=== PATIENT | female | born 1995 | race Caucasian/White ===

== ENCOUNTER 2019-03-17 13:15 | Outpatient (CLI) | payer MEDICAID, SELFPAY ==
--- NOTE | 2019-03-17 13:30 | US_ITS ---
WS: [id number] OB ultrasound, 03/17/2019 Clinical Data: GESTATIONAL DIABETES GROWTH CHECK Comparison: OB ultrasound, 02/17/2019. Findings: There is a single intrauterine in the vertex presentation. The placenta is Anterior and gra de 2. The heart rate is 141 beats per minute. Measurements of growth and development: BPD: 9.1 cm HC: 34.5 cm AC: 32.1 cm FL: 7.1 cm The estimated weight is 2994 or approximately 6 pounds 10 ounces. The estimated gestational age is 37w2d with an MANI of approximately 04/05/2019. US/ [place] [id number] Impression: 1. Single intrauterine in vertex presentation. 2. Estimated gestational age 37w2d with an MANI of 04/05/2019. 3. heart rate 141 beats per minute.
== END 2019-03-17 13:16 | disposition home or self-care (01) ==
LOC: RAD 13:17
PROVIDERS: Family Provider Family Medicine; PCP Family Medicine; Visit Provider Family Medicine
DX: O24.419 Gestational diabetes mellitus in pregnancy, unspecified control (principal); Z3A.37 37 weeks gestation of pregnancy
CPT/HCPCS: 76816

== ENCOUNTER 2019-03-28 12:05 | Outpatient (CLI) | payer MEDICAID, SELFPAY ==
[2019-03-28] VITALS (11 sets, daily range): BP systolic 108–139; BP diastolic 56–89; PULSE 94–118; RESP 18; TEMP 36.8; BMI 29.2
[2019-03-28 13:07] LABS: Add Urine Microscopic? YES; Bilirubin Urine Neg (NEGATIVE); Blood Urine 2+ (Negative); Glucose Urine UA Norm (Normal); Ketones Urine Negative (Negative); Leukocyte Esterase Urine Negative (Negative); Nitrate Urine Negative (Negative); Protein Urine Neg (Negative); Specific Gravity, Urine 1.005 (1.005-1.030); Urine Appearance Hazy (CLEAR); Urine Color Straw (Yellow); Urobilinogen Urine Norm (Negative)
[2019-03-28 13:28] LABS: Add Urine Culture? No; Bacteria Urine TRACE; RBC Urine 0-4 /hpf (0-2); Squamous Epithelial Cell Urine 40-55 (0-5)
[2019-03-28 13:41] LABS: Basophils % 0.3 %; Eosinophils % 0.4 %; Hematocrit 35.5 % (37.0-47.0); Hemoglobin 10.9 g/dL (11.5-15.3); Lymphocytes # 1.5 10^3/uL (0.8-4.8); Mean Corpuscular HGB Conc 30.7 g/dL (30.0-36.0); Mean Corpuscular Hemoglobin 28.1 pg (28.0-34.0); Mean Corpuscular Volume 91.5 fL (81-99); Mean Platelet Volume 9.8 fL (7.4-10.4); Monocytes # 0.7 10^3/uL (0.2-0.9); Monocytes % 9.4 %; Neutrophils # 4.7 10^3/uL (1.8-7.7); Neutrophils % 67.6 %; Nucleated Red Blood Cells % 0 %; Platelet Count 320 10^3/cmm (130-400); Red Blood Count 3.88 10^6/uL (4.1-5.3); Red Cell Distribution Width 15.9 % (12.1-15.1)
[2019-03-28 13:52] LABS: Alanine Aminotransferase 17 U/L (0-33); Albumin Level 3.3 g/dL (3.5-5.2); Alkaline Phosphatase 185 IU/L (35-105); Aspartate Amino Transferase 18 U/L (0-32); Blood Urea Nitrogen 5 mg/dL (6-20); Carbon Dioxide 19 mmol/L (22-29); Chloride 105 mmol/L (98-107); Globulin 3.1 g/dL (1.3-4.6); Glomerular Filtration Rate 121.8 mL/min (90-130); Glucose 102 mg/dL (74-109); Sodium 136 mmol/L (136-145); Total Bilirubin 0.2 mg/dL (0.15-1.2); Total Protein 6.4 g/dL (6.6-8.7)
--- NOTE | 2019-03-28 14:27 | PC.NURSE ---
at 1147 called to let this nurse know that is is sending this pt here with orders for an NST, Pre-eclamptic work up, urine-protein creatinine ratio and serial blood pressures every 15 min.
[2019-03-28 14:40] LABS: Urine Creatinine 34 mg/dL (28-217); Urine Protein Random 5 mg/dL
[2019-03-28 15:02] LABS: UPRO/UCREAT Ratio 0.15 mg/mg CR
== END 2019-03-28 15:17 | disposition home or self-care (01) ==
PROVIDERS: Family Provider Family Medicine; PCP Family Medicine; Visit Provider Family Medicine
DX: O13.9 Gestational [pregnancy-induced] hypertension without significant proteinuria, unspecified trimester (principal); Z3A.00 Weeks of gestation of pregnancy not specified
CPT/HCPCS: 36415; 59025; 80053; 81001; 82570; 84156; 84550; 85025; 99211

== ENCOUNTER 2019-03-31 13:24 | Outpatient (CLI) | payer MEDICAID, SELFPAY ==
[2019-03-31 13:48] VITALS: BP 134/83; PULSE 107; RESP 18
[2019-03-31 14:03] VITALS: BP 137/82; PULSE 100; RESP 18
[2019-03-31 14:18] VITALS: BP 0/0
[2019-03-31 14:20] VITALS: BP 134/91; PULSE 98
[2019-03-31 14:35] VITALS: BMI 29.3
== END 2019-03-31 14:30 | disposition home or self-care (01) ==
LOC: OPOB 14:09 → OBGYN 14:24 → OPOB 04-01 08:56
PROVIDERS: Family Provider Family Medicine; PCP Family Medicine; Visit Provider Family Medicine
DX: O16.9 Unspecified maternal hypertension, unspecified trimester (principal); Z3A.00 Weeks of gestation of pregnancy not specified
CPT/HCPCS: 59025; 99211

== ENCOUNTER 2019-04-01 23:00 | Outpatient (CLI) | payer BC, MEDICAID, SELFPAY ==
[2019-04-01 23:15] VITALS: RESP 18; TEMP 36.8
[2019-04-01 23:34] VITALS: BP 142/97; PULSE 93
[2019-04-01 23:36] VITALS: BMI 29.7
[2019-04-01 23:49] VITALS: BP 131/80; PULSE 85
[2019-04-02 00:03] VITALS: BP 0/0
[2019-04-02 00:04] VITALS: BP 139/90; PULSE 84
[2019-04-04 11:35] VITALS: BP 141/79; PULSE 133
== END 2019-04-02 00:10 | disposition home or self-care (01) ==
LOC: OPOB 23:14 → OBGYN 23:59 → OPOB 04-04 07:44
PROVIDERS: Family Provider Family Medicine; PCP Family Medicine; Visit Provider Family Medicine
DX: O26.899 Other specified pregnancy related conditions, unspecified trimester (principal); Z3A.00 Weeks of gestation of pregnancy not specified
CPT/HCPCS: 99211

== ENCOUNTER 2019-04-04 11:29 | Outpatient (CLI) | payer BC, MEDICAID, SELFPAY ==
[2019-04-04 11:34] VITALS: BP 141/79; PULSE 113
[2019-04-04 11:41] VITALS: RESP 16; TEMP 36.7
[2019-04-04 11:42] VITALS: BMI 29.5
[2019-04-04 11:43] VITALS: BMI 29.5
[2019-04-04 12:23] VITALS: BP 138/80; PULSE 118
[2019-04-04 12:38] LABS: Basophils % 0.1 %; Eosinophils % 0.5 %; Hematocrit 38.5 % (37.0-47.0); Hemoglobin 12.2 g/dL (11.5-15.3); Lymphocytes # 1.7 10^3/uL (0.8-4.8); Mean Corpuscular HGB Conc 31.7 g/dL (30.0-36.0); Mean Corpuscular Hemoglobin 27.7 pg (28.0-34.0); Mean Corpuscular Volume 87.5 fL (81-99); Mean Platelet Volume 10.8 fL (7.4-10.4); Monocytes # 0.5 10^3/uL (0.2-0.9); Monocytes % 6.3 %; Neutrophils # 6.1 10^3/uL (1.8-7.7); Neutrophils % 72.9 %; Nucleated Red Blood Cells % 0 %; Platelet Count 276 10^3/cmm (130-400); Red Cell Distribution Width 16.3 % (12.1-15.1); White Blood Count 8.3 10^3/uL (4.0-10.0)
[2019-04-04 12:44] LABS: Add Urine Microscopic? YES; Bilirubin Urine Neg (NEGATIVE); Blood Urine 2+ (Negative); Glucose Urine UA Norm (Normal); Ketones Urine Negative (Negative); Leukocyte Esterase Urine Negative (Negative); Nitrate Urine Negative (Negative); Protein Urine Neg (Negative); Urine Appearance SL Hazy (CLEAR); Urine Color Straw (Yellow); Urobilinogen Urine Norm (Negative); pH Urine 7 (5-7)
[2019-04-04 12:48] LABS: Chloride 102 mmol/L (98-107); Potassium 3.8 mmol/L (3.5-5.1); Sodium 133 mmol/L (136-145)
[2019-04-04 12:51] LABS: Urine Creatinine 43 mg/dL (28-217); Urine Protein Random 5 mg/dL
[2019-04-04 12:54] LABS: UPRO/UCREAT Ratio 0.12 mg/mg CR
[2019-04-04 12:57] LABS: Bacteria Urine 1+; RBC Urine 0-4 /hpf (0-2); Squamous Epithelial Cell Urine 15-25 (0-5); WBC Urine 0-4 /hpf (0-5)
[2019-04-04 12:58] LABS: Add Urine Culture? No
[2019-04-04 13:02] LABS: Alanine Aminotransferase 18 U/L (0-33); Albumin Level 3.6 g/dL (3.5-5.2); Alkaline Phosphatase 210 IU/L (35-105); Anion Gap 16.8 (5-19); Aspartate Amino Transferase 19 U/L (0-32); Blood Urea Nitrogen 9 mg/dL (6-20); Calcium 9.9 mg/dL (8.5-10.5); Carbon Dioxide 19 mmol/L (22-29); Globulin 3.4 g/dL (1.3-4.6); Glomerular Filtration Rate 87.4 mL/min (90-130); Glucose 131 mg/dL (74-109); Total Bilirubin 0.2 mg/dL (0.15-1.2); Uric Acid 6.7 mg/dL (2.4-5.7)
== END 2019-04-04 12:20 | disposition home or self-care (01) ==
PROVIDERS: Family Provider Family Medicine; PCP Family Medicine; Visit Provider Family Medicine
DX: O24.419 Gestational diabetes mellitus in pregnancy, unspecified control (principal); Z3A.00 Weeks of gestation of pregnancy not specified; O16.9 Unspecified maternal hypertension, unspecified trimester
CPT/HCPCS: 36415; 59025; 80053; 81001; 82570; 84156; 84550; 85025; 99211; A9270

== ENCOUNTER 2019-04-06 19:30 | Inpatient (IN) | payer BC, MEDICAID, SELFPAY ==
[2019-04-06] VITALS (8 sets, daily range): BP systolic 0–156; BP diastolic 0–93; PULSE 79–110; RESP 16–18; TEMP 36.9; BMI 29.9
[2019-04-06] MEDS: miSOPROStol 100 mcg tablet 25 MCG VAGINAL (21:27)
[2019-04-06 21:43] LABS: Basophils % 0.2 %; Eosinophils % 0.3 %; Hematocrit 35.8 % (37.0-47.0); Hemoglobin 11.3 g/dL (11.5-15.3); Lymphocytes % 22.4 %; Mean Corpuscular HGB Conc 31.6 g/dL (30.0-36.0); Mean Corpuscular Hemoglobin 27.4 pg (28.0-34.0); Mean Corpuscular Volume 86.9 fL (81-99); Mean Platelet Volume 11.1 fL (7.4-10.4); Monocytes # 0.8 10^3/uL (0.2-0.9); Monocytes % 9.2 %; Neutrophils % 67.4 %; Nucleated Red Blood Cells % 0 %; Platelet Count 295 10^3/cmm (130-400); Red Blood Count 4.12 10^6/uL (4.1-5.3); Red Cell Distribution Width 16.1 % (12.1-15.1); White Blood Count 8.9 10^3/uL (4.0-10.0)
[2019-04-06 21:44] LABS: Glucose Point of Care 103 mg/dL (70-110)
[2019-04-07] VITALS (139 sets, daily range): BP systolic 0–167; BP diastolic 0–95; PULSE 86–141; RESP 16–19; TEMP 36.6–37.8; O2SAT 72–99
[2019-04-07] MEDS: promethazine 25 mg/mL SDV 1 mL IM (02:41)
[2019-04-07] MEDS: morphine 4 mg/mL SDV 1 mL 8 MG IM (02:42)
--- NOTE | 2019-04-07 03:17 | PC.NURSE ---
Placed on left side with wedge under back. Pain medication was injected with ease into the right glut. IM
[2019-04-07] MEDS: dextrose 5%-lactated ringers 1,000 ML 125 ML IV (06:45)
--- NOTE | 2019-04-07 06:56 | PC.NURSE ---
D5LR started at 125ml
--- NOTE | 2019-04-07 07:30 | PM.OBGYHP ---
Providers/Chief Complaint Admitting Physician: Mahsa Clay MD Primary Care Provider: Mahsa Clay MD Chief Complaint: iup HPI DIRECTOR [employer] History of Present Illness Madhuri Moncada is a 24 year old female 1 para 0 with an EDC of 04/14/2019 as determined by sure last menstrual period of 07/08/2018 and confirmed by ultrasound and positive test on 08/09/2018. She presented last evening at 38-6/7 weeks gestation for cervical ripening and induction of labor secondary to gestational hypertension without evidence of preeclampsia or severe features. Her blood pressure began to rise in her 36-week of , and labs and testing have been fine and she has been asymptomatic. Patient also has gestational diabetes which has been lifestyle controlled, hypothyroidism and anemia of . She had her membranes swept in the office during her routine clinical visit earlier this week. Present Details : 1 Para: 0 Date of Last Menstrual Period: 07/02/18 Calculated Date of Delivery: 04/08/19 Gestational Age Based on Last Menstrual Period: 39 Labs Rubella: Immune RPR: Negative Review of Systems Const: Denies: fever Eyes: Denies: blurry vision or blind spots Card: Denies: chest pain or edema Resp: Denies: shortness of breath or productive cough GI: Denies: nausea or vomiting : Reports: pelvic pain (Consistent with intermittent contractions after administration of Cytotec) Skin/Breast: Denies: rash or yellow skin Neuro: Denies: headache Medications/Allergies Allergies Allergy/AdvReac Type Severity Reaction Status Date / Time amoxicillin Allergy ALGY-Rash Verified 03/22/19 09:50 REPLACED BY [facility] DIRECTOR [employer] Statuses (acute, chronic, etc) shown below reflect problem list status as previously entered and may not be historically accurate Medical History (Updated 04/07/19 @ 08:01 by Mahsa Clay MD) Anxiety and depression (Acute) Hypothyroidism (acquired) (Acute) Family History (Updated 04/07/19 @ 07:36 by Mahsa Clay MD) Father CAD (coronary artery disease) Grandmother Diabetes Social History (Updated 04/07/19 @ 07:38 by Mahsa Clay MD) Smoking and tobacco status: never smoked Second hand smoke exposure: Yes Alcohol intake: never Substance/Drug Use: never Adopted: No Caregiver/support person: Yes Lives independently: Yes Household members: spouse Marital status: Number of children: 0 Number of grandchildren: 0 History History 1 Term 0 Miscarriages/Ectopic 0 0 Living Children 0 Vitals/I&O/Wt Last Vital Signs Temp 98.6 F 04/07/19 03:40 Pulse 98 04/07/19 06:38 Resp 18 04/07/19 03:40 BP 146/69 04/07/19 06:38 04/06/19 04/07/19 04/07/19 22:59 06:59 14:59 Intake Total 660 / 660 Output Total 900 / 900 Balance -240 / -240 Weight last 48 hrs Weight 92.079 kg Physical Exam Narrative: EXAM NARRATIVE: For complete physical examination please refer to her record. heart tones are category 1 with a normal baseline and moderate variability. There are accelerations and no decelerations. Upon patient's arrival last evening she had occasional contractions. Currently she is kai every 2 minutes, and they are moderate to strong. Const: COMMON NORMALS: no apparent distress, oriented x3, healthy appearing, alert and well nourished Resp: COMMON NORMALS: normal respiratory effort Cardio: COMMON NORMALS: regular rate and regular rhythm RATE: regular rate RHYTHM: regular rhythm : MANUAL OB EXAM: dilated 2 cm (2-1/2), effaced 75%, station high (-3) and other (Vertex) AMNIOTIC FLUID: clear Extremity: COMMON NORMALS: no pedal edema Neuro: COMMON NORMALS: oriented x3 SENSORIUM/ORIENTATION: Yes alert Psych: COMMON NORMALS: mental status grossly normal, thought process normal, cooperative, affect normal, speech normal and activity/motor behavior normal SPEECH: Yes normal speech MOOD & AFFECT: Yes anxious THOUGHT PROCESS: normal thought process Skin: COMMON NORMALS: no rashes or lesions noted, skin turgor normal and no jaundice GENERAL SKIN EXAM: no rashes or lesions noted and turgor normal Data : 04/06/19 21:10 Other Labs: Blood type: O+ Antibody screen: Negative Rubella: Immune Hemoglobin: Initially 12.9, 28-week recheck 11.3 Urine culture: Negative Hepatitis B surface antigen: Negative RPR: Negative Hepatitis C antibody: Negative Rubella: Immune HIV screen: Negative Pap: Normal GC/Chlamydia: Negative/negative 1 hour GTT: 177 3-hour GTT: Fasting of 96, 1 hour 212, 2-hour 207, 3-hour 110 Group B strep screen: Negative TSH: Has been within normal range for when checked with each trimester, antibodies negative A&P Assessment and plan (1) Encounter for induction of labor: Secondary to gestational hypertension Cytotec was discussed in the office and placed last evening upon her arrival. She has been kai regularly and requires no further doses at this time. She is actually requesting an epidural and is receiving IV fluids in preparation for it at this time. Status: Acute Code(s): Z34.90 - Encounter for supervision of normal , unspecified, unspecified trimester (2) 39 weeks gestation of : Status: Acute Code(s): Z3A.39 - 39 weeks gestation of (3) Hypothyroidism affecting , antepartum: Patient will continue her levothyroxine, and we will check her TSH . Status: Acute Code(s): O99.280 - Endocrine, nutritional and metabolic diseases complicating , unspecified trimester; E03.9 - Hypothyroidism, unspecified (4) Gestational diabetes mellitus (GDM) affecting first : Patient has had good control with lifestyle alone. We will monitor blood sugars throughout labor and treat accordingly. Status: Acute Code(s): O24.419 - Gestational diabetes mellitus in , unspecified control (5) Gestational hypertension affecting first : Patient has been asymptomatic and has had normal labs with no evidence of preeclampsia. She has had no blood pressures in the severe range. We will continue to monitor throughout labor and the period. Status: Acute Code(s): O13.9 - Gestational [-induced] hypertension without significant proteinuria, unspecified trimester (6) Anemia affecting first : Patient has had a CBC upon admission and will monitor postdelivery as well. She has been taking iron regularly. Status: Acute Code(s): O99.019 - Anemia complicating , unspecified trimester (7) Spontaneous rupture of membranes: This occurred this morning and was productive of clear fluid. Status: Acute Attestations Medical Necessity Statement*: As patient has not yet delivered but did experience tenuous rupture of membranes, she will continue to require inpatient hospitalization. Coding Level of Care Code Acute Unemployment Insurance Hearing Officer for Chg Fwd Diagnoses Encounter for induction of labor Z34.90 39 weeks gestation of Z3A.39 Hypothyroidism affecting , antepartum O99.280; E03.9 Gestational diabetes mellitus (GDM) affecting first O24.419 Gestational hypertension affecting first O13.9 Anemia affecting first O99.019 Spontaneous rupture of membranes
[2019-04-07 07:45] LABS: Glucose Point of Care 149 mg/dL (70-110)
[2019-04-07] MEDS: lactated ringers 1,000 ML 999 ML IV (07:49)
[2019-04-07] MEDS: lactated ringers 1,000 ML 125 ML IV ×3 (09:49→23:56)
[2019-04-07 09:59] LABS: Glucose Point of Care 97 mg/dL (70-110)
[2019-04-07 14:05] LABS: Glucose Point of Care 78 mg/dL (70-110)
[2019-04-07 18:10] LABS: Glucose Point of Care 76 mg/dL (70-110)
--- NOTE | 2019-04-07 19:32 | ANES.PROC ---
Anesthesia Procedures Procedure/Date: 04/07/19 Procedure Narrative: called to bedside by RN to assess epidural that had been working previously but was not providing much pain relief 08/09. untaped and checked for patency, bolused with PF Lido 2% 10ml. retaped and assessed for numbness. Patient stated that her legs were getting warm and she felt better. reassessed 10 minutes later, patient laughing and visiting with family, stating she felt much better. Both legs were heavy. Epidural pump at 13ml/hr
--- NOTE | 2019-04-07 20:30 | PC.NURSE ---
Pt called RN to room to assess epidural, patient c/o pain and burning at epidural site and no relief from contraction pain. RN stopped epidural at 2015. Call to anesthesia at 2019 to Dedra Calix CRNA to update on patient complaints and that pump was stopped. ACCOUNTANT ASSISTANT orders to remove epidural and call back if patient decided to get another epidural placed as patient had previously reported that she did not want to redo the epidural.
--- NOTE | 2019-04-07 21:55 | ANES.PROC ---
Anesthesia Procedures Procedure/Date: 04/07/19 Procedure Narrative: 1st epidural placed this morning was no longer providing pain relief. It also was causing pain when PCEA bolus was given. attempts were made previously as noted in chart. at that time patient refused to have the epidural replaced. RN later notified me that patient had changed her mind. epidural placed easily without complications Epidural: Time Out Performed: Yes Consents Signed: Procedure Consent Consent: from patient, risks and benefits reviewed and patient agrees to proceed Lumbar Level: L3-L4 Epidural position: sitting Epidural procedure: sterile prep of area, 1% lidocaine to numb the area, 18 g needle, negative for paresthesia passed, neg for paresthesia, test dose given, 1.5% xylocaine 1:200k epi (5ml), placed PCEA, no systemic response, sterile dressing applied, L.U.D. no apparent complications and 0.2% Ropiavacaine @ mls/hr (13)
[2019-04-07 22:21] LABS: Glucose Point of Care 100 mg/dL (70-110)
[2019-04-08] VITALS (76 sets, daily range): BP systolic 0–168; BP diastolic 0–95; PULSE 76–150; RESP 16–18; TEMP 36.7–37.3; O2SAT 94–98
--- NOTE | 2019-04-08 00:37 | PM.OBGYPN ---
APPARATUS ENGINEERING TECHNOLOGIST Subjective Subjective: Interval history: Patient experienced spontaneous rupture of membranes 04/07/2019 at approximately 6:32 AM and continued to contract regularly with increasing frequency and intensity off of the only dose of Cytotec that she had the night prior. She received an epidural and was initially comfortable for quite some time. She has had continued leakage of clear fluid. Her epidural began not be as effective, and she received a dose of lidocaine per anesthesia which provided relief for a few hours. Throughout this time she continued to gradually dilate and was 8 cm dilated and 0 station at 9 PM. She then opted to have her epidural replaced and was soon comfortable again. She then rested and informed us that she was having pressure most of the time with an increase in pressure during her contractions. Upon recheck at midnight she was 8 cm dilated and 0 to +1 station. Labor: Station: 0 Amniotic Membrane Status: Leaking Monitor Mode: External Contraction Pattern: Regular Status: Category l Vitals/I&O/Wt Last Vital Signs Temp 99.9 F H 04/07/19 21:00 Pulse 133 H 04/08/19 00:28 Resp 19 H 04/07/19 21:00 BP 143/91 04/08/19 00:28 Pulse Ox 97 04/07/19 21:44 04/07/19 04/07/19 04/08/19 14:59 22:59 06:59 Intake Total 770.833 / 770.833 500.50 / 1271.333 Output Total 1300 / 1300 Balance 770.833 / 770.833 -799.50 / -28.667 Weight last 48 hrs Weight 92.079 kg Physical Exam Narrative: EXAM NARRATIVE: heart tones have a baseline in the 150s with moderate variability, accelerations and an occasional shallow variable deceleration. Contractions are every 2 to 5 minutes and moderate to strong. : MANUAL OB EXAM: dilated 8 cm, effaced (85 to 90%), station (0 to +1) and other (caput noted) Psych: COMMON NORMALS: cooperative MOOD & AFFECT: Yes anxious (At times which is chronic for her.) Urinary Catheter Management^: Lopez: Cath Placed During This Visit: yes Urethral Indwelling: Yes Reason for Continuing Indwelling Catheter: Required Immobilization for Trauma or Surgery or Anesthesia Urinary Catheter Date of Insertion: 04/07/19 Urinary Catheter Time of Insertion: 09:21 Data : 04/06/19 21:10 A&P Assessment and plan (1) 39 weeks gestation of : Status: Acute Code(s): Z3A.39 - 39 weeks gestation of (2) Encounter for induction of labor: At this time we will augment her labor with Pitocin in order to achieve more frequent and stronger contractions. Status: Acute Code(s): Z34.90 - Encounter for supervision of normal , unspecified, unspecified trimester (3) Hypothyroidism affecting , antepartum: Status: Acute Code(s): O99.280 - Endocrine, nutritional and metabolic diseases complicating , unspecified trimester; E03.9 - Hypothyroidism, unspecified (4) Gestational diabetes mellitus (GDM) affecting first : Patient's blood glucose has remained below 120 throughout her labor with the exception of 1 checked early this morning just after she had a liquid snack. Status: Acute Code(s): O24.419 - Gestational diabetes mellitus in , unspecified control (5) Gestational hypertension affecting first : She remains without severe features and has had no evidence of preeclampsia. Status: Acute Code(s): O13.9 - Gestational [-induced] hypertension without significant proteinuria, unspecified trimester (6) Anemia affecting first : Status: Acute Code(s): O99.019 - Anemia complicating , unspecified trimester (7) Spontaneous rupture of membranes: We will continue to monitor for signs of infection given her length of time with ruptured membranes. Status: Acute Attestations Medical Necessity Statement*: As patient has not yet delivered she will require continued inpatient hospitalization. Coding Level of Care Code Acute Viscosity Tester for Chg Fwd Diagnoses 39 weeks gestation of Z3A.39 Encounter for induction of labor Z34.90 Hypothyroidism affecting , antepartum O99.280; E03.9 Gestational diabetes mellitus (GDM) affecting first O24.419 Gestational hypertension affecting first O13.9 Anemia affecting first O99.019 Spontaneous rupture of membranes
[2019-04-08] MEDS: oxytocin 30 UNIT/500 ML BAG IV (00:39)
--- NOTE | 2019-04-08 02:28 | PC.NURSE ---
MD at bedside discussing POC with patient
[2019-04-08 02:40] LABS: Glucose Point of Care 102 mg/dL (70-110)
--- NOTE | 2019-04-08 03:51 | P.PN_ITS ---
ASSISTANT CLINICAL NURSE MANAGER Subjective Subjective: Interval history: We began Pitocin augmentation shortly after midnight, and patient has been experiencing more intense and more frequent contractions and pressure in her perineum. She is even had increased bloody show. Labor: Station: +1 Amniotic Membrane Status: Leaking Monitor Mode: External Contraction Pattern: Regular Status: Category l Vitals/I&O/Wt Last Vital Signs Temp 98.9 F 04/08/19 03:45 Pulse 120 H 04/08/19 03:42 Resp 18 04/08/19 03:45 BP 150/84 04/08/19 03:42 Pulse Ox 97 04/07/19 21:44 04/07/19 04/07/19 04/08/19 14:59 22:59 06:59 Intake Total 770.833 / 770.833 500.50 / 1271.333 25.467 / 1296.800 Output Total 1300 / 1300 Balance 770.833 / 770.833 -799.50 / -28.667 25.467 / -3.200 Weight last 48 hrs Weight 92.079 kg Physical Exam Narrative: EXAM NARRATIVE: heart tones have a baseline in the 150s with moderate variability, accelerations and an occasional variable deceleration. Contractions are every 2 to 2-1/2 minutes and strong. : MANUAL OB EXAM: dilated 9 cm, effaced (90%) and station +1 Urinary Catheter Management^: Lopez: Cath Placed During This Visit: yes Urethral Indwelling: Yes Reason for Continuing Indwelling Catheter: Required Immobilization for Trauma or Surgery or Anesthesia Urinary Catheter Date of Insertion: 04/07/19 Urinary Catheter Time of Insertion: 09:21 Data : 04/06/19 21:10 A&P Assessment and plan (1) Encounter for induction of labor: Now that patient has developed a more adequate contraction pattern with increased intensity and frequency of her contractions on the Pitocin, she is experiencing cervical change once again. Her pain is well controlled with the exception of the pressure which she is handling quite well. She and her are encouraged by the cervical change. She has remained afebrile. We will continue to follow her progress closely and expect continued progress given rupture of membrane status. Status: Acute Code(s): Z34.90 - Encounter for supervision of normal , unspecified, unspecified trimester (2) 39 weeks gestation of : Status: Acute Code(s): Z3A.39 - 39 weeks gestation of (3) Hypothyroidism affecting , antepartum: Status: Acute Code(s): O99.280 - Endocrine, nutritional and metabolic diseases complicating , unspecified trimester; E03.9 - Hypothyroidism, unspecified (4) Gestational diabetes mellitus (GDM) affecting first : Accu-Cheks remain less than 120 Status: Acute Code(s): O24.419 - Gestational diabetes mellitus in , unspecified control (5) Gestational hypertension affecting first : Blood pressures have been stable with no pressures being in the severe range. Patient remains asymptomatic. Status: Acute Code(s): O13.9 - Gestational [-induced] hypertension without significant protei oleg, unspecified trimester (6) Anemia affecting first : Status: Acute Code(s): O99.019 - Anemia complicating , unspecified trimester (7) Spontaneous rupture of membranes: Status: Acute Attestations Medical Necessity Statement*: As patient has not yet delivered she will co ntinue to need inpatient hospitalization. Coding Level of Care Code Acute Regional Sales Leader for Chg Fwd Diagnoses Encounter for induction of labor Z34.90 39 weeks gestation of Z3A.39 Hypothyroidism affecting , antepartum O99.280; E03.9 Gestational diabetes mellitus (GDM) affecting first O24.419 Gestational hypertension affecting first O13.9 Anemia affecting first O99.019 Spontaneous rupture of membranes
[2019-04-08] MEDS: diphenhydrAMINE 50 mg/mL SDV 1mL 25 MG IVP (04:44)
[2019-04-08 06:30] LABS: Glucose Point of Care 114 mg/dL (70-110)
--- NOTE | 2019-04-08 06:31 | PC.NURSE ---
Dr. Clay at nurses station, updated on SVE, vitals and strip reviewed. MD orders to call when complete dilation.
[2019-04-08] MEDS: lactated ringers 1,000 ML 125 ML IV ×2 (07:57→12:46)
--- NOTE | 2019-04-08 08:12 | P.PN_ITS ---
OVERAGE SHORTAGE AND DAMAGE CLERK Subjective Subjective: Interval history: Patient continued on Pitocin until she was on 20 milliunits/min and was kai every 2 to 2-1/2 minutes. She had been dilated from 9 cm to just a rim of cervix remaining from 7-11 o'clock on clock face. We tried several different position changes, and the rim remained and then began to swell. Labor: Station: +1 Amniotic Membrane Status: Leaking Monitor Mode: External Contraction Pattern: Regular Status: Category l Vitals/I&O/Wt Last Vital Signs Temp 98.4 F 04/08/19 06:29 Pulse 118 H 04/08/19 07:25 Resp 16 04/08/19 06:29 BP 0/0 04/08/19 08:10 Pulse Ox 97 04/07/19 21:44 04/07/19 04/08/19 04/08/19 22:59 06:59 14:59 Intake Total 500.50 / 1271.333 142.884 / 4852.219 7013 / 1000 Output Total 1300 / 1300 800 / 2100 Balance -799.50 / -28.667 -657.116 / -356.743 0965 / 1000 Weight last 48 hrs Weight 92.079 kg Physical Exam Narrative: EXAM NARRATIVE: heart tones have a baseline in the 150s with moderate variability, accelerations and occasional variable decelerations. She is kai every 2 to 2-1/2 minutes strong intensity. : MANUAL OB EXAM: dilated (Maternal right rim with swelling and firmness) and station +1 Urinary Catheter Management^: Lopez: Cath Placed During This Visit: yes Urethral Indwelling: Yes Reason for Continuing Indwelling Catheter: Required Immobilization for Trauma or Surgery or Anesthesia Urinary Catheter Date of Insertion: 04/07/19 Urinary Catheter Time of Insertion: 09:21 Data : 04/06/19 21:10 A&P Assessment and plan (1) Encounter for induction of labor: At this point with all position changes having been tried with no progress with recent cervical exam and cervical swelling and firmness, I have called a section. Dr. Holloway and anesthesiology were informed. Patient and family are in agreement. Patient remains afebrile and heart tones remained stable. Blood glucose has been no higher than 114. Status: Acute Code(s): Z34.90 - Encounter for supervision of normal , unspecified, unspecified trimester (2) 39 weeks gestation of : Status: Acute Code(s): Z3A.39 - 39 weeks gestation of (3) Hypothyroidism affecting , antepartum: Status: Acute Code(s): O99.280 - Endocrine, nutritional and metabolic diseases complicating , unspecified trimester; E03.9 - Hypothyroidism, unspecified (4) Gestational diabetes mellitus (GDM) affecting first : Status: Acute Code(s): O24.419 - Gestational diabetes mellitus in , unspecified control (5) Gestational hypertension affecting first : Status: Acute Code(s): O13.9 - Gestational [-induced] hypertension without significant proteinuria, unspecified trimester (6) Spontaneous rupture of membranes: Status: Acute (7) Anemia affecting first : Status: Acute Code(s): O99.019 - Anemia complicating , unspecified trimester Attestations Medical Necessity Statement*: As patient has not yet delivered she will continue to need inpatient hospitalization. Coding Level of Care Code Acute Air Cargo Ground Crew Supervisor for Chg Fwd Diagnoses Encounter for induction of labor Z34.90 39 weeks gestation of Z3A.39 Hypothyroidism affecting , antepartum O99.280; E03.9 Gestational diabetes mellitus (GDM) affecting first O24.419 Gestational hypertension affecting first O13.9 Spontaneous rupture of membranes Anemia affecting first O99.019
[2019-04-08] MEDS: citric acid-sodium citrate 30 mL UDC PO (08:22)
[2019-04-08] MEDS: famotidine 20 mg/2 mL INJ IVP (08:23)
[2019-04-08] MEDS: metoclopramide 5 mg/mL SDV 2 mL 10 MG IVP (08:23)
--- NOTE | 2019-04-08 08:36 | P.CONIM_ITS ---
Providers/Reason For Consult Consulting Physican/Specialty*: Toñito Holloway MD consultation for section Reason for Consult*: Need for section Attending Physician: Mahsa Clay MD Primary Care Provider: Mahsa Clay MD History of Present Illness History of Present Illness Madhuri Moncada is a 24 year old at 39.2 weeks gestation by LMP consistent with early ultrasound. Her is complicated by gestational diabetes that is lifestyle controlled, gestational hypertension, hypothyroidism, anemia, anxiety. The patient was brought in for induction of labor secondary to gestational diabetes and gestational hypertension. The patient was started on Cytotec on the evening of 04/06/2019. The patient may change and ruptured at approximately 6:32 AM on 04/07/2019. The patient was 9 cm around midnight and changed to an anterior rim around 3:00 in the morning on the morning of 04/08/2019. Despite multiple position changes, she has not progressed and has not gotten to the complete stage. For this reason I was consulted for section. Review of Systems Narrative: The patient denies any chest pains, shortness of breath, nausea, vomiting, diarrhea, constipation. The patient had 1 temperature of 100 overnight. Meds/Allergies Home Medications and Allergies Home Medications Medication Instructions Recorded Confirmed Type 1 tab PO DAILY 03/22/19 04/01/19 History ferrous sulfate 325 mg PO DAILY 03/22/19 04/01/19 History levothyroxine 25 mcg PO DAILY 03/22/19 04/01/19 History Allergies Allergy/AdvReac Type Severity Reaction Status Date / Time amoxicillin Allergy ALGY-Rash Verified 03/22/19 09:50 Current Medications Current Medications Generic Name Dose Route Start Last Admin Trade Name Freq PRN Reason Stop Dose Admin Ropivacaine 200 mg in 100 mls @ 6 mls/hr 04/07/19 07:45 04/08/19 04:55 Naropin Premix EPIDURAL 13 mls/hr .[id number] MAX Administration Lactated Ringer's 1,000 mls @ 125 mls/hr 04/07/19 23:45 04/08/19 07:57 Lactated Ringers IV 125 mls/hr .Q8H MAX Administration Oxytocin 30 unit in 500 mls @ 1 mls/hr 04/08/19 00:30 04/08/19 04:34 Pitocin IV 20 milliunit/min .Q24H AMX 20 mls/hr Titration Protocol 1 MILLIUNIT/MIN PFSH Acute PFSH: Statuses (acute, chronic, etc) shown below reflect problem list status as previously entered and may not be historically accurate Medical History Anxiety and depression (Acute) Hypothyroidism (acquired) (Acute) Surgical History No pertinent past surgical history (Acute) Family History Father CAD (coronary artery disease) Grandmother Diabetes Social History Smoking and tobacco status: never smoked Second hand smoke exposure: Yes Alcohol intake: never Substance/Drug Use: never Adopted: No Caregiver/support person: Yes Lives independently: Yes Household members: spouse Marital status: Number of children: 0 Number of grandchildren: 0 Female Reproductive History: Date of last menstrual period: 07/02/18 : 1 Vitals/I&O/Wt Last Vital Signs Temp 98.4 F 04/08/19 06:29 Pulse 118 H 04/08/19 07:25 Resp 16 04/08/19 06:29 BP 0/0 04/08/19 08:25 Pulse Ox 97 04/07/19 21:44 04/07/19 04/08/19 04/08/19 22:59 06:59 14:59 Intake Total 500.50 / 1271.333 142.884 / 5797.014 3479 / 1000 Output Total 1300 / 1300 800 / 2100 Balance -799.50 / -28.667 -657.116 / -795.562 4655 / 1000 Weight last 48 hrs Weight 203 lb Physical Exam Narrative: EXAM NARRATIVE: General: Alert and oriented x3 Eyes: Pupils equal round and reactive to light and accommodation Mouth: Mucous membranes moist, pharynx non-erythematous Cardiac: Regular rate and rhythm without murmurs Lungs: Clear to auscultation bilaterally without wheezes, crackles or rhonchi Abdomen: Soft, non-tender, fundus consistent with gestational age Extremities: Trace edema in the bilateral lower extremities Urinary Catheter Management^: Lopez: Cath Placed During This Visit: yes Urethral Indwelling: Yes Reason for Continuing Indwelling Catheter: Required Immobilization for Trauma or Surgery or Anesthesia Urinary Catheter Date of Insertion: 04/07/19 Urinary Catheter Time of Insertion: 09:21 A&P Assessment and plan (1) Spontaneous rupture of membranes: Status: Acute (2) Anemia affecting first : Status: Acute Code(s): O99.019 - Anemia complicating , unspecified trimester (3) Gestational hypertension affecting first : Status: Acute Code(s): O13.9 - Gestational [-induced] hypertension without significant proteinuria, unspecified trimester (4) Gestational diabetes mellitus (GDM) affecting first : Status: Acute Code(s): O24.419 - Gestational diabetes mellitus in , unspecified control (5) Hypothyroidism affecting , antepartum: Status: Acute Code(s): O99.280 - Endocrine, nutritional and metabolic diseases complicating , unspecified trimester; E03.9 - Hypothyroidism, unspecified (6) 39 weeks gestation of : Status: Acute Code(s): Z3A.39 - 39 weeks gestation of Additional A&P Information The patient is currently breathing through contractions, however otherwise comfortable. She is having contractions every 4 to 5 minutes. heart tones are in the mid 140s with moderate variability and good accelerations. She has a category 1 tracing. The patient has arrest of dilation as she did not reach the complete state and this is likely secondary to cephalopelvic disproportion. We will plan to proceed with a primary low transverse section secondary to this. I discussed the need for this with the patient and her and they are in agreement with the current plan of care. Due to the prolonged rupture of membranes, we will go ahead and give her an extra dose of clindamycin to decrease risk for infection. We will plan to continue this after delivery for 24 hours to decrease risk for infection as well. All questions were answered. Coding Level of Care Code Acute [facility] Disp[facility] for [facility] Diagnoses Spontaneous rupture of membranes Anemia affecting first O99.019 Gestational hypertension affecting first O13.9 Gestational diabetes mellitus (GDM) affecting first O24.419 Hypothyroidism affecting , antepartum O99.280; E03.9 39 weeks gestation of Z3A.39
--- NOTE | 2019-04-08 10:37 | P.OP_ITS ---
Operative Report Date of procedure: April 08, 2019 Pre-op Diagnosis: Term Pre-op Diagnosis: 1. Intrauterine at 39.2 weeks gestation 2. Gestational diabetes that is diet-controlled 3. Gestational hypertension 4. Hypothyroidism 5. Arrest of dilation Post-op Diagnosis: 1. Intrauterine status post primary low transverse section at 39.2 weeks gestation 2. Gestational diabetes that is diet-controlled 3. Gestational hypertension 4. Hypothyroidism 5. Arrest of dilation 6. Delivery of healthy infant male weighing 8 pounds 2 ounces with Apgars of 7 and 9 Procedure Done: Primary low transverse section Specimens removed/disposition: Placenta was discarded Surgeon: Toñito Holloway MD Anesthesia: Epidural (Spinal) Estimated blood loss (mL): 650 IV fluids (mL): 1,500 Complications: None Condition: stable Disposition: floor Brief History: Madhuri Moncada is a 24 year old at 39.2 weeks gestation by LMP consistent with early ultrasound. Her is complicated by gestational diabetes that is lifestyle controlled, gestational hypertension, hypothyroidism, anemia, anxiety. The patient was brought in for induction of labor secondary to gestational diabetes and gestational hypertension. The patient was started on Cytotec on the evening of 04/06/2019. The patient may change and ruptured at approximately 6:32 AM on 04/07/2019. The patient was 9 cm around midnight and changed to an anterior rim around 3:00 in the morning on the morning of 04/08/2019. Despite multiple position changes, she has not progressed and has not gotten to the complete stage. For this reason I was consulted for section. Procedure: After informed consent was obtained, the patient was taken to the operating room and the patient was prepped and draped in normal sterile fashion in a dorsal supine position. A spinal epidural was placed and adequate anesthesia was confirmed. At 9:21 AM on 04/08/2019, a Pfannenstiel skin incision was made and carried through to the underlying layer of fascia using a scalpel. The fascial incision was then extended laterally using curved Mayos. The fascia was then grasped with Demario clamps and the underlying rectus muscles were dissected off taking care to avoid injury to the underlying tissues. The peritoneum was entered bluntly with one digit. It was then bluntly. The bladder blade was placed and the vesicouterine peritoneum was well below the lower uterine segment of the uterus. The uterine incision was made in the lower uterine segment in a transverse fashion with the scalpel at 9:25 AM. The amniotic membrane was entered bluntly and a small amount of cloudy fluid was noted. The infant's head delivered atraumatically without difficulty at 9:25 AM on 04/08/2019. There was no nuchal cord. The mouth and nose were suctioned. The rest of the infant delivered without difficulty. The infant was crying immediately upon delivery. The cord was clamped and cut and the was handed to the awaiting pediatric nurses and Dr. Clay. The placenta was then manually expressed. The uterus was then exteriorized from the abdomen and a wet lap was used to clear the uterus of clots and debris. The bladder blade was reinserted and the uterine incision was closed using 0 chromic in a running locking fashion. A second layer of the same suture was used in the same manner. Excellent hemostasis was obtained. Next the posterior cul-de-sac was inspected and was cleared of any blood. The uterus was then placed back into the abdomen. The gutters were cleared of any further clots and debris and the uterine incision was again inspected and hemostasis was noted. The subfascial tissue was inspected for hemostasis. The peritoneum was re-approximated using 3-0 plain in a running fashion. The fascia was then re-approximated using 0 Vicryl in a running fashion. The subcutaneous tissue was inspected for hemostasis. Jovanni's fascia was then re-approximated using 2-0 plain in a running fashion. Good hemostasis was noted. The subcutaneous tissue was then re-approximated using a subcuticular stitch with 4- 0 Vicryl. Steri-Strips were then placed to re-approximate the skin layer. The patient tolerated the procedure well and was recovered in stable condition. Estimated blood loss was 650 mL. Urine in the Lopez catheter was [].
[2019-04-08] MEDS: ketorolac 30 mg/mL INJ IVP (14:30)
[2019-04-08] MEDS: docusate sodium 100 mg Capsule PO (17:09)
[2019-04-08] MEDS: clindamycin 900 MG/50 ML PREMIX 100 MG IV (17:09)
[2019-04-08] MEDS: acetaminophen 325 mg Tablet 650 MG PO (22:43)
[2019-04-08 22:46] LABS: Hematocrit 31.5 % (37.0-47.0); Mean Corpuscular HGB Conc 31.7 g/dL (30.0-36.0); Mean Corpuscular Hemoglobin 27.7 pg (28.0-34.0); Mean Corpuscular Volume 87.3 fL (81-99); Mean Platelet Volume 9.9 fL (7.4-10.4); Platelet Count 249 10^3/cmm (130-400); Red Blood Count 3.61 10^6/uL (4.1-5.3); Red Cell Distribution Width 16.7 % (12.1-15.1); White Blood Count 15.4 10^3/uL (4.0-10.0)
[2019-04-09] VITALS (9 sets, daily range): BP systolic 114–144; BP diastolic 70–92; PULSE 98–132; RESP 16–20; TEMP 36.8–37.2; O2SAT 97
[2019-04-09] MEDS: clindamycin 900 MG/50 ML PREMIX 100 MG IV ×2 (01:38→09:58)
[2019-04-09] MEDS: ketorolac 30 mg/mL INJ IVP (01:44)
[2019-04-09] MEDS: lactated ringers 1,000 ML 125 ML IV (04:30)
[2019-04-09] MEDS: prenatal vitamin Capsule 1 CAP PO (09:57)
[2019-04-09] MEDS: acetaminophen 325 mg Tablet 650 MG PO (09:57)
[2019-04-09] MEDS: docusate sodium 100 mg Capsule PO ×2 (09:58→17:29)
[2019-04-09] MEDS: ferrous sulfate EC 325 mg Tablet PO ×2 (09:58→17:29)
[2019-04-09] MEDS: lanolin oint 7 gm 1 APPLIC TOPICAL (10:01)
--- NOTE | 2019-04-09 10:51 | P.PN_ITS ---
Subjective Subjective: Interval history: Patient is doing well at this time. She is ambulating, voiding, passing gas and tolerating food by mouth. Her pain is starting to increase some. It is currently tolerable with medications. Vitals/I&O/Wt Last Vital Signs Temp 98.2 F 04/09/19 05:15 Pulse 102 H 04/09/19 05:15 Resp 16 04/09/19 05:15 BP 114/71 04/09/19 05:15 Pulse Ox 97 04/08/19 19:15 04/08/19 04/09/19 04/09/19 22:59 06:59 14:59 Intake Total 1050 / 4730.267 1050 / 1050 Output Total 600 / 2000 600 / 2600 1000 / 1000 Balance 450 / 2730.267 -600 / 2130.267 50 / 50 Physical Exam Narrative: EXAM NARRATIVE: General: Alert and oriented x3 Cardiac: Regular rate and rhythm without murmurs Lungs: Clear to auscultation bilaterally without wheezes, crackles or rhonchi Abdomen: Soft, mild to moderate tenderness diffusely. Tenderness over the uterus. Fundus is 2 cm below the umbilicus. Extremities: +1 edema in the bilateral lower extremities Urinary Catheter Management^: Lopez: Cath Placed During This Visit: yes, but has since been removed by the nurse Urethral Indwelling: Yes Reason for Continuing Indwelling Catheter: Required Immobilization for Trauma or Surgery or Anesthesia Urinary Catheter Date of Insertion: 04/07/19 Urinary Catheter Time of Insertion: 09:21 Date Urinary Catheter Removed: 04/09/19 Time Urinary Catheter Discontinued: 01:30 Data : 04/08/19 22:41 A&P Additional A&P Information Patient is doing well at this time. Her bleeding is decreasing well. She is having some pain, however it is controlled with current medications. She was encouraged to ambulate. The patient was given instructions regarding routine post care. All questions were answered. We will see how she is doing tomorrow and decide on discharge at that time. Attestations Medical Necessity Statement*: The patient continues need inpatient care as she recovers after section. Her stay will cross 2 midnights. Coding Level of Care Code Acute District Claims Manager for [facility]
[2019-04-09] MEDS: oxyCODONE-APAP 5-325 mg Tablet PO ×2 (11:27→17:28)
[2019-04-09] MEDS: alum-mag-hydroxide-sime 30 mL UDC PO (16:13)
[2019-04-10 01:00] VITALS: BP 147/94; PULSE 94; RESP 18; TEMP 36.9
[2019-04-10 01:51] VITALS: RESP 16
[2019-04-10] MEDS: oxyCODONE-APAP 5-325 mg Tablet PO ×3 (01:51→14:14)
[2019-04-10 04:00] VITALS: BP 146/90; PULSE 98; RESP 18; TEMP 37.1
[2019-04-10 08:06] LABS: Basophils % 0.2 %; Eosinophils # 0.1 10^3/uL (0.0-0.8); Eosinophils % 1.1 %; Hematocrit 29.2 % (37.0-47.0); Hemoglobin 9.3 g/dL (11.5-15.3); Lymphocytes # 2.2 10^3/uL (0.8-4.8); Lymphocytes % 19.9 %; Mean Corpuscular HGB Conc 31.8 g/dL (30.0-36.0); Mean Corpuscular Hemoglobin 27.9 pg (28.0-34.0); Mean Corpuscular Volume 87.7 fL (81-99); Mean Platelet Volume 10.4 fL (7.4-10.4); Monocytes # 0.9 10^3/uL (0.2-0.9); Monocytes % 7.9 %; Neutrophils # 7.9 10^3/uL (1.8-7.7); Neutrophils % 70.5 %; Nucleated Red Blood Cells % 0 %; Platelet Count 286 10^3/cmm (130-400); Red Blood Count 3.33 10^6/uL (4.1-5.3); Red Cell Distribution Width 16.7 % (12.1-15.1); White Blood Count 11.1 10^3/uL (4.0-10.0)
[2019-04-10 08:52] VITALS: RESP 18
[2019-04-10] MEDS: docusate sodium 100 mg Capsule PO (08:54)
[2019-04-10] MEDS: prenatal vitamin Capsule 1 CAP PO (08:54)
--- NOTE | 2019-04-10 09:44 | P.DS_ITS ---
Discharge Providers Date of Admission: 04/06/19 19:30 Date of Discharge: Date of Discharge: April 10, 2019 Attending Provider at Admission: Mahsa Clay MD Attending Provider at Discharge: Mahsa Clay MD Primary Care Provider: Mahsa Clay MD Diagnoses at Discharge Discharge Diagnosis (1) Spontaneous rupture of membranes: Status: Acute (2) Anemia affecting first : Status: Acute (3) Gestational hypertension affecting first : Status: Acute (4) Gestational diabetes mellitus (GDM) affecting first : Status: Acute (5) Hypothyroidism affecting , antepartum: Status: Acute (6) 39 weeks gestation of : Status: Acute Other Information Additional DC diagnoses/information: 1. Intrauterine status post primary low transverse section at 39.2 weeks gestation 2. Gestational diabetes that is diet-controlled 3. Gestational hypertension 4. Hypothyroidism 5. Arrest of dilation 6. Delivery of healthy male weighing 8 pounds 2 ounces with Apgars of 7 and 9 Reason for Visit Reason for Visit: Reason For Visit: iup Hospital Course Hospital Course: Madhuri Moncada is a 24 year old G1 now P1 status post primary low transverse section at 39.2 weeks gestation by LMP consistent with early ultrasound. Her was complicated by gestational diabetes that is lifestyle controlled, gestational hypertension, hypothyroidism, anemia, anxiety. The patient was brought in for induction of labor secondary to gestational diabetes and gestational hypertension. The patient was started on Cytotec on the evening of 04/06/2019. The patient may change and ruptured at approximately 6:32 AM on 04/07/2019. The patient was 9 cm around midnight and changed to an anterior rim around 3:00 in the morning on the morning of 04/08/2019. Despite multiple position changes, she has not progressed and has not gotten to the complete stage. For this reason I was consulted for section. The patient had a primary low transverse section without complication. The patient was started on routine medications afterwards as well as clindamycin for increased risk for infection secondary to prolonged rupture of membranes. The patient is done very well and is afebrile. She has some mild elevated blood pressure in the 140s today, however has not having any symptoms of preeclampsia. The patient is ambulating, voiding, passing gas and tolerating food by mouth. Her bleeding is decreasing well. Her pain is well controlled with current medications. The patient is in agreement with discharge home at this time. We will have her follow-up with me at 2 weeks or sooner if there is any concern for infection. The patient will follow-up with Dr. Clay 6 weeks as scheduled. Physical Exam Narrative: EXAM NARRATIVE: General: Alert and oriented x3 Cardiac: Regular rate and rhythm without murmurs Lungs: Clear to auscultation bilaterally without wheezes, crackles or rhonchi Abdomen: Soft, tenderness over the fundus. The fundus is firm and 3 cm below the umbilicus. Mild diffuse tenderness otherwise. Extremities: No edema Urinary Catheter Management^: Lopez: Cath Placed During This Visit: yes, but has since been removed by the nurse Urethral Indwelling: Yes Reason for Continuing Indwelling Catheter: Required Immobilization for Trauma or Surgery or Anesthesia Urinary Catheter Date of Insertion: 04/07/19 Urinary Catheter Time of Insertion: 09:21 Date Urinary Catheter Removed: 04/09/19 Time Urinary Catheter Discontinued: 01:30 Discharge Data Data Completed and Pending: Labs from last 24 hours 04/10/19 07:17 WBC 11.1 H RBC 3.33 L Hgb 9.3 L Hct 29.2 L MCV 87.7 MCH 27.9 L MCHC 31.8 RDW 16.7 H Plt Count 286 MPV 10.4 Neut % (Auto) 70.5 Lymph % (Auto) 19.9 Haskell % (Auto) 7.9 Eos % (Auto) 1.1 Baso % (Auto) 0.2 Neut # (Auto) 7.9 H Lymph # (Auto) 2.2 Haskell # (Auto) 0.9 Eos # (Auto) 0.1 Baso # (Auto) 0.0 Nucleated RBC % (a uto) 0 Nucleated RBCs # 0.0 Vitals: Last Vital Signs Temp 98.7 F 04/10/19 04:00 Pulse 98 04/10/19 04:00 Resp 18 04/10/19 08:52 BP 146/90 04/10/19 04:00 Pulse Ox 97 04/09/19 13:54 Discharge Plan Discharge Patient Disposition: Home, Self-Care Condition: Good Prescriptions: New oxycodone-acetaminophen 5-325 mg Tablet 1 tab PO Q6H PRN (Reason: Moderate To Severe Pain) Qty: 20 RF: 0 ibuprofen 800 mg Tablet 800 mg PO TID Qty: 60 RF: 0 Continued 1 tab 1 tab PO DAILY RF: 0 levothyroxine 25 mcg Tablet 25 mcg PO DAILY RF: 0 Changed ferrous sulfate 325 mg (65 mg iron) Tablet 325 mg PO BIDWM Qty: 30 RF: 0 Discharge Orders: Discharge Order (Routine); Ordered 04/10/19 Ordered By: Toñito Holloway Referrals: Mahsa Clay MD [Primary Care Provider] - 6 Weeks (at that visit we will do her post 2 hr glucose tolerance test) Toñito Holloway MD [Physician] - 2 weeks Discharge Diet: Regular Discharge Activity: Limit activity as instructed Activity Restrictions/Additional Instructions: No driving for 2 weeks. If you have any concern for infection your incision s ite, please call [facility] right away for further instruction. Nothing per vagina for 6 weeks. No bathing for 6 weeks. Okay to shower. Discharge Attestations Time Spent in Discharge Care*: greater than 30 min Specific Discharge Activities: Specific discharge activities: educating patient, educating and/or supporting family/caregiver and documenting/other paperwork Quality Metrics Clinical Quality Measures During this hospital stay, did patient experience: None Coding Level of Care Code Acute Multi Slide Machine Tender for [facility] Diagnoses Spontaneous rupture of membranes Anemia affecting first O99.019 Gestational hypertension affecting first O13.9 Gestational diabetes mellitus (GDM) affecting first O24.419 Hypothyroidism affecting , antepartum O99.280; E03.9 39 weeks gestation of Z3A.39
[2019-04-10 10:00] VITALS: BP 146/91; PULSE 98; RESP 16; TEMP 36.8
[2019-04-10 14:14] VITALS: RESP 16
== END 2019-04-10 16:30 | disposition home or self-care (01) | DRG 788 ==
PROVIDERS: Family Medicine; Admitting Provider Family Medicine; Family Provider Family Medicine; PCP Family Medicine; Visit Provider Family Medicine
PROC: 10D00Z1 Extraction of Products of Conception, Low, Open Approach (ICD-10-PCS; CPT 59514; principal; 2019-04-08 09:00)
DX: O24.420 Gestational diabetes mellitus in childbirth, diet controlled (principal); Z3A.39 39 weeks gestation of pregnancy; Z37.0 Single live birth; O13.4 Gestational [pregnancy-induced] hypertension without significant proteinuria, complicating childbirth; O99.284 Endocrine, nutritional and metabolic diseases complicating childbirth; E03.9 Hypothyroidism, unspecified; O62.1 Secondary uterine inertia; Z88.0 Allergy status to penicillin; O99.02 Anemia complicating childbirth; D64.9 Anemia, unspecified
CPT/HCPCS: 12345; 36415; 36416; 51702; 59409; 82962; 83986; 85025; 85027; 96372; 96375; J0690; J1200; J1885; J2001; J2270; J2274; J2550; J2590; J2765; J2795; J3490; J7030

== ENCOUNTER 2019-04-16 07:30 | Emergency (ER) | payer BC, MEDICAID, SELFPAY ==
[2019-04-16 07:32] VITALS: BMI 26.6
--- NOTE | 2019-04-16 07:32 | ED_ITS ---
Entered by Socorro Pedersen, acting as scribe for Layton Clark DO HPI - Female Genitourinary General: Chief complaint: Vaginal Bleeding Stated complaint: VAG BLEED Time Seen by Provider: 04/16/19 07:33 Source: patient and family Mode of arrival: ambulatory Limitations: no limitations History of Present Illness: HPI Narrative: 24 yo female presents with vaginal bleeding today. pt states she had a on Thursday last week. pt had a follow up yesterday with Dr. Holloway and everything was normal. pt states she is passing big clots and having vaginal bleeding. pt denies any other symptoms at this time. surgical site looks good, healing and no drainage. MD elicited complaint: vaginal bleeding Onset (ago): hour(s) (today) Location of symptoms: vaginal Severity: moderate Consistency: constant Vaginal bleeding: heavy, clots and # pads per day (1 today ) Exacerbating factors: none Relieving factors: none Associated symptoms: Reports no associated symptoms; Deny abdominal pain, headache(s), nausea, syncope or vaginal discharge Treatment prior to arrival: none Date of Last Menstrual Period: 07/02/18 Review of Systems Const: Denies: fever, chills, body aches, fatigue, malaise or night sweats Eyes: Denies: change in vision or blurry vision ENMT: Denies: throat pain, oral sores/lesions, dental pain, nasal discharge or nasal congestion Card: Denies: chest pain, palpitations, irregular heart rhythm, edema, syncope, shortness of breath on exertion, shortness of breath when lying down or leg pain with exertion Resp: Denies: shortness of breath, productive cough, non-productive cough or wheezing GI: Denies: abdominal pain, nausea, vomiting, vomiting blood, coffee grounds in vomit, difficulty swallowing, heartburn/indigestion, diarrhea, constipation, cramping, blood in stool or black tarry stool : Reports: vaginal bleeding; Denies: vaginal odor or vaginal discharge Musc: Denies: neck pain, back pain, extremity pain, extremity swelling, joint pain or joint swelling Skin/Breast: Denies: rash, itching or redness Neuro: Denies: headache, numbness in extremities, weakness in extremities, changes in sensation, lack of coordination, difficulty walking, frequent falls, dizziness, vertigo or confusion Psych: Denies: anxiety, depression, loss of interest, visual hallucinations, auditory hallucinations, suicidal ideation or homicidal ideation Endo: Denies: excessive urination, excessive thirst, tired all the time or cold intolerance Alex/Lymph: Denies: easy bruising, easy bleeding, petechiae, enlarged lymph nodes or tender lymph nodes [facility] ED PFSH: Medical History (Updated 04/16/19 @ 10:28 by Layton Clark DO) Anxiety and depression Hypothyroidism (acquired) Surgical History (Updated 04/16/19 @ 07:49 by Socorro Pedersen) History of delivery No pertinent past surgical history Social History Smoking and tobacco status: never smoked Second hand smoke exposure: Yes Alcohol intake: never Adopted: No Caregiver/support person: Yes Lives independently: Yes Household members: spouse Marital status: Number of children: 0 Number of grandchildren: 0 Female Reproductive History: Date of last menstrual period: 07/02/18 Physical Exam Narrative: EXAM NARRATIVE: incision healing, no drainage or redness Const: COMMON NORMALS: average body habitus, oriented x3 and alert GENERAL APPEARANCE: cooperative, comfortable, well kempt and well developed NUTRITIONAL APPEARANCE: obese ORIENTATION/CONSCIOUSNESS: Yes awake, Yes oriented to person and Yes oriented to place HENMT: COMMON NORMALS: normocephalic, head/scalp atraumatic, EAC's normal, TM's normal bilaterally, external nose normal, moist oral mucous membranes and oropharynx normal HEAD & SCALP: normocephalic and atraumatic NOSE: external nose normal EXTERNAL AUDITORY CANAL: EAC's normal TYMPANIC MEMBRANE: TM's normal bilaterally MOUTH: oral and palatal mucosa normal, lip normal and tongue normal THROAT: posterior oropharynx normal and tonsils normal Eye: COMMON NORMALS: PERRL, EOMs intact bilaterally, conjunctivae normal and no scleral icterus CONJUNCTIVA: Yes conjunctivae normal PUPIL: Yes PERRL Neck/C-Spine: COMMON NORMALS: full ROM, no lymphadenopathy, supple, no meningeal signs and thyroid normal THYROID: thyroid normal and asymmetrical Lymph: LYMPHATIC: no lymphadenopathy noted Resp: COMMON NORMALS: normal respiratory effort, no retractions, no use of accessory muscles and clear to auscultation bilaterally AUSCULTATION: clear to auscultation bilaterally Cardio: COMMON NORMALS: regular rate and regular rhythm RATE: regular rate RHYTHM: regular rhythm HEART SOUNDS: no murmurs GI: COMMON NORMALS: normal to inspection, nondistended, normoactive bowel sounds, soft to palpation and no hepatosplenomegaly PALPATION: Yes soft and Yes no hepatosplenomegaly : COMMON NORMALS: Yes no CVA tenderness BLADDER/KIDNEY EXAM: Yes no CVA tenderness OTHER: Bladder palpable to the level of the umbilicus uterus enlarged as well patient placed in dorsolithotomy position speculum introduced large amount of blood in the vaginal vault is removed with ring forceps there is scant bleeding from the cervical loss. No purulent drainage. After initial exam Pap exam was repeated there was still no significant bleeding but there had reaccumulated some blood in the vault. Cultures were done and ultrasound done and showed large amount of blood in the uterus approximately 800 mL initial ultrasound showed markedly enlarged bladder patient was able to self void and they collected approximately 7 5800 mL of urine which was estimate based on the ultrasound. Back/Pelvis: COMMON NORMALS: no CVA tenderness LUMBAR SPINE/LOWER BACK: Yes normal to inspection Extremity: COMMON NORMALS: no clubbing, cyanosis or edema, no calf tenderness and no pedal edema Neuro: COMMON NORMALS: oriented x3 SENSORIUM/ORIENTATION: Yes alert, Yes oriented to person and Yes oriented to place MENINGEAL SIGNS: Yes no meningeal signs Psych: APPEARANCE: Yes well kempt Skin: COMMON NORMALS: no rashes or lesions noted and skin turgor normal GENERAL SKIN EXAM: no rashes or lesions noted and turgor normal Course ED course: Discussed with Dr. Holloway. Will discharge patient home on doxycycline she should avoid breast-feeding for now can continue to use her Percocet she was previously prescribed. Patient was advised she probably will pass significant amount more blood before she is completed she is to return if he gets worse and she is lightheaded or dizzy otherwise follow-up Dr. Holloway in the next 2 to 3 days. Vital Signs: Vital signs: Vital Signs Temperature 99.1 F 04/16/19 07:36 Pulse Rate 120 H 04/16/19 10:43 Respiratory Rate 20 H 04/16/19 10:43 Blood Pressure 141/91 04/16/19 10:43 Pulse Oximetry 98 04/16/19 10:43 MDM - Female Lab Data: Labs: Lab Results 04/16/19 04/16/19 04/16/19 Range/Units 08:04 08:04 08:04 WBC 8.2 (4.0-10.0) 10^3/ uL RBC 3.20 L (4.1-5.3) 10^6/u L Hgb 9.1 L (11.5-15.3) g/dL Hct 28.8 L (37.0-47.0) % MCV 90.0 (81-99) fL MCH 28.4 (28.0-34.0) pg MCHC 31.6 (30.0-36.0) g/dL RDW 16.5 H (12.1-15.1) % Plt Count 459 H (130-400) 10^3/c mm MPV 9.4 (7.4-10.4) fL Neut % (Auto) 65.1 % Lymph % (Auto) 24.0 % [place] % (Auto) 8.5 % Eos % (Auto) 1.5 % Baso % (Auto) 0.4 % Neut # (Auto) 5.3 (1.8-7.7) 10^3/u L Lymph # (Auto) 2.0 (0.8-4.8) 10^3/u L [place] # (Auto) 0.7 (0.2-0.9) 10^3/u L Eos # (Auto) 0.1 (0.0-0.8) 10^3/u L Baso # (Auto) 0.0 (0.0-0.1) 10^3/u L Nucleated RBC % (a uto) 0 % Nucleated RBCs # 0.0 /100WBC PT 14.40 H (10.5-13.3) SECO NDS INR 1.08 (0.8-1.2) APTT 32.9 (23.9-36.7) SECO NDS Sodium 141 (136-145) mmol/L Potassium 3.8 (3.5-5.1) mmol/L Chloride 107 (98-107) mmol/L Carbon Dioxide 22 (22-29) mmol/L Anion Gap 15.8 (5-19) BUN 10 (6-20) mg/dL Creatinine 0.7 (0.5-0.9) mg/dL GFR Calculation 102.0 (90-130) mL/min Glucose 80 (65-115) mg/dL Calcium 9.1 (8.5-10.5) mg/dL Total Bilirubin 0.2 (0.15-1.2) mg/dL AST 12 (0-32) U/L ALT 18 (0-33) U/L Alkaline Phosphata se 163 H (35-105) IU/L Total Protein 6.1 L (6.6-8.7) g/dL Albumin 2.8 L (3.5-5.2) g/dL Globulin 3.3 (1.3-4.6) g/dL Discharge Plan Discharge Patient Disposition: Home, Self-Care Clinical Impression: Dysfunctional uterine bleeding Condition: Stable Prescriptions: New doxycycline hyclate 100 mg capsule 100 mg PO BID 10 Days Qty: 20 RF: 0 No Action 1 tab 1 tab PO DAILY RF: 0 levothyroxine 25 mcg Tablet 25 mcg PO DAILY RF: 0 ibuprofen 800 mg Tablet 800 mg PO TID Qty: 60 RF: 0 oxycodone-acetaminophen 5-325 mg Tablet 1 tab PO Q6H PRN (Reason: Moderate To Severe Pain) Qty: 20 RF: 0 ferrous sulfate 325 mg (65 mg iron) Tablet 325 mg PO BIDWM Qty: 30 RF: 0 Discharge Orders: Discharge Order (Routine); Ordered 04/16/19 Ordered By: Layton Clark Referrals: Toñito Holloway MD [Physician] - (Follow-up on heavy vaginal bleeding) Discharge Diet: Usual diet Discharge Activity: Limit activity as instructed Activity Restrictions/Additional Instructions: Do not breast-feed while on the doxycycline. Discard any breast milk expressed. Follow-up with Dr. Holloway in 2 to 3 days. If bleeding worsens significantly or you have any other new symptoms return to the emergency room Discharge Date/Time: 04/16/19 10:45 Coding Level of Care Code ED Balance Assembler for Chg Fwd Exam Comprehensive The documentation recorded by the Slava ivey Bridget Annette, accurately reflects the service I personally performed and the decisions made by Amber britton Curtis L, DO Apr 16, 2019 07:30
[2019-04-16 07:36] VITALS: BP 158/100; PULSE 103; RESP 16; TEMP 37.3; O2SAT 98
--- NOTE | 2019-04-16 08:15 | PC.NURSE ---
patient had a 1 week ago
[2019-04-16 08:27] LABS: Basophils % 0.4 %; Eosinophils # 0.1 10^3/uL (0.0-0.8); Eosinophils % 1.5 %; Hematocrit 28.8 % (37.0-47.0); Hemoglobin 9.1 g/dL (11.5-15.3); Mean Corpuscular HGB Conc 31.6 g/dL (30.0-36.0); Mean Corpuscular Hemoglobin 28.4 pg (28.0-34.0); Mean Platelet Volume 9.4 fL (7.4-10.4); Monocytes # 0.7 10^3/uL (0.2-0.9); Monocytes % 8.5 %; Neutrophils # 5.3 10^3/uL (1.8-7.7); Neutrophils % 65.1 %; Nucleated Red Blood Cells % 0 %; Platelet Count 459 10^3/cmm (130-400); Red Cell Distribution Width 16.5 % (12.1-15.1); White Blood Count 8.2 10^3/uL (4.0-10.0)
--- NOTE | 2019-04-16 08:34 | PC.NURSE ---
pelvic exam completed by doctor, large amount of blood clots removed, patient tolerated well
[2019-04-16 08:40] LABS: Alanine Aminotransferase 18 U/L (0-33); Albumin Level 2.8 g/dL (3.5-5.2); Alkaline Phosphatase 163 IU/L (35-105); Anion Gap 15.8 (5-19); Aspartate Amino Transferase 12 U/L (0-32); Blood Urea Nitrogen 10 mg/dL (6-20); Calcium 9.1 mg/dL (8.5-10.5); Carbon Dioxide 22 mmol/L (22-29); Chloride 107 mmol/L (98-107); Globulin 3.3 g/dL (1.3-4.6); Glucose 80 mg/dL (65-115); Potassium 3.8 mmol/L (3.5-5.1); Sodium 141 mmol/L (136-145); Total Bilirubin 0.2 mg/dL (0.15-1.2); Total Protein 6.1 g/dL (6.6-8.7)
[2019-04-16 08:41] LABS: INR 1.08 (0.8-1.2)
[2019-04-16 08:42] LABS: Partial Thromboplastin Time 32.9 SECONDS (23.9-36.7)
[2019-04-16] MEDS: miSOPROStol 200 mcg Tablet 800 MCG PR (09:15)
--- NOTE | 2019-04-16 09:39 | US_ITS ---
WS: [id number] PELVIC ULTRASOUND REASON FOR VISIT: pelic pain, vaginal bleeding TECHNIQUE: Grayscale and Doppler transabdominal ultrasound of the pelvis. FINDINGS: Uterus measures 15.3 cm x 10.9 cm x 10.4 cm, Sob involutional uterus is seen. There is a large clot appears to be evident in the uterus. There is no evidence of abnormalities of the cervix, right or left adnexa. US/US pelvic complete* [id number] IMPRESSION: Sub involutional changes of the uterus with a large clot . The uterus is markedly enlarged.
--- NOTE | 2019-04-16 10:30 | PC.NURSE ---
patient completed usmand the second pelvic exam comoleted with cultures, patient tolerated well
[2019-04-16 10:33] VITALS: RESP 20
[2019-04-16] MEDS: oxyCODONE-APAP 5-325 mg Tablet 2 TAB PO (10:33)
[2019-04-16 10:43] VITALS: BP 141/91; PULSE 120; RESP 20; O2SAT 98
== END 2019-04-16 10:45 | disposition home or self-care (01) ==
PROVIDERS: Emergency Provider Family Medicine; Family Provider Family Medicine; PCP Family Medicine
DX: N93.8 Other specified abnormal uterine and vaginal bleeding (principal); E03.9 Hypothyroidism, unspecified; E66.9 Obesity, unspecified; Z77.22 Contact with and (suspected) exposure to environmental tobacco smoke (acute) (chronic); Z68.26 Body mass index [BMI] 26.0-26.9, adult
CPT/HCPCS: 76856; 80053; 85025; 85610; 85730; 87070; 99281; 99283; E0352

== ENCOUNTER 2019-04-22 09:27 | Outpatient (CLI) | payer BC, MEDICAID, SELFPAY ==
--- NOTE | 2019-04-22 09:39 | US_ITS ---
WS: [id number] PELVIC ULTRASOUND REASON FOR VISIT: EVALUATE FOR RETAINED CLOT IN UTERUS TECHNIQUE: Grayscale and Doppler transabdominal ultrasound of the pelvis. FINDINGS: The uterus is found to be prominent normal for . Uterus measures 13.14 cm x 8.8 cm x 5.0 cm, right ovary measures 3.5 cm x 2.7 cm x 1.6 cm, and left o vary measures 3.6 cm x 2.5 cm x 1.5 cm. Within the uterus there is fluid density suggesting small amount of blood present but no major clots are seen and no retained secundum. US/US pelvic complete* [id number] IMPRESSION: Sub involuted uterus. There is some hemorrhage changes in the endometrial cavity but no major clots a re seen and no retained membranes seen.
== END 2019-04-22 09:28 | disposition home or self-care (01) ==
PROVIDERS: Family Provider Family Medicine; PCP Family Medicine; Visit Provider Family Medicine
DX: O72.1 Other immediate postpartum hemorrhage (principal); Z98.891 History of uterine scar from previous surgery
CPT/HCPCS: 76856

== ENCOUNTER → 2019-06-09 09:36 | Outpatient (BNVA) | payer MEDICAID, SELFPAY | PROVIDERS: Family Provider Family Medicine; PCP Family Medicine; Visit Provider Nurse Practitioner Family | DX: N32.9 Bladder disorder, unspecified (principal); N39.9 Disorder of urinary system, unspecified | CPT/HCPCS: 81001 ==

== ENCOUNTER → 2019-11-09 14:08 | Outpatient (BNVA) | payer BC, MEDICAID, SELFPAY | PROVIDERS: Family Provider Family Medicine; PCP Family Medicine; Visit Provider Urology | DX: N32.9 Bladder disorder, unspecified (principal) | CPT/HCPCS: 81001 ==

== ENCOUNTER → 2020-05-09 10:03 | Outpatient (BNVA) | payer MEDICAID, SELFPAY | PROVIDERS: Family Provider Family Medicine; PCP Family Medicine; Visit Provider Internal Medicine | DX: E03.9 Hypothyroidism, unspecified (principal); R00.2 Palpitations; R19.7 Diarrhea, unspecified; R23.2 Flushing; R63.5 Abnormal weight gain | CPT/HCPCS: 99204 ==

== ENCOUNTER 2020-05-19 18:20 | Emergency (ER) | payer MEDICAID, SELFPAY ==
[2020-05-19 18:27] VITALS: BP 148/94; PULSE 95; RESP 14; TEMP 37.2; O2SAT 99; BMI 29.5
--- NOTE | 2020-05-19 18:48 | XRR_ITS ---
PROCEDURE INFORMATION: Exam: XR Chest Exam date and time: 05/19/2020 6:50 PM Age: 25 years old Clinical indication: Dyspnea; Additional info: david SALINAS TECHNIQUE: Imaging protocol: XR of the chest Views: 1 view. COMPARISON: No relevant prior studies available. FINDINGS: Lungs: Unremarkable. No consolidation. Pleural spaces: Unremarkable. No pleural effusion. No pneumothorax. Heart/Mediastinum: Unremarkable. No cardiomegaly. Bones/joints: Unremarkable. XR/XR chest 1V portable [id number] IMPRESSION: No acute findings.
--- NOTE | 2020-05-19 18:49 | ECG_ITS ---
[facility] Test Date: 2020-05-19 Pat Name: Madhuri Moncada Department: Room: Gender: Female Guidance Secretary: : 1995 Requested By: Bryan Bae I Order Number: [id number] Michael MD: Sarah Melgoza M.D. Measurements Intervals [place] Rate: 84 P: 66 [place]: 157 QRS: 65 QRSD: 101 T: 57 QT: 356 QTc: 423 Interpretive Statements SINUS RHYTHM No previous ECG available for comparison Electronically Signed On 05-20-2020 20:21:16 CDT by Sarah Melgoza M.D. [id number]
[2020-05-19 19:27] VITALS: BP 140/89; PULSE 87; RESP 22; O2SAT 99
[2020-05-19 19:40] LABS: Basophils # 0.1 10^3/uL (0.0-0.1); Basophils % 0.5 %; Eosinophils # 0.2 10^3/uL (0.0-0.8); Eosinophils % 1.4 %; Hematocrit 43.9 % (37.0-47.0); Hemoglobin 12.9 g/dL (11.5-15.3); Lymphocytes # 3.2 10^3/uL (0.8-4.8); Lymphocytes % 31.1 %; Mean Corpuscular HGB Conc 29.4 g/dL (30.0-36.0); Mean Corpuscular Hemoglobin 27.6 pg (28.0-34.0); Mean Corpuscular Volume 93.8 fL (81-99); Mean Platelet Volume 9.2 fL (7.4-10.4); Monocytes # 0.6 10^3/uL (0.2-0.9); Monocytes % 5.8 %; Neutrophils # 6.31 10^3/uL (1.8-7.7); Nucleated Red Blood Cells % 0 %; Platelet Count 444 10^3/cmm (130-400); Red Blood Count 4.68 10^6/uL (4.1-5.3); Red Cell Distribution Width 14.3 % (12.1-15.1); White Blood Count 10.4 10^3/uL (4.0-10.0)
[2020-05-19 19:49] LABS: D Dimer 0.31 ug/mIFEU (0-0.59)
[2020-05-19 19:56] LABS: Troponin(5th) Baseline 7 ng/L (0-10)
[2020-05-19 20:00] VITALS: BP 137/90; PULSE 103; RESP 21; O2SAT 97
[2020-05-19 20:03] LABS: Alanine Aminotransferase 14 U/L (0-33); Albumin Level 4.1 g/dL (3.5-5.2); Alkaline Phosphatase 139 IU/L (35-105); Anion Gap 16.8 (5-19); Aspartate Amino Transferase 12 U/L (0-32); Blood Urea Nitrogen 11 mg/dL (6-20); Carbon Dioxide 22 mmol/L (22-29); Chloride 101 mmol/L (98-107); Glomerular Filtration Rate 101.1 mL/min (90-130); Glucose 115 mg/dL (65-115); Lipase 28 U/L (13-60); NT Pro B Type Natriuretic Pept 13 pg/mL (0-125); Osmolality Calculated 282 mOsm/kg (285-295); Potassium 3.8 mmol/L (3.5-5.1); Sodium 136 mmol/L (136-145); Total Bilirubin 0.2 mg/dL (0.15-1.2); Total Protein 7.1 g/dL (6.6-8.7)
--- NOTE | 2020-05-19 20:21 | ED_ITS ---
HPI - SOB/Dyspnea General: Chief Complaint: Shortness of Breath/Dyspnea Stated Complaint: SOB X A YEAR Time Seen by Provider: 05/19/20 18:43 Source: patient Mode of arrival: ambulatory Limitations: no limitations History of Present Illness: HPI Narrative: Patient is a 25-year-old female patient with a history of hypothyroidism who presents to the emergency department with complaints of palpitations and shortness of breath every time she bends over. Her symptoms have been ongoing for about 1 year and it happens almost every time she bends over. She is being seen by an white sugar boiler and has ordered some test but the patient states that she is yet to do the tests. She was playing with her son today and when she bent over to pick him up her symptoms returned and so she came into the emergency department for evaluation she denies any chest pain during the episodes. She says she just wants to check to make sure she is not having any cardiac issues. MD elicited complaint: shortness of breath Associated symptoms: Reports palpitations; Deny abdominal pain, chest congestion, chest pain, cough, diaphoresis, dizziness, extremity pain, fever(s), hemoptysis, lightheadedness, myalgias, nausea, orthopnea, paresthesias, polydipsia, polyuria, rash, sense of impending doom, syncope or vomiting Treatment prior to arrival: none Review of Systems General: Reports: 10 or more systems reviewed and unremarkable except in HPI and below Const: Denies: fever(s) or diaphoresis Eyes: Denies: change in vision or blurry vision ENMT: Denies: throat pain, enlarged tonsils, odynophagia, hoarseness, mouth pain or swelling of lips/tongue Card: Reports: palpitations; Denies: chest pain, lightheadedness, syncope or orthopnea Resp: Denies: hemoptysis or chest congestion GI: Denies: abdominal pain, nausea or vomiting : Denies: flank pain, difficulty voiding, dysuria, urinary frequency, urinary urgency or urinary hesitancy Musc: Denies: extremity pain Skin/Breast: Denies: rash, pruritus or erythema Neuro: Denies: dizziness Endo: Denies: polyuria or polydipsia PFSH ED PFSH: Medical History Anxiety and depression Bladder disorder, unspecified Hypothyroidism (acquired) Surgical History History of delivery No pertinent past surgical history Family History Father CAD (coronary artery disease) Grandmother Diabetes Social History Smoking and tobacco status: never smoked Second hand smoke exposure: Yes Alcohol intake: never Adopted: No Caregiver/support person: Yes Lives independently: No Household members: spouse Marital status: Number of children: 0 Number of grandchildren: 0 Current occupational status: unemployed History of recent travel: No Current gender identity: Female Female Reproductive History: Date of last menstrual period: 04/16/19 Physical Exam Const: COMMON NORMALS: no acute distress, average body habitus, patient oriented x3, no limitations, healthy appearing, alert and well nourished HENMT: COMMON NORMALS: normocephalic, atraumatic and moist oral mucous membranes HEAD & SCALP: normocephalic and atraumatic Eye: COMMON NORMALS: Equal, round and reactive pupils present, EOMs intact bilaterally, conjunctivae normal and no scleral icterus CONJUNCTIVA: Yes conjunctivae normal PUPIL: Yes Equal, round and reactive pupils present Neck/C-Spine: COMMON NORMALS: no meningeal signs and no JVD Resp: COMMON NORMALS: normal respiratory effort, No retractions, No use of accessory muscles, clear to auscultation bilaterally and percussion normal AUSCULTATION: clear to auscultation bilaterally PERCUSSION: percussion normal Cardio: COMMON NORMALS: no JVD, regular rate, regular rhythm, S1 normal heart sound present, S2 normal heart sound present, No gallops present (Cardio), No clicks present (Cardio), No murmurs present (Cardio), No rub (Cardio) and Peripheral pulses 2+ throughout RATE: regular rate RHYTHM: regular rhythm HEART SOUNDS: S1 normal heart sound present and S2 normal heart sound present PERIPHERAL PULSES: Peripheral pulses 2+ throughout GI: COMMON NORMALS: Normal to inspection, nondistended, normoactive bowel sounds present, Soft to palpation, non-tender, No hepatosplenomegaly present, no masses and no bruits PALPATION: Yes Soft to palpation and Yes No hepatosplenomegaly present Extremity: COMMON NORMALS: normal to inspection, full ROM, capillary refill normal, no calf tenderness and no pedal edema Neuro: COMMON NORMALS: patient oriented x3 SENSORIUM/ORIENTATION: Yes alert MENINGEAL SIGNS: Yes no meningeal signs Skin: COMMON NORMALS: no rashes or lesions noted, no wounds, turgor normal, no jaundice, no petechiae and no mottling GENERAL SKIN EXAM: no rashes or lesions noted and turgor normal Course Reevaluation(s): Reevaluation #1: Discussed her lab and imaging findings with her. Unremarkable. We will discharge her home with no new orders. She voiced understanding and is in agreement with the plan. She will follow up with a primary care provider and her white sugar boiler. Time: 20:21 Vital Signs: Vital signs: Vital Signs Temperature 98.5 F 05/19/20 21:37 Pulse Rate 103 H 05/19/20 21:37 Respiratory Rate 17 05/19/20 21:37 Blood Pressure 126/85 05/19/20 21:37 Pulse Oximetry 98 05/19/20 21:37 MDM - SOB/Dyspnea MDM Narrative: Medical decision making narrative: 25-year-old female patient who presents to the emergency department palpitations and shortness of breath when she bends over. Symptoms have been ongoing for a year. Initial work-up in the emergency department is unremarkable and she is discharged home with no new orders. Lab Data: Labs: Lab Results 05/19/20 05/19/20 05/19/20 Range/Units 19:15 19:15 19:15 WBC 10.4 H (4.0-10.0) 10^3/ uL RBC 4.68 (4.1-5.3) 10^6/u L Hgb 12.9 (11.5-15.3) g/dL Hct 43.9 (37.0-47.0) % MCV 93.8 (81-99) fL MCH 27.6 L (28.0-34.0) pg MCHC 29.4 L (30.0-36.0) g/dL RDW 14.3 (12.1-15.1) % Plt Count 444 H (130-400) 10^3/c mm MPV 9.2 (7.4-10.4) fL Neut % (Auto) 61.0 % Lymph % (Auto) 31.1 % [place] % (Auto) 5.8 % Eos % (Auto) 1.4 % Baso % (Auto) 0.5 % Neut # (Auto) 6.31 (1.8-7.7) 10^3/u L Lymph # (Auto) 3.2 (0.8-4.8) 10^3/u L [place] # (Auto) 0.6 (0.2-0.9) 10^3/u L Eos # (Auto) 0.2 (0.0-0.8) 10^3/u L Baso # (Auto) 0.1 (0.0-0.1) 10^3/u L Nucleated RBC % (a uto) 0 % Nucleated RBCs # 0.0 /100WBC D-Dimer 0.31 (0-0.59) ug/mIFE U Sodium 136 (136-145) mmol/L Potassium 3.8 (3.5-5.1) mmol/L Chloride 101 (98-107) mmol/L Carbon Dioxide 22 (22-29) mmol/L Anion Gap 16.8 (5-19) BUN 11 (6-20) mg/dL Creatinine 0.7 (0.5-0.9) mg/dL GFR Calculation 101.1 (90-130) mL/min Glucose 115 (65-115) mg/dL Calculated Osmolal ity 282 L (285-295) mOsm/k g Calcium 9.0 (8.5-10.5) mg/dL Total Bilirubin 0.2 (0.15-1.2) mg/dL AST 12 (0-32) U/L ALT 14 (0-33) U/L Alkaline Phosphata se 139 H (35-105) IU/L Troponin T Baselin e (0-10) ng/L NT-Pro-B Natriuret Pep 13 (0-125) pg/mL Total Protein 7.1 (6.6-8.7) g/dL Albumin 4.1 (3.5-5.2) g/dL Globulin 3.0 (1.3-4.6) g/dL Lipase 28 (13-60) U/L // Range/Units 19:15 WBC (4.0-10.0) 10^3/ uL RBC (4.1-5.3) 10^6/u L Hgb (11.5-15.3) g/dL Hct (37.0-47.0) % MCV (81-99) fL MCH (28.0-34.0) pg MCHC (30.0-36.0) g/dL RDW (12.1-15.1) % Plt Count (130-400) 10^3/c mm MPV (7.4-10.4) fL Neut % (Auto) % Lymph % (Auto) % [place] % (Auto) % Eos % (Auto) % Baso % (Auto) % Neut # (Auto) (1.8-7.7) 10^3/u L Lymph # (Auto) (0.8-4.8) 10^3/u L [place] # (Auto) (0.2-0.9) 10^3/u L Eos # (Auto) (0.0-0.8) 10^3/u L Baso # (Auto) (0.0-0.1) 10^3/u L Nucleated RBC % (a uto) % Nucleated RBCs # /100WBC D-Dimer (0-0.59) ug/mIFE U Sodium (136-145) mmol/L Potassium (3.5-5.1) mmol/L Chloride (98-107) mmol/L Carbon Dioxide (22-29) mmol/L Anion Gap (5-19) BUN (6-20) mg/dL Creatinine (0.5-0.9) mg/dL GFR Calculation (90-130) mL/min Glucose (65-115) mg/dL Calculated Osmolal ity (285-295) mOsm/k g Calcium (8.5-10.5) mg/dL Total Bilirubin (0.15-1.2) mg/dL AST (0-32) U/L ALT (0-33) U/L Alkaline Phosphata se (35-105) IU/L Troponin T Baselin e 7 (0-10) ng/L NT-Pro-B Natriuret Pep (0-125) pg/mL Total Protein (6.6-8.7) g/dL Albumin (3.5-5.2) g/dL Globulin (1.3-4.6) g/dL Lipase (13-60) U/L Imaging Data^: CXR: Attestation: I personally reviewed and interpreted this imaging study as f delma: Radiologist's impression: [address] [address] XRay Report Signed Patient: Madhuri Moncadait #: [id number] : 1995Acct#:[id number] Age/Sex: 25 / FADM Date: 05/19/20 Loc: ERRoom/Bed: Attending Dr: Ordering Provider/Ordering MD: Bryan Bae MD, [facility] [place] Date of Service: 05/19/20 Procedure(s): XR chest 1V portable [id number] Accession Number(s): [id number] Report Number: [id number] PROCEDURE INFORMATION: Exam: XR Chest Exam date and time: 05/19/2020 6:50 PM Age: 25 years old Clinical indication: Dyspnea; Additional info: RITA, david TECHNIQUE: Imaging protocol: XR of the chest Views: 1 view. COMPARISON: No relevant prior studies available. FINDINGS: Lungs: Unremarkable. No consolidation. Pleural spaces: Unremarkable. No pleural effusion. No pneumothorax. Heart/Mediastinum: Unremarkable. No cardiomegaly. Bones/joints: Unremarkable. XR/XR chest 1V portable [id number] IMPRESSION: No acute findings. Dictated By:Michel Sykes Signed By:Jose Sykes Date/Time:05/19/201956 DD/ 54 EKG Data^: EKG 1: Attestation: I personally reviewed and interpreted this EKG as follows: EKG Interpretation Date: 05/19/20 EKG interpretation time: 19:15 Prior EKG tracings: not available for review Interpretation: Normal sinus rhythm. Heart rate 84 bpm. Normal axis. No ST changes. Normal EKG. Discharge Plan Discharge Patient Disposition: Home Clinical Impression: Palpitations Condition: Stable Prescriptions: Continued fluoxetine 10 mg capsule 40 mg PO DAILY RF: 0 levothyroxine 25 mcg Tablet 25 mcg PO DAILY RF: 0 Discharge Orders: Discharge ED (Routine); Ordered 05/19/20 Ordered By: Bryan Bae Discharge Diet: Usual diet Discharge Activity: Increase activity as tolerated Patient Instructions: Palpitations (ED) Activity Restrictions/Additional Instructions: Return for any new or worsening symptoms. Follow-up with your primary care provider and white sugar boiler as scheduled. Continue your home medications and complete your tests as ordered by the white sugar boiler. Coding Level of Care Code ED Data Processing Equipment Repairer for Noris Archer
[2020-05-19 21:37] VITALS: BP 126/85; PULSE 103; RESP 17; TEMP 36.9; O2SAT 98
== END 2020-05-19 21:38 | disposition home or self-care (01) ==
PROVIDERS: Emergency Provider Family Medicine
DX: R00.2 Palpitations (principal); Z77.22 Contact with and (suspected) exposure to environmental tobacco smoke (acute) (chronic)
CPT/HCPCS: 36415; 71045; 80053; 83690; 83880; 84484; 85025; 85378; 93005; 99283

== ENCOUNTER 2020-05-28 11:06 | Outpatient (CLI) | payer MEDICAID, SELFPAY ==
[2020-05-28 12:13] LABS: Total Volume Urine 2150 ml
[2020-05-28 12:54] LABS: Creatinine 24 Hour Urine 1225.5 mg/dL (601-1689); Urine Creatinine 57 mg/dL (28-217)
[2020-05-31 18:57] LABS: Free Cortisol Urine 20.1 mcg/24 h (4.0-50.0); Total Urine 2150 mL; Urine Creatinine 1.27 g/24 h (0.50-2.15)
[2020-06-01 12:48] LABS: IGF1 LC/MS 80 ng/mL (63-373); Z Score (Male) -1.6 SD (-2.0 - +2.0)
== END 2020-05-28 11:07 | disposition home or self-care (01) ==
PROVIDERS: Visit Provider Internal Medicine
DX: R00.2 Palpitations (principal); R19.7 Diarrhea, unspecified; R23.2 Flushing; R63.5 Abnormal weight gain
CPT/HCPCS: 36415; 82384; 82530; 82570; 83497; 84305

== ENCOUNTER → 2020-09-30 17:18 | Outpatient (BNVA) | payer MEDICAID, SELFPAY | PROVIDERS: Visit Provider Nurse Practitioner | DX: N39.0 Urinary tract infection, site not specified (principal); R30.0 Dysuria | CPT/HCPCS: 81000 ==

== ENCOUNTER 2021-01-09 10:33 | Emergency (ER) | payer MEDICAID, SELFPAY ==
[2021-01-09 10:40] VITALS: BP 122/76; PULSE 108; RESP 16; TEMP 36.1; O2SAT 97; BMI 29.5
--- NOTE | 2021-01-09 10:47 | US_ITS ---
WS: [id number] EARLY OBSTETRICAL ULTRASOUND (<14 WEEKS). HISTORY: vaginal bleeding COMPARISON: None available. Transvaginal imaging demonstrates a mildly thickened endometrium. There is a tiny cystic collection t owards the fundus of the endometrium. This could very well represent early intrauterine gestational s ac. At this time there is no cardiac activity or yolk sac or crown-rump length identified. No free fluid. LEFT ovary measures 2.4 x 1.3 x 2.3 cm. RIGHT ovary measures 3.3 x 2.2 x 3.4 cm. Hemor rhagic corpus luteal cyst associated with the RIGHT ovary measures 1.4 x 1.9 x 1.8 cm. No additional adnexal mass. US/US OB transvaginal [id number] IMPRESSION: 1. Thickened endometrium with a tiny cystic collection towards the fundus of t he endometrium which may represent a very early intrauterine gestation. No tejon n-rump length or pole is identified at this time. Recommend serial beta h CG evaluations. Without identifying an intrauterine gestation ectopic is not ex cluded if there is a positive beta hCG. 2. Hemorrhagic corpus luteal cyst associated with the RIGHT ovary.
--- NOTE | 2021-01-09 11:34 | W.ED.PREGNAN ---
HPI - General: Chief complaint: Vaginal Bleeding Stated complaint: THINKS 7 WKS /BLEEDING Time Seen by Provider: 01/09/21 10:35 History of Present Illness: HPI Narrative: 25-year-old female who presents to the emergency room with complaint of vaginal bleeding. She believes she is approximately 7 weeks . She had vaginal bleeding with cramping that began yesterday and became progressively worse. She denies any dysuria urgency or frequency. Patient is G2, P1 including this current reported MD Complaint: vaginal bleeding Onset (ago): day(s) Pain Consistency: intermittent Location: pelvis Severity: mild Quality: Cramping Relieving factors: none Exacerbating factors: none Vaginal bleeding: light Date of Last Menstrual Period: 04/16/19 Patient : Yes OB History - Current : no complications OB History - Previous Pregnancies: hypertension and gestational diabetes care: followed by OB Associated symptoms: Reports abdominal pain, dysuria and vaginal bleeding; Deny malaise Review of Systems Const: Denies: fever(s), chills, body aches, change in appetite, fatigue or malaise ENMT: Denies: throat pain, ear or mastoid pain, nasal discharge or nasal congestion Card: Denies: chest pain, edema, dyspnea on exertion or orthopnea Resp: Denies: dyspnea, productive cough or non-productive cough GI: Reports: abdominal pain : Reports: dysuria Skin/Breast: Denies: rash or pruritus PFSH ED PFSH: Medical History Anxiety and depression Bladder disorder, unspecified Hypothyroidism (acquired) Surgical History History of delivery No pertinent past surgical history Family History Father CAD (coronary artery disease) Grandmother Diabetes Social History Smoking and tobacco status: never smoked Second hand smoke exposure: Yes Alcohol intake: never Adopted: No Caregiver/support person: Yes Lives independently: No Household members: spouse Marital status: Number of children: 0 Number of grandchildren: 0 Current occupational status: unemployed History of recent travel: No Current gender identity: Female Female Reproductive History: Date of last menstrual period: 04/16/19 Physical Exam Const: COMMON NORMALS: no acute distress GENERAL APPEARANCE: cooperative and comfortable ORIENTATION/CONSCIOUSNESS: Yes awake, Yes oriented to person, Yes oriented to place and Yes oriented to time HENMT: COMMON NORMALS: normocephalic, atraumatic and hearing grossly normal bilaterally HEAD & SCALP: normocephalic and atraumatic Neck/C-Spine: COMMON NORMALS: no JVD Resp: COMMON NORMALS: normal respiratory effort, No retractions, No use of accessory muscles and clear to auscultation bilaterally AUSCULTATION: clear to auscultation bilaterally Cardio: COMMON NORMALS: no JVD, regular rate, regular rhythm and No murmurs present (Cardio) RATE: regular rate RHYTHM: regular rhythm GI: COMMON NORMALS: Soft to palpation and No hepatosplenomegaly present AUSCULTATION: Yes normoactive bowel sounds PALPATION: Yes Soft to palpation, No Tenderness to palpation present (GI), No Guarding due to palpation present (GI) and Yes No hepatosplenomegaly present : SPECULUM EXAM - VAGINA: Yes vaginal bleeding OB/EXTERNAL & SPECULUM: vaginal bleeding Extremity: COMMON NORMALS: normal to inspection, capillary refill normal, no clubbing, cyanosis or edema, no calf tenderness and no pedal edema Neuro: SENSORIUM/ORIENTATION: Yes oriented to person, Yes oriented to place and Yes oriented to time Skin: COMMON NORMALS: no rashes or lesions noted GENERAL SKIN EXAM: no rashes or lesions noted Course Vital Signs: Vital signs: Vital Signs Temperature 98.0 F 01/09/21 13:55 Pulse Rate 72 01/09/21 13:55 Respiratory Rate 16 01/09/21 13:55 Blood Pressure 140/91 01/09/21 13:55 Pulse Oximetry 96 01/09/21 13:55 MDM - OB/Uterine Contractions MDM Narrative: Medical decision making narrative: Long discussion with patient suspect she has miscarried. The other possibility is that her dates are significantly off. Will go ahead and discharge her home for now the remainder of her labs are normal.In 2 to 3 days. She will need a repeat beta-hCG Lab Data: Labs: Lab Results 01/09/21 01/09/21 01/09/21 11:43 11:43 12:37 WBC 8.9 10^3/uL 10^3/ uL (4.0-10.0) RBC 4.74 10^6/uL 10^6 /uL (4.1-5.3) Hgb 13.0 g/dL g/dL (11.5-15.3) Hct 41.0 % % (37.0-47.0) MCV 86.5 fl fl (81-99) MCH 27.4 pg L pg (28.0-34.0) MCHC 31.7 g/dL g/dL (30.0-36.0) RDW 15.2 % H % (12.1-15.1) Plt Count 370 10^3/cmm 10^3 /cmm (130-400) MPV 9.6 fL fL (7.4-10.4) Neut % (Auto) 70.1 % % Lymph % (Auto) 23.0 % % [place] % (Auto) 5.3 % % Eos % (Auto) 1.0 % % Baso % (Auto) 0.3 % % Neut # (Auto) 6.26 10^3/uL 10^3 /uL (1.8-7.7) Lymph # (Auto) 2.1 10^3/uL 10^3/ uL (0.8-4.8) [place] # (Auto) 0.5 10^3/uL 10^3/ uL (0.2-0.9) Eos # (Auto) 0.1 10^3/uL 10^3/ uL (0.0-0.8) Baso # (Auto) 0.0 10^3/uL 10^3/ uL (0.0-0.1) Nucleated RBC % (a uto) 0 % % Nucleated RBCs # 0.0 /100WBC /100W BC Sodium 137 mmol/L mmol/L (136-145) Potassium 3.7 mmol/L mmol/L (3.5-5.1) Chloride 103 mmol/L mmol/L (98-107) Carbon Dioxide 22 mmol/L mmol/L (22-29) Anion Gap 15.7 (5-19) BUN 10 mg/dL mg/dL (6-20) Creatinine 0.7 mg/dL mg/dL (0.5-0.9) GFR Calculation 101.1 mL/min mL/m in (90-130) Glucose 120 mg/dL H mg/dL (65-115) Calculated Osmolal ity 284 mOsm/kg L mOs m/kg (285-295) Calcium 8.6 mg/dL mg/dL (8.5-10.5) Total Bilirubin 0.2 mg/dL mg/dL (0.15-1.2) AST 12 U/L U/L (0-32) ALT 12 U/L U/L (0-33) Alkaline Phosphata se 111 IU/L H IU/L (35-105) Total Protein 6.7 g/dL g/dL (6.6-8.7) Albumin 3.9 g/dL g/dL (3.5-5.2) Globulin 2.8 g/dL g/dL (1.3-4.6) Ser , Altagracia i-Qnt 451.80 mIU/mL mIU /mL Blood Type O Positive Rho(D) Type Positive Discharge Plan Discharge Patient Disposition: Home Clinical Impression: Threatened Condition: Stable Prescriptions: No Action fluoxetine 10 mg capsule 40 mg PO DAILY RF: 0 sulfamethoxazole-trimethoprim [Bactrim DS] 800-160 mg tablet 1 tab PO Q12H Qty: 14 RF: 0 phenazopyridine [Pyridium] 200 mg tablet 200 mg PO TID Qty: 6 RF: 0 levothyroxine 25 mcg Tablet 25 mcg PO DAILY RF: 0 Discharge Orders: Discharge ED (Routine); Ordered 01/09/21 Ordered By: Layton Clark Discharge Diet: Usual diet Discharge Activity: Resume usual activity Patient Instructions: Opioid Safety Activity Restrictions/Additional Instructions: Follow-up beta-hCG in 2 days Case management will make arrangements for you to have this testing done. Coding Level of Care Code ED Manufacturers Service Representative for Joseg Fwd Exam Comprehensive
[2021-01-09 12:00] LABS: Basophils % 0.3 %; Eosinophils # 0.1 10^3/uL (0.0-0.8); Lymphocytes # 2.1 10^3/uL (0.8-4.8); Mean Corpuscular HGB Conc 31.7 g/dL (30.0-36.0); Mean Corpuscular Hemoglobin 27.4 pg (28.0-34.0); Mean Corpuscular Volume 86.5 fl (81-99); Mean Platelet Volume 9.6 fL (7.4-10.4); Monocytes # 0.5 10^3/uL (0.2-0.9); Monocytes % 5.3 %; Neutrophils # 6.26 10^3/uL (1.8-7.7); Neutrophils % 70.1 %; Nucleated Red Blood Cells % 0 %; Platelet Count 370 10^3/cmm (130-400); Red Blood Count 4.74 10^6/uL (4.1-5.3); Red Cell Distribution Width 15.2 % (12.1-15.1); White Blood Count 8.9 10^3/uL (4.0-10.0)
[2021-01-09 12:11] VITALS: BP 140/91; PULSE 72; RESP 16; TEMP 36.7; O2SAT 99
--- NOTE | 2021-01-09 12:22 | PC.NURSE ---
Pt arrived via POV from home, pt reports she is confirmed 7 weeks , yesterday she began having mild cramping and vaginal bleeding. Pt reports she woke this morning and the bleeding andcramping has increased. Pt states this is her second , pt deneis any issues with her first in the first trimester. Pt A/O x4, vs taken, pt placed on monitor.
[2021-01-09 12:47] LABS: Alanine Aminotransferase 12 U/L (0-33); Albumin Level 3.9 g/dL (3.5-5.2); Alkaline Phosphatase 111 IU/L (35-105); Anion Gap 15.7 (5-19); Aspartate Amino Transferase 12 U/L (0-32); Blood Urea Nitrogen 10 mg/dL (6-20); Calcium 8.6 mg/dL (8.5-10.5); Carbon Dioxide 22 mmol/L (22-29); Chloride 103 mmol/L (98-107); Globulin 2.8 g/dL (1.3-4.6); Glomerular Filtration Rate 101.1 mL/min (90-130); Glucose 120 mg/dL (65-115); Osmolality Calculated 284 mOsm/kg (285-295); Potassium 3.7 mmol/L (3.5-5.1); Sodium 137 mmol/L (136-145); Total Bilirubin 0.2 mg/dL (0.15-1.2); Total Protein 6.7 g/dL (6.6-8.7)
[2021-01-09 13:55] VITALS: BP 140/91; PULSE 72; RESP 16; TEMP 36.7; O2SAT 96
--- NOTE | 2021-01-14 12:06 | DCPLANNER ---
Addendum entered by Fatuma Carlson 03/23/21 11:50: Patient had a follow up appointment scheduled with [facility] - patient did not attend appointment. Original Note: financial services manager had message to schedule a follow up appointment for patient with [facility]. financial services manager called [facility], spoke with Libby, gave clinic patients information. A follow up appointment was scheduled for Friday, January 15, 2021 at 3:[address] Echeverria. Clinic will call patient with appointment information.
== END 2021-01-09 13:58 | disposition home or self-care (01) ==
PROVIDERS: Emergency Provider Family Medicine
DX: O20.0 Threatened abortion (principal); Z3A.01 Less than 8 weeks gestation of pregnancy
CPT/HCPCS: 76817; 80053; 84702; 85025; 86900; 93976; 99283

== ENCOUNTER 2021-01-11 15:18 | Outpatient (CLI) | payer MEDICAID, SELFPAY ==
[2021-01-11 16:27] LABS: HCG Quantitative 54.02 mIU/mL
--- NOTE | 2021-01-11 18:01 | ED_ITS ---
HPI - General Adult History of Present Illness: HPI narrative: Patient was seen yesterday needed a follow-up beta-hCG she called here given it was a Thursday late afternoon. we went ahead and ordered an outpatient serum quantitative beta-hCG. I followed up on the test because I had ordered it. PFS ED PFSH: Medical History Anxiety and depression Bladder disorder, unspecified Hypothyroidism (acquired) Surgical History History of delivery No pertinent past surgical history Family History Father CAD (coronary artery disease) Grandmother Diabetes Social History Smoking and tobacco status: never smoked Second hand smoke exposure: Yes Alcohol intake: never Adopted: No Caregiver/support person: Yes Lives independently: No Household members: spouse Marital status: Number of children: 0 Number of grandchildren: 0 Current occupational status: unemployed History of recent travel: No Current gender identity: Female Female Reproductive History: Date of last menstrual period: 04/16/19 MDM - General Adult MDM Narrative: Medical decision making narrative: Beta-hCG has decreased precipitously patient is obviously miscarrying. On 01/09/2021 it was 451.8. Today it is 54 a little over 48 hours later. Nursing staff talk to the patient informed of the result. I had seen her previously we had advised her she most likely was miscarrying this beta-hCG confirms that. She is advised if she had any increased bleeding or worsening she should return to the emergency room. Due to the short timeframe from the initial ER visit we're not able to get the patient set up with a PCP for a follow-up so we took care of that today as an outpatient order. I have placed an order for case management to get her into a primary care provider. Diagnosis threatened AB. Lab Data: Labs: Lab Results 01/11/21 15:38 Ser , Altagracia i-Qnt 54.02 mIU/mL mIU/ mL Discharge Plan Discharge Patient Disposition: Home Prescriptions: No Action fluoxetine 10 mg capsule 40 mg PO DAILY RF: 0 sulfamethoxazole-trimethoprim [Bactrim DS] 800-160 mg tablet 1 tab PO Q12H Qty: 14 RF: 0 phenazopyridine [Pyridium] 200 mg tablet 200 mg PO TID Qty: 6 RF: 0 levothyroxine 25 mcg Tablet 25 mcg PO DAILY RF: 0 Discharge Date/Time: 01/11/21 15:19 Coding Level of Care Code ED Sales And Service Specialist for Noris Archer
== END 2021-01-11 15:19 | disposition home or self-care (01) ==
PROVIDERS: Visit Provider Family Medicine
DX: O20.0 Threatened abortion (principal)
CPT/HCPCS: 36415; 84702

== ENCOUNTER 2021-12-11 05:43 | Inpatient (IN) | payer OTHER, SELFPAY ==
[2021-12-11 05:46] VITALS: BP 154/99; PULSE 106; RESP 18; TEMP 37.4; O2SAT 98; BMI 29.5
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
[2021-12-11 06:13] LABS: Basophils # 0.1 10^3/uL (0.0-0.1); Basophils % 0.4 %; Eosinophils % 0.3 %; Hematocrit 42.6 % (37.0-47.0); Hemoglobin 13.9 g/dL (11.5-15.3); Lymphocytes # 2.8 10^3/uL (0.8-4.8); Lymphocytes % 19.6 %; Mean Corpuscular HGB Conc 32.6 g/dL (30.0-36.0); Mean Corpuscular Hemoglobin 27.7 pg (28.0-34.0); Monocytes # 0.9 10^3/uL (0.2-0.9); Monocytes % 6.6 %; Neutrophils # 10.26 10^3/uL (1.8-7.7); Neutrophils % 72.5 %; Nucleated Red Blood Cells % 0 %; Platelet Count 440 10^3/cmm (130-400); Red Blood Count 5.01 10^6/uL (4.1-5.3); Red Cell Distribution Width 15.6 % (12.1-15.1); White Blood Count 14.2 10^3/uL (4.0-10.0)
[2021-12-11 06:32] LABS: Alanine Aminotransferase 20 U/L (0-33); Albumin Level 4.5 g/dL (3.5-5.2); Alkaline Phosphatase 78 U/L (35-105); Anion Gap 23.3 (5-19); Aspartate Amino Transferase 21 U/L (0-32); Blood Urea Nitrogen 9 mg/dL (6-20); Calcium 9.5 mg/dL (8.5-10.5); Carbon Dioxide 17 mmol/L (22-29); Chloride 102 mmol/L (98-107); Globulin 3.2 g/dL (1.3-4.6); Glomerular Filtration Rate 66.5 mL/min (90-130); Glucose 136 mg/dL (65-115); Osmolality Calculated 289 mOsm/kg (285-295); Potassium 3.3 mmol/L (3.5-5.1); Sodium 139 mmol/L (136-145); Total Bilirubin 0.3 mg/dL (0.15-1.2); Total Protein 7.7 g/dL (6.6-8.7)
[2021-12-11 06:36] LABS: HCG, Serum Qual Negative (Negative)
[2021-12-11 06:56] LABS: Add Urine Microscopic? YES; Bilirubin Urine Neg (Negative); Blood Urine 3+ (Negative); Glucose Urine UA Norm (Normal); Ketones Urine 2+ (Negative); Leukocyte Esterase Urine 1+ (Negative); Nitrate Urine Negative (Negative); Protein Urine Neg (Negative); Specific Gravity, Urine 1.015 (1.005-1.030); Urine Appearance SL Hazy (CLEAR); Urine Color Yellow (Yellow); Urobilinogen Urine Norm (Negative); pH Urine 6 (5-7)
[2021-12-11 07:06] LABS: Add Urine Culture? No; Bacteria Urine 2+ /hpf; RBC Urine 0-4 /hpf (0-2); Squamous Epithelial Cell Urine 25-40 /hpf (0-5)
[2021-12-11] MEDS: LORazepam 2 mg Tablet PO (09:22)
[2021-12-11 15:42] VITALS: BP 149/90; PULSE 126; RESP 17; TEMP 36.8; O2SAT 100
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
[2021-12-11 19:39] VITALS: BP 161/103; PULSE 115; RESP 18; TEMP 37.4; O2SAT 96
[2021-12-11] MEDS: trazodone 50 mg Tablet PO ×2 (20:20→23:50)
[2021-12-11] MEDS: hyDROXYzine 25 mg Capsule 50 MG PO (23:50)
--- NOTE | 2021-12-12 00:32 | PC.NURSE ---
Patient was standing in corner of dayroom, would not respond to staff verbal questions.
--- NOTE | 2021-12-12 00:35 | PC.NURSE ---
[place] yelling staff responded to dayroom where Madhuri was mumbling to herself when I asked her what was wrong patient did not respond. I asked patient if she was standing there because it made her feel safe pt stated yes that it was the only place she felt safe. I asked patient why she felt unsafe she said that she did not want the devil to get her and take her to hel. I explained to the patient we did not allow the devil here and that she was safe we were here for her. Dylan Quinn also told patient the devil was not allowed here and she was safe. pt turned around appeared to be relieved asked if it was true Dylan Quinn and I both said yes. patient asked if she could hug me I told her yes. she gave me a hug then walked out of dayroom to her room now laying down.
[2021-12-12 06:00] VITALS: BP 123/86; PULSE 96; RESP 16; TEMP 36.9; O2SAT 97
--- NOTE | 2021-12-12 08:17 | PC.OT ---
OT EVALUATION ATTEMPTED. PATIENT IS SLEEPING SOUNDLY AND DOES NOT AWAKEN TO VOICE (MULTIPLE). WILL ATTEMPT AGAIN AT A LATER TIME.
[2021-12-12] MEDS: sertraline 50 mg Tablet 25 MG PO (08:34)
[2021-12-12] MEDS: divalproex ER 500 mg Tablet (24H) 1000 MG PO (08:34)
[2021-12-12] MEDS: levothyroxine 25 mcg Tablet PO (08:34)
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
[2021-12-12 14:00] VITALS: BP 124/90; PULSE 117; RESP 18; O2SAT 97
[2021-12-12] MEDS: OLANZapine 5 mg ODT PO (20:20)
[2021-12-12 21:22] VITALS: BP 128/85; PULSE 92; RESP 17; TEMP 36.8; O2SAT 100
[2021-12-12] MEDS: hyDROXYzine 25 mg Capsule 50 MG PO (22:20)
[2021-12-12] MEDS: trazodone 50 mg Tablet PO (22:37)
[2021-12-13] MEDS: levothyroxine 25 mcg Tablet PO (09:21)
[2021-12-13] MEDS: sertraline 50 mg Tablet 25 MG PO (09:21)
[2021-12-13] MEDS: divalproex ER 500 mg Tablet (24H) 1000 MG PO (11:03)
[2021-12-13 14:00] VITALS: BP 147/95; PULSE 108; RESP 18; TEMP 36.9; O2SAT 98
[2021-12-13 16:42] LABS: Amphetamines Screen Urine Negative (Negative); Barbiturates Screen Urine Negative (Negative); Benzodiazepines Screen Urine Negative (Negative); Cocaine Screen Urine Negative (Negative); Opiate Screen Urine Negative (Negative); PCP Screen Urine Negative (Negative); THC Screen Urine Positive (Negative)
--- NOTE | 2021-12-13 19:12 | W.PM.NPUPNS ---
Subjective NPU Subjective: Patient presents today reporting that she is feeling better with continued to have overt signs of magui. We discussed testing her Depakote level which returned 52. We discussed the risk benefits and alternatives of increasing the her Depakote ER to 1500 mg p.o. daily and she understood and agreed to proceed as is documented in this note. Had significant discussion with family about how disjointed her behavior is now. Mental Status Exam MSE Comments: This is an overweight, white woman with green hair and adequate grooming, and significant eye contact. No abnormal movements. Cooperative with exam in no acute distress. Speech was increased rate and normal volume. Mood described as very calm, affect is less euphoric. Thought process, organized. Thought content: patient denies suicidal or homicidal ideation, no delusions reported but erotomania noted, and denies auditory or visual hallucinations. Attention and concentration are intact and memory appeared reliable but none were formally tested. She is alert and oriented three times. Insight and judgment are impaired. Impulse control is impaired. Vitals/I&O/Wt Last Vital Signs Temp 98.4 F 12/13/21 14:00 Pulse 111 H 12/13/21 21:57 Resp 18 12/13/21 21:57 BP 141/89 12/13/21 21:57 Pulse Ox 98 12/13/21 21:57 O2 Del Method 12/13/21 14:00 Data NPU : 12/11/21 06:00 12/11/21 06:00 A&P Assessment and plan (1) Acute psychosis: (2) Anxiety and depression: (3) Hypothyroidism (acquired): (4) Palpitations: Plan This is a 26 year old white woman with a history of trauma and genetic loading for mental health, addiction and lethality issues who presents with erotomania reporting she is open to medication changes at this time. 1. Continue current medications except increase Depakote ER from 1000 to 1500 mg daily. 2. Encourage individual, group and milieu therapy 3. Continue q-15 minute check for safety 4. Recommend sober living treatment at the highest level of care to which the patient is willing to commit. Involuntary Hold Information 96 Hour Hold: 96 Hour Involuntary Admission: Yes 96 Hour Hold Ending Date: 12/17/21 96 Hour Hold Ending Time: 15:30 Attestations NPU Medical Necessity Statement*: Inpatient hospitalization is medically necessary and the clinically appropriate intervention at this time. We will monitor medications and make changes as indicated. Likely length of stay is 3-5 days. Coding Level of Care Code Acute Chemical Dependency Nurse for Chg Fwd Diagnoses Acute psychosis F23 Anxiety and depression F41.9; F32.9 Hypothyroidism (acquired) E03.9 Palpitations R00.2
[2021-12-13] MEDS: trazodone 50 mg Tablet PO ×2 (20:39→22:45)
[2021-12-13] MEDS: hyDROXYzine 25 mg Capsule 50 MG PO (20:39)
[2021-12-13 21:57] VITALS: BP 141/89; PULSE 111; RESP 18; O2SAT 98
[2021-12-13] MEDS: OLANZapine 5 mg ODT PO (22:45)
[2021-12-14 06:00] VITALS: BP 123/85; PULSE 106; RESP 16; O2SAT 97
[2021-12-14] MEDS: levothyroxine 25 mcg Tablet PO (08:37)
[2021-12-14] MEDS: sertraline 50 mg Tablet 25 MG PO (08:37)
[2021-12-14] MEDS: divalproex ER 500 mg Tablet (24H) 1500 MG PO (08:37)
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
[2021-12-14 14:00] VITALS: BP 135/80; PULSE 109; RESP 12; TEMP 37.1; O2SAT 98
[2021-12-14] MEDS: OLANZapine 5 mg ODT PO (15:32)
[2021-12-14 19:08] VITALS: BP 113/75; PULSE 81; RESP 16; TEMP 36.6; O2SAT 99
[2021-12-14] MEDS: trazodone 50 mg Tablet PO (20:09)
[2021-12-14] MEDS: hyDROXYzine 25 mg Capsule 50 MG PO (20:09)
[2021-12-15] MEDS: acetaminophen 325 mg Tablet 650 MG PO ×2 (04:51→12:03)
[2021-12-15 06:00] VITALS: BP 113/75; PULSE 81; RESP 16; TEMP 36.6; O2SAT 99; BMI 25.9
[2021-12-15 06:21] VITALS: BP 136/98; PULSE 112; RESP 18; TEMP 37.1; O2SAT 96
[2021-12-15] MEDS: levothyroxine 25 mcg Tablet PO (09:27)
[2021-12-15] MEDS: sertraline 50 mg Tablet 25 MG PO (09:27)
[2021-12-15] MEDS: divalproex ER 500 mg Tablet (24H) 1500 MG PO (09:27)
--- NOTE | 2021-12-15 09:56 | PC.NURSE ---
Pt is pacing in the hallways, ranting about the Hippocratic Oath, tearful at times and states that she is just bored. Whispering to other pt's on the unit.
[2021-12-15 11:16] LABS: Glucose Point of Care 94 mg/dL (70-110)
[2021-12-15 11:34] VITALS: BP 138/94; PULSE 110; RESP 17; TEMP 36.7; O2SAT 98
[2021-12-15 11:35] VITALS: BMI 30.1
--- NOTE | 2021-12-15 11:43 | PC.NURSE ---
Pt was encouraged to lay down and take a nap to calm down, slightly elevated BP after being on the phone with her . Nurse contacted Dr. Mera about elevated BP.
[2021-12-15] MEDS: propranolol 20 mg Tablet 10 MG PO (12:02)
[2021-12-15 14:00] VITALS: BP 144/88; PULSE 67; RESP 16; TEMP 36.7; O2SAT 97
--- NOTE | 2021-12-15 17:30 | P.NPUPN_ITS ---
Subjective NPU Subjective: Patient presents today reporting that she is starting to feel better. She continues to deny the thought patterns that lead to her being put on a 96-hour hold. Namely no erotomania; no thoughts about her doing inappropriate sexual behaviors, no thoughts about being intimately connected with anyone outside of her , or any other sexualized behaviors. We discussed having her family visit and identifying if they feel like she is getting closer to baseline. Mental Status Exam MSE Comments: This is an overweight, white woman in hospital scrubs with green hair and adequate grooming, and eye contact. No abnormal movements. Cooperative with exam in no acute distress. Speech was more normal rate and volume. Mood described as better, affect is congruent. Thought process, organized. Thought content: patient denies suicidal or homicidal ideation, no delusions reported or noted, and denies auditory or visual hallucinations. Attention and concentration are intact and memory appeared more reliable but none were formally tested. She is alert and oriented x3. Insight and judgment are improving. Impulse control is improving. Vitals/I&O/Wt Last Vital Signs Temp 98.2 F 12/15/21 21:08 Pulse 66 12/15/21 21:08 Resp 17 12/15/21 21:08 BP 117/73 12/15/21 21:08 Pulse Ox 95 12/15/21 21:08 O2 Del Method 12/15/21 21:08 Weight last 48 hrs Weight 82.1 kg Weight 79.832 kg Data NPU : 12/11/21 06:00 12/11/21 06:00 A&P Assessment and plan (1) Acute psychosis: (2) Anxiety and depression: (3) Hypothyroidism (acquired): (4) Palpitations: Plan This is a 26 year old white woman with a history of trauma and genetic loading for mental health, addiction and lethality issues who presents with erotomania reporting she is open to medication changes at this time. 1. Continue current medications except increased Depakote ER from 1000 to 1500 mg daily. 2. Encourage individual, group and milieu therapy 3. Continue q-15 minute check for safety 4. Recommend sober living treatment at the highest level of care to which the patient is willing to commit. Involuntary Hold Information 96 Hour Hold: 96 Hour Involuntary Admission: Yes 96 Hour Hold Ending Date: 12/17/21 96 Hour Hold Ending Time: 15:30 Attestations NPU Medical Necessity Statement*: Inpatient hospitalization is medically necessary and the clinically appropriate intervention at this time. We will monitor medications and make changes as indicated. Likely length of stay is 1-3 days. Coding Level of Care Code Acute Circulation Clerk for Chg Fwd Diagnoses Acute psychosis F23 Anxiety and depression F41.9; F32.9 Hypothyroidism (acquired) E03.9 Palpitations R00.2
--- NOTE | 2021-12-15 19:35 | PC.NURSE ---
Patient in hallway pacing and talking loudly to peers and staff. This publicity writer approached patient to do assessment. When asking patient how her day went patient became tearful and stated It was terrible. I'm still here and I miss my son. Patient then became anxious and started to cry and raise her voice. Attempted to redirect but patient continued to cry loudly. Offered several interventions but patient refused. This publicity writer suggested PRN for anxiety. Patient agreed to take vistaril 50mg po as ordered. Walked patient back to room and spent several minutes discussing positive coping skills and encouraged patient to speak with staff when feeling anxious or upset. Voiced understanding.
[2021-12-15] MEDS: hyDROXYzine 25 mg Capsule 50 MG PO (19:48)
--- NOTE | 2021-12-15 20:35 | PC.NURSE ---
Patient continues to be anxious and agitated. Vistaril given earlier was not effective. Redirected patient several times with no success. Patient repeatedly stating I need to get out of here. I'm not crazy and all of you are acting like I am. Everybody hates me, what's wrong with me? Patient pacing halls crying and becoming loud. PRN zyprexa po offered to patient and patient agreed to take. Given as ordered. This senior writer went to quiet area to speak with patient for several minutes til patient was able to calm down.
[2021-12-15] MEDS: OLANZapine 5 mg ODT PO (20:38)
[2021-12-15 21:08] VITALS: BP 117/73; PULSE 66; RESP 17; TEMP 36.8; O2SAT 95
[2021-12-15] MEDS: trazodone 50 mg Tablet PO (21:13)
--- NOTE | 2021-12-15 21:15 | PC.NURSE ---
Patient continues to be labile. Appears tearful one moment and then agitated shortly thereafter. This magnetic tape typewriter operator spoke with patient in her room for approximately 15 minutes til patient became calm. Patient requested medication for sleep. Trazodone given as ordered.
--- NOTE | 2021-12-15 22:00 | PC.NURSE ---
Patient resting quietly in bed with eyes closed. No signs of distress. No further behaviors this evening.
[2021-12-16] MEDS: acetaminophen 325 mg Tablet 650 MG PO ×2 (05:39→09:38)
[2021-12-16 06:00] VITALS: BP 144/93; PULSE 108; RESP 17; TEMP 36.9; O2SAT 95
[2021-12-16] MEDS: divalproex ER 500 mg Tablet (24H) 1500 MG PO (08:19)
[2021-12-16] MEDS: levothyroxine 25 mcg Tablet PO (08:20)
[2021-12-16] MEDS: sertraline 50 mg Tablet 25 MG PO (08:20)
--- NOTE | 2021-12-16 12:11 | PC.NURSE ---
WHILE HELPING ANOTHER PT IN THE WORKMAN THIS PT YELLS AT THIS NURSE STATING HER BLOOD SUGAR IS CRASHING AND SHE IS GOING TO PASS OUT. PT WAS UP PACING IN FRONT OF THE NURSES STATION. THIS NURSE DIRECTS PT TO SIT DOWN ON THE BENCH BY NURSES STATION. PT CONTINUES TO YELL AT STAFF REPEATEDLY. THIS NURSE HAS AID OBTAIN BLOOD GLUCOSE LEVEL AND VITALS. WHEN THE AID ATTEMPTS TO HELP THE PT, PT STATES NO ONE IS TAKING ANY BLOOD UNLESS IT IS THE LAB TAKING A VIAL OF BLOOD. THIS NURSE GAVE PT CONTAINER OF APPLE JUICE. PT DRANK THE JUICE. THIS NURSE AGAIN ASK PT IS STAFF COULD OBTAIN GLUCOSE LEVEL AND PT BEGAN YELLING AT STAFF AGAIN STATING NO NOT UNLESS LAB IS DOING IT. PT IS NOW PACING UP AND DOWN THE WORKMAN AND THEN WILL STAND AT THE NURSES STATION BUT DENIES NEEDING ANYTHING. ONCE THE PROVIDER IS OUT OF THE TEAM MEETING THIS NURSE WILL UPDATE DOCTOR AND ASK ABOUT LAB ORDERS.
[2021-12-16] MEDS: diphenhydrAMINE 50 mg/mL SDV 1mL IM (12:41)
[2021-12-16] MEDS: haloperidol inj 5 mg/mL INJ 1 mL IM (12:42)
[2021-12-16] MEDS: LORazepam 2 mg/mL INJ 1 mL IM (12:42)
--- NOTE | 2021-12-16 12:43 | PC.NURSE ---
PT CONTINUED PACING IN THE WORKMAN YELLING AT MULTIPLE STAFF. DR. ZHU WAS AT NURSES STATION AND WITNESSED EVENT. HALDOL, BENADRYL, AND ATIVAN WERE GIVEN.
--- NOTE | 2021-12-16 13:37 | P.NPUPN_ITS ---
Subjective NPU Subjective: Patient presents today in a significant decompensation in comparison to the past couple of days. We discussed the fact that we had considered discharging the possibility but now will need to initiate a 21-day hold tomorrow. She was aggressive, yelling at staff and other patients with random statements that made no sense talking about experiments and double-blind studies with no context. Quite energetic and hyperkinetic and requiring as needed medications. Mental Status Exam MSE Comments: This is an overweight, white woman in hospital scrubs with green hair and adequate grooming, and eye contact. No abnormal movements. Cooperative with exam in moderate to extreme distress. Speech was pressured and increased rate and volume. Mood not described, affect is manic, irritable and hyperkinetic . Thought process, disorganized. Thought content: patient did not respond to questions of lethality but was displaying verbal and posturing on physical aggression, no delusions reported or with clear grandiose and bizarre delusions noted, but she did not appear to be attending to internal stimuli. Attention and concentration are impaired and memory appeared unreliable but none were formally tested. She is alert and oriented x3. Insight and judgment are impaired. Impulse control is impaired. Vitals/I&O/Wt Last Vital Signs Temp 98.5 F 12/16/21 06:00 Pulse 108 H 12/16/21 06:00 Resp 17 12/16/21 06:00 BP 144/93 12/16/21 06:00 Pulse Ox 95 12/16/21 06:00 O2 Del Method 12/16/21 06:00 Weight last 48 hrs Weight 82.1 kg Weight 79.832 kg Data NPU : 12/11/21 06:00 12/11/21 06:00 A&P Assessment and plan (1) Acute psychosis: (2) Anxiety and depression: (3) Hypothyroidism (acquired): (4) Palpitations: Plan This is a 26 year old white woman with a history of trauma and genetic loading for mental health, addiction and lethality issues who presents with erotomania reporting she is open to medication changes at this time. 1. Continue current medications except increased Depakote ER from 1000 to 1500 mg daily. We will consider an antipsychotic in the morning 2. Encourage individual, group and milieu therapy 3. Continue q-15 minute check for safety 4. Recommend sober living treatment at the highest level of care to which the patient is willing to commit. 5. We will file for 21-day hold tomorrow. Involuntary Hold Information 96 Hour Hold: 96 Hour Involuntary Admission: Yes 96 Hour Hold Ending Date: 12/17/21 96 Hour Hold Ending Time: 15:30 Attestations NPU Medical Necessity Statement*: Inpatient hospitalization is medically necessary and the clinically appropriate intervention at this time. We will monitor med ications and make changes as indicated. Likely length of stay is 6-10 days. Coding Level of Care Code Acute Hearing Care Professional for g Fwd Diagnoses Acute psychosis F23 Anxiety and depression F41.9; F32.9 Hypothyroidism (acquired) E03.9 Palpitations R00.2
[2021-12-16 14:00] VITALS: RESP 18
[2021-12-17 06:00] VITALS: BP 148/77; PULSE 117; RESP 17; TEMP 36.4; O2SAT 98
[2021-12-17] MEDS: divalproex ER 500 mg Tablet (24H) 1500 MG PO (08:59)
[2021-12-17] MEDS: haloperidol 5 mg Tablet PO (08:59)
[2021-12-17] MEDS: diphenhydrAMINE 50 mg Capsule PO (08:59)
[2021-12-17] MEDS: sertraline 50 mg Tablet 25 MG PO (09:00)
[2021-12-17] MEDS: LORazepam 2 mg Tablet PO (09:01)
[2021-12-17] MEDS: levothyroxine 25 mcg Tablet PO (09:02)
[2021-12-17 14:00] VITALS: BP 121/81; PULSE 118; RESP 18; TEMP 36.8; O2SAT 99
[2021-12-17] MEDS: ARIPiprazole 10 mg Tablet 5 MG PO (15:32)
--- NOTE | 2021-12-17 17:45 | W.PM.NPUPNS ---
Subjective NPU Subjective: Patient presented today reporting that she is doing much better than yesterday. She explained her behavior yesterday was related to not feeling heard but she could not explain why she said the strange things she did. We discussed feeling that there was no reasoning to her statements and I reflected her magui still being unmanaged. We discussed the fact that we are filing the 21-day hold. We discussed the risks, benefits and alternatives of initiating Abilify and she understood agreed to proceed as documented in this note. Mental Status Exam MSE Comments: This is an overweight, white woman in hospital scrubs with green hair and adequate grooming, and eye contact. No abnormal movements. Cooperative with exam in no acute distress. Speech was more normal rate and volume. Mood described as better than yesterday, affect is less manic, irritable and hyperkinetic. Thought process, more organized. Thought content: patient denies suicidal or homicidal ideation, no delusions reported but with clear grandiose and bizarre delusions noted, but she did not appear to be attending to internal stimuli. Attention and concentration are improving and memory appeared unreliable but none were formally tested. She is alert and oriented x3. Insight and judgment are impaired. Impulse control is impaired. 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 1. Continue current medications except increased Depakote ER from 1000 to 1500 mg daily. Start Abilify 10 mg p.o. daily 2. Encourage individual, group and milieu therapy 3. Continue q-15 minute check for safety 4. Recommend sober living treatment at the highest level of care to which the patient is willing to commit. 5. 21-day hold paperwork filed.. Involuntary Hold Information 96 Hour Hold: 96 Hour Involuntary Admission: Yes 96 Hour Hold Ending Date: 12/17/21 96 Hour Hold Ending Time: 15:30 Attestations NPU Medical Necessity Statement*: Inpatient hospitalization is medically necessary and the clinically appropriate intervention at this time. We will monitor medications and make changes as indicated. Likely length of stay is 6-10 days. Coding Level of Care Code Acute Component Technician for [facility] Fwd Diagnoses Acute psychosis F23 Anxiety and depression F41.9; F32.9 Hypothyroidism (acquired) E03.9 Palpitations R00.2
[2021-12-17] MEDS: trazodone 50 mg Tablet PO (20:05)
[2021-12-17 21:56] VITALS: BP 138/87; PULSE 106; RESP 17; TEMP 37.1; O2SAT 97
[2021-12-18 06:00] VITALS: BP 120/69; PULSE 106; RESP 16; TEMP 36.4; O2SAT 98
[2021-12-18 08:32] VITALS: BP 148/94; PULSE 112; RESP 18; TEMP 36.4; O2SAT 100
--- NOTE | 2021-12-18 08:54 | PC.NURSE ---
PT CAME TO NURSES STATION WITH COMPLAINTS OF DIARRHEA, PT WAS ANXIOUS. A DOSE OF PRN IMODIUM HAD ALREADY BEEN GIVEN THIS AM. THIS NURSE TOOK PT TO ROOM AND OBTAINED VITAL SIGNS. AT THAT TIME PT TOLD THIS NURSE THAT BEFORE ADMISSION SHE HAD BEEN PREVIOUSLY DIAGNOSED WITH IBS. THIS NURSE LET PT KNOW THE PROVIDER WILL BE NOTIFIED.
[2021-12-18] MEDS: sertraline 50 mg Tablet 25 MG PO (09:14)
[2021-12-18] MEDS: levothyroxine 25 mcg Tablet PO (09:14)
[2021-12-18] MEDS: divalproex ER 500 mg Tablet (24H) 1500 MG PO (09:14)
[2021-12-18] MEDS: ARIPiprazole 10 mg Tablet PO (09:16)
[2021-12-18] MEDS: loperamide 2 mg Capsule PO (12:20)
--- NOTE | 2021-12-18 13:44 | P.NPUPN_ITS ---
Subjective NPU Subjective: Patient presents today reporting that she is observing things going on on the unit and identifying behaviors she sees reflect some of the behaviors she was having. We had a lengthy discussion about bipolar disorder and how it affects different people. She reports that she is doing well with the medications. She denies any problems with the increase in Depakote ER or initiation of Abilify. We discussed her 21-day hold hearing tomorrow. Mental Status Exam MSE Comments: This is an overweight, white woman in hospital scrubs with green hair and adequate grooming, and eye contact. No abnormal movements. Cooperative with exam in no acute distress. Speech was more normal rate and volume. Mood d escribed as better than yesterday, affect is less manic, irritable and hyperkinetic. Thought process, more organized. Thought content: patient denies suicidal or homicidal ideation, no delusions reported but with no obvious grandiose or bizarre delusions noted, but she did not appear to be attending to internal stimuli. Attention and concentration are improving and memory appeared unreliable but none were formally tested. She is alert and oriented x3. Insight and judgment are improving. Impulse control is improving. 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 1. Continue current medications except increased Depakote ER from 1000 to 1500 mg daily. Started Abilify 10 mg p.o. daily. 2. Encourage individual, group and milieu therapy 3. Continue q-15 minute check for safety 4. Recommend sober living treatment at the highest level of care to which the patient is willing to commit. 5. 21-day hold hearing tomorrow at 3:15 PM. Involuntary Hold Information 96 Hour Hold: 96 Hour Involuntary Admission: Yes 96 Hour Hold Ending Date: 12/17/21 96 Hour Hold Ending Time: 15:30 Attestations NPU Medical Necessity Statement*: Inpatient hospitalization is medically necessary and the clinically appropriate intervention at this time. We will monitor medications and make changes as indicated. Likely length of stay is 4-6 days. Coding Level of Care Code Acute Director Energy for [facility] Fwd Diagnoses Acute psychosis F23 Anxiety and depression F41.9; F32.9 Hypothyroidism (acquired) E03.9 Palpitations R00.2
[2021-12-18 14:00] VITALS: BP 123/83; PULSE 115; RESP 16; TEMP 536.6; TEMP 998; O2SAT 97
[2021-12-18] MEDS: trazodone 50 mg Tablet PO (20:33)
[2021-12-18 20:39] VITALS: BP 125/81; PULSE 110; RESP 16; TEMP 36.7; O2SAT 99
[2021-12-19 06:00] VITALS: BP 131/82; PULSE 116; RESP 17; TEMP 36.6; O2SAT 97
[2021-12-19] MEDS: loperamide 2 mg Capsule PO (06:50)
[2021-12-19] MEDS: acetaminophen 325 mg Tablet 650 MG PO (08:27)
[2021-12-19] MEDS: divalproex ER 500 mg Tablet (24H) 1500 MG PO (11:14)
[2021-12-19] MEDS: levothyroxine 25 mcg Tablet PO (11:15)
[2021-12-19] MEDS: ARIPiprazole 10 mg Tablet PO (11:15)
[2021-12-19] MEDS: sertraline 50 mg Tablet 25 MG PO (11:15)
--- NOTE | 2021-12-19 11:50 | P.NPUPN_ITS ---
Subjective NPU Subjective: Patient presents today reporting that she is doing fine and looking forward to the hearing. We discussed what will be said during the hearing and the process overall. She denied any significant difficulties with the change in the medications. She denies any side effects and reports that she is eating better. Mental Status Exam MSE Comments: This is an overweight, white woman in hospital scrubs with green hair and adequate grooming, and eye contact. No abnormal movements. Cooperative with exam in no acute distress. Speech was more normal rate and volume. Mood described as better, affect is less manic, irritable and hyperkinetic. Thought process, more organized. Thought content: patient denies suicidal or homicidal ideation, no delusions reported but with no obvious grandiose or bizarre delusions noted, but she did not appear to be attending to internal stimuli. Attention and concentration are improving and memory appeared unreliable but none were formally tested. She is alert and oriented x3. Insight and judgment are improving. Impulse control is improving. 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 1. Continue current medications except increased Depakote ER from 1000 to 1500 mg daily. Started Abilify 10 mg p.o. daily. 2. Encourage individual, group and milieu therapy 3. Continue q-15 minute check for safety 4. Recommend sober living treatment at the highest level of care to which the patient is willing to commit. 5. 21-day hold hearing at 3:15 PM. Involuntary Hold Information 96 Hour Hold: 96 Hour Involuntary Admission: Yes 96 Hour Hold Ending Date: 12/17/21 96 Hour Hold Ending Time: 15:30 Attestations NPU 2 Medical Necessity Statement*: Inpatient hospitalization is medically necessary and the clinically appropriate intervention at this time. We will monitor medica tions and make changes as indicated. Likely length of stay is 3-5 days. Coding Level of Care Code Acute Saw Repairer for [facility] Fwd Diagnoses Acute psychosis F23 Anxiety and depression F41.9; F32.9 Hypothyroidism (acquired) E03.9 Palpitations R00.2
[2021-12-19 14:00] VITALS: BP 134/89; PULSE 109; RESP 20; TEMP 37.1; O2SAT 96
[2021-12-19 20:07] VITALS: BP 147/93; PULSE 105; RESP 16; TEMP 36.7; O2SAT 96
[2021-12-19] MEDS: trazodone 50 mg Tablet PO (20:40)
[2021-12-20 06:00] VITALS: BP 123/74; PULSE 110; RESP 16; TEMP 36.9; O2SAT 98
[2021-12-20] MEDS: ondansetron 4 MG Tablet PO (06:29)
[2021-12-20] MEDS: hyDROXYzine 25 mg Capsule 50 MG PO ×2 (06:29→16:49)
[2021-12-20] MEDS: paliperidone ER 6 mg Tablet PO (08:19)
[2021-12-20] MEDS: levothyroxine 25 mcg Tablet PO (08:19)
[2021-12-20] MEDS: sertraline 50 mg Tablet 25 MG PO (08:20)
[2021-12-20] MEDS: divalproex ER 500 mg Tablet (24H) 1500 MG PO (08:20)
[2021-12-20] MEDS: acetaminophen 325 mg Tablet 650 MG PO (09:04)
[2021-12-20 14:00] VITALS: BP 136/89; PULSE 120; RESP 18; TEMP 37.3; O2SAT 98
--- NOTE | 2021-12-20 14:38 | P.NPUPN_ITS ---
Subjective NPU Subjective: Patient presents today reporting that she is feeling emotional and somewhat hyper advent. She reports that the switch to Invega feels better and she does not feel brain foggy. She was upset thinking about the fact that her behaviors scared her son. She is hopeful that she can get out soon and reiterated what she said in court with is that she is a very good outpatient. We agreed we would recheck her Depakote level in the morning as a trough level and start thinking about discharge soon. Mental Status Exam MSE Comments: This is an overweight, white woman in hospital scrubs with green hair and adequate grooming, and eye contact. No abnormal movements. Cooperative with exam in no acute distress. Speech was more normal rate and volume. Mood described as better, affect is less manic, irritable and hyperkinetic. Thought process, more organized. Thought content: patient denies suicidal or homicidal ideation, no delusions reported but with no obvious grandiose or bizarre delusions noted but the hyperreligious and this and feeling that she is being attacked by Satan was present, but she did not appear to be attending to internal stimuli. Attention and concentration are improving and memory appeared unreliable but none were formally tested. She is alert and oriented x3. Insight and judgment are improving. Impulse control is improving. Vitals/I&O/Wt Last Vital Signs Temp 99.2 F 12/20/21 14:00 Pulse 120 H 12/20/21 14:00 Resp 18 12/20/21 14:00 BP 136/89 12/20/21 14:00 Pulse Ox 98 12/20/21 14:00 O2 Del Method 12/20/21 14:00 Data NPU : 12/11/21 06:00 12/11/21 06:00 A&P Assessment and plan (1) Acute psychosis: (2) Anxiety and depression: (3) Hypothyroidism (acquired): (4) Palpitations: Plan This is a 26 year old white woman with a history of trauma and genetic loading f or mental health, addiction and lethality issues who presents with erotomania reporting she is open to medication changes at this time. 1. Continue current medications except increased Depakote ER from 1000 to 1500 mg daily. Discontinued Abilify and started Invega 6 mg p.o. every morning today 2. Encourage individual, group and milieu therapy 3. Continue q-15 minute check for safety 4. Recommend sober living treatment at the highest level of care to which the patient is willing to commit. 5. Based on a 21-day hold yesterday. Involuntary Hold Information 96 Hour Hold: 96 Hour Involuntary Admission: Yes 96 Hour Hold Ending Date: 12/17/21 96 Hour Hold Ending Time: 15:30 Attestations NPU Medical Necessity Statement*: Inpatient hospitalization is medically necessary and the clinically appropriate intervention at this time. We will monitor medications and make changes as indicated. Likely length of stay is 3-5 days. Coding Level of Care Code Acute Cartoonist Special Effects for [facility] Fwd Diagnoses Acute psychosis F23 Anxiety and depression F41.9; F32.9 Hypothyroidism (acquired) E03.9 Palpitations R00.2
--- NOTE | 2021-12-20 16:49 | PC.NURSE ---
Addendum entered by Karen Yun LPN 12/20/21 18:02: PRN MED EFFECTIVE NO FURTHER C/O ANXIETY Original Note: PRN VISTARIL 50 MG GIVEN PO PER PT C/O STATED ANXIETY
[2021-12-20 19:46] VITALS: BP 135/86; PULSE 101; RESP 18; O2SAT 99
[2021-12-20] MEDS: trazodone 50 mg Tablet PO (20:35)
[2021-12-21 06:00] VITALS: BP 129/91; PULSE 98; RESP 16; O2SAT 98
[2021-12-21] MEDS: levothyroxine 25 mcg Tablet PO (08:05)
[2021-12-21] MEDS: sertraline 50 mg Tablet 25 MG PO (08:05)
[2021-12-21] MEDS: paliperidone ER 6 mg Tablet PO (08:05)
[2021-12-21] MEDS: acetaminophen 325 mg Tablet 650 MG PO ×2 (09:11→14:35)
[2021-12-21 09:13] LABS: Valproic Acid Level 55.9 ug/mL (50-100)
[2021-12-21] MEDS: divalproex ER 500 mg Tablet (24H) 1500 MG PO (09:29)
[2021-12-21] MEDS: hyDROXYzine 25 mg Capsule 50 MG PO (10:38)
--- NOTE | 2021-12-21 10:38 | PC.NURSE ---
PRN VISTARIL 50 MG GIVEN PO PER PT C/O STATED ANXIETY, PLEASANT AND SMILING WITH STAFF INTERACTION
[2021-12-21 13:24] VITALS: BP 123/79; PULSE 107; RESP 21; TEMP 36.9; O2SAT 97
--- NOTE | 2021-12-21 17:07 | P.NPUPN_ITS ---
Subjective NPU Subjective: Patient presented today reporting that she is feeling very tearful and hyperreligious. She tried discussing the pain she felt as she was empathetic about the struggles of other patients. We discussed her trough Depakote level this morning which was 55.9. We agreed to continue Depakote at current dose. She denies any side effects to the Invega and we talked about the possibility of the long-acting injectable moving forward. She endorses very sad as she dealt with her feelings and continued to have oriental orthodox lives still feeling the presence of Satan trying to get to her soul. Mental Status Exam MSE Comments: This is an overweight, white woman in hospital scrubs with green hair and adequate grooming, and eye contact. No abnormal movements. Cooperative with exam in no acute distress. Speech was more normal rate and volume. Mood described as sad, affect is congruent and less manic, irritable and hyperkinetic. Thought process, more organized. Thought content: patient denies suicidal or homicidal ideation, no delusions reported but with no obvious grandiose or bizarre delusions noted but the hyperreligious delusions and a feeling that she is being attacked by Satan was present, but she did not appear to be attending to internal stimuli. Attention and concentration are improving and memory appeared unreliable but none were formally tested. She is alert and oriented x3. Insight and judgment are improving. Impulse control is improving. 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 1. Continue current medications except increased Depakote ER from 1000 to 1500 mg daily. Discontinued Abilify and started Invega 6 mg p.o. every morning today 2. Encourage individual, group and milieu therapy 3. Continue q-15 minute check for safety 4. Recommend sober living treatment at the highest level of care to which the patient is willing to commit. 5. Placed on a 21-day hold 12/19/2021. Involuntary Hold Information 96 Hour Hold: 96 Hour Involuntary Admission: Yes 96 Hour Hold Ending Date: 12/17/21 96 Hour Hold Ending Time: 15:30 Attestations NPU Medical Necessity Statement*: Inpatient hospitalization is medically necessary and the clinically appropriate intervention at this time. We will monitor medications and make changes as indicated. Likely length of stay is 3-5 days. Coding Level of Care Code Acute Photographic Lithographer for [facility] Diagnoses Acute psychosis F23 Anxiety and depression F41.9; F32.9 Hypothyroidism (acquired) E03.9 Palpitations R00.2
[2021-12-21 19:51] VITALS: BP 136/88; PULSE 83; RESP 16; TEMP 36.6; O2SAT 97
[2021-12-21] MEDS: trazodone 50 mg Tablet PO (20:48)
[2021-12-22 06:00] VITALS: BP 101/60; PULSE 95; RESP 16; TEMP 36.8; O2SAT 98
[2021-12-22] MEDS: acetaminophen 325 mg Tablet 650 MG PO ×2 (06:52→16:41)
[2021-12-22] MEDS: sertraline 50 mg Tablet 25 MG PO (08:10)
[2021-12-22] MEDS: divalproex ER 500 mg Tablet (24H) 1500 MG PO (08:10)
[2021-12-22] MEDS: paliperidone ER 6 mg Tablet PO (08:10)
[2021-12-22] MEDS: levothyroxine 25 mcg Tablet PO (08:11)
--- NOTE | 2021-12-22 09:14 | P.NPUPN_ITS ---
Subjective NPU Subjective: Patient presents today reporting that she is feeling better. However she continued to be hyperreligious but denies that feeling that Oleg is in the floors or in the building trying to get her or influence her. She endorsed feeling less pull in his direction but also noted that it was Thursday with my explaining the change, but also acknowledged that it could have been the Invega. We discussed the possibility of considering injection and she report that she was eating sleeping better. She reports that she misses her son and continues to feel very empathic about the pains of other patients. We discussed that Vijay would be here tomorrow and evaluate these possible changes. Mental Status Exam MSE Comments: This is an overweight, white woman in hospital scrubs with green hair and adequate grooming, and eye contact. No abnormal movements. Cooperative with exam in no acute distress. Speech was more normal rate and volume. Mood described as better/not as bad as yesterday, affect is congruent and less manic, irritable and hyperkinetic. Thought process, more organized. Thought content: patient denies suicidal or homicidal ideation, no delusions reported but with no obvious grandiose or bizarre delusions noted but the hyperreligious delusions and a feeling that she is being attacked by Oleg was present but diminishing, but she did not appear to be attending to internal stimuli. Attention and concentration are improving and memory appeared unreliable but none were formally tested. She is alert and oriented x3. Insight and judgment are improving. Impulse control is improving. 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 1. Continue current medications except increased Depakote ER from 1000 to 1500 mg daily. Discontinued Abilify and started Invega 6 mg p.o. every morning today. Consider long-acting injectable prior to discharge. 2. Encourage individual, group and milieu therapy 3. Continue q-15 minute check for safety 4. Recommend sober living treatment at the highest level of care to which the patient is willing to commit. 5. Placed on a 21-day hold 12/19/2021. Involuntary Hold Information 96 Hour Hold: 96 Hour Involuntary Admission: Yes 96 Hour Hold Ending Date: 12/17/21 96 Hour Hold Ending Time: 15:30 Attestations NPU Medical Necessity Statement*: Inpatient hospitalization is medically necessary and the clinically appropriate intervention at this time. We will monitor medications and make changes as indicated. Likely length of stay is 2-4 days. Coding Level of Care Code Acute Food And Beverage Attendant for [facility] Fwd Diagnoses Acute psychosis F23 Anxiety and depression F41.9; F32.9 Hypothyroidism (acquired) E03.9 Palpitations R00.2
--- NOTE | 2021-12-22 09:35 | PC.NURSE ---
Pt stated that she feels that the invega medication is really helping her, pt stated that she was on the phone with her and her son fell and bumped his head and she felt sad for him, but she said that she didn't cry and get upset, pt stated that in that situation pt would have normally freaked out. Pt said that she feels that meds are keeping her thoughts calmer.
[2021-12-22] MEDS: hyDROXYzine 25 mg Capsule 50 MG PO (09:45)
[2021-12-22] MEDS: OLANZapine 5 mg ODT PO (10:24)
[2021-12-22] MEDS: haloperidol 5 mg Tablet PO (10:43)
[2021-12-22 14:00] VITALS: BP 128/87; PULSE 99; RESP 18; TEMP 36.7; O2SAT 98
[2021-12-22] MEDS: propranolol 20 mg Tablet 10 MG PO (19:37)
[2021-12-22] MEDS: trazodone 50 mg Tablet PO (19:37)
[2021-12-22 20:51] VITALS: BP 130/80; PULSE 92; RESP 12; TEMP 36.3; O2SAT 100
[2021-12-22 22:00] VITALS: BP 130/80; PULSE 92; RESP 12; TEMP 36.3; O2SAT 100
[2021-12-23] MEDS: hyDROXYzine 25 mg Capsule 50 MG PO (01:50)
[2021-12-23 06:00] VITALS: BP 101/63; PULSE 76; RESP 15; TEMP 37; O2SAT 96
[2021-12-23] MEDS: loperamide 2 mg Capsule PO (06:57)
[2021-12-23] MEDS: divalproex ER 500 mg Tablet (24H) 1500 MG PO (08:12)
[2021-12-23] MEDS: levothyroxine 25 mcg Tablet PO (08:12)
[2021-12-23] MEDS: paliperidone ER 6 mg Tablet PO (08:12)
[2021-12-23] MEDS: sertraline 50 mg Tablet 25 MG PO (08:12)
[2021-12-23] MEDS: acetaminophen 325 mg Tablet 650 MG PO (09:21)
[2021-12-23 14:00] VITALS: BP 133/83; PULSE 96; RESP 16; TEMP 36.6; O2SAT 98
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
[2021-12-23 16:06] VITALS: BP 133/83; PULSE 96; RESP 16; TEMP 36.6; O2SAT 98
== END 2021-12-23 16:25 | disposition home or self-care (01) | DRG 885 ==
LOC: ER 08:23 → NP 12-12 06:40 → ER IP 12-12 06:40
PROVIDERS: Admitting Provider Psychiatry & Neurology Psychiatry; Emergency Provider Family Medicine; PCP Nurse Practitioner; Visit Provider Psychiatry & Neurology Psychiatry
DX: F22 Delusional disorders (principal); R45.851 Suicidal ideations; F41.8 Other specified anxiety disorders; E03.9 Hypothyroidism, unspecified; Z87.891 Personal history of nicotine dependence; R00.2 Palpitations; F12.90 Cannabis use, unspecified, uncomplicated
CPT/HCPCS: 36415; 36416; 80053; 80164; 80306; 81001; 82962; 84703; 85025; 96372; 97150; 97165; 99285; J1200; J1630; J2060; Q0162; Q0163

== ENCOUNTER → 2021-12-29 14:14 | Outpatient (BNVA) | payer MEDICAID, SELFPAY | PROVIDERS: PCP Physician Assistant; Visit Provider Registered Nurse Neonatal Intensive Care | DX: N39.0 Urinary tract infection, site not specified (principal) | CPT/HCPCS: 81000 ==

== ENCOUNTER → 2022-02-11 12:54 | Outpatient (BNVA) | payer MEDICAID, SELFPAY | PROVIDERS: PCP Physician Assistant; Visit Provider Registered Nurse Neonatal Intensive Care | DX: J02.9 Acute pharyngitis, unspecified (principal); B34.9 Viral infection, unspecified | CPT/HCPCS: 87071; 87880 ==

== ENCOUNTER → 2022-04-21 16:02 | Outpatient (BNVA) | payer MEDICAID, SELFPAY | PROVIDERS: PCP Physician Assistant; Visit Provider Nurse Practitioner | DX: J02.9 Acute pharyngitis, unspecified (principal) | CPT/HCPCS: 87071; 87880 ==

== ENCOUNTER → 2022-07-13 11:31 | Outpatient (BNVA) | payer MEDICAID, SELFPAY | PROVIDERS: PCP Physician Assistant; Visit Provider Registered Nurse Neonatal Intensive Care | DX: R30.0 Dysuria (principal) | CPT/HCPCS: 81003; 87086 ==

== ENCOUNTER → 2022-08-06 12:44 | Outpatient (BNVA) | payer MEDICAID, SELFPAY | PROVIDERS: PCP Physician Assistant; Visit Provider Nurse Practitioner Family | DX: R39.9 Unspecified symptoms and signs involving the genitourinary system (principal); N39.0 Urinary tract infection, site not specified | CPT/HCPCS: 81000 ==

== ENCOUNTER → 2023-05-14 09:23 | Outpatient (BNVA) | payer MEDICAID, SELFPAY | PROVIDERS: PCP Physician Assistant; Visit Provider Nurse Practitioner Family | DX: R30.9 Painful micturition, unspecified (principal) | CPT/HCPCS: 81000 ==

== ENCOUNTER 2023-07-19 16:46 | Emergency (ER) | payer MEDICAID, SELFPAY ==
[2023-07-19 16:49] VITALS: BP 124/88; PULSE 72; RESP 16; TEMP 36.4; O2SAT 100
--- NOTE | 2023-07-19 16:59 | ED_ITS ---
HPI - Nausea/Vomiting/Diarrhea 2 General: Chief complaint: Nausea/Vomiting/Diarrhea Stated complaint: vomiting Time Seen by Provider: 07/19/23 16:58 History of Present Illness: 28-year-old female comes in today with n ausea and vomiting and hematuria. Patient reports pain came all of a sudden starting yesterday. Patient reports some abdominal pain radiating from bilateral back and also noticing blood in urine. Last menstrual cycle was July 02. Patient has a history of bipolar disorder, anxiety, and migraine headaches. Patient does get recurrent urinary tract infections. Patient reports history of . Patient reports that she has her gallbladder and her appendix still. 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 No pertinent past surgical history Family History Father CAD (coronary artery disease) Grandmother Diabetes Social History Smoking and tobacco/nicotine status: former use of tobacco/nicotine (Stopped smoking marijuana couple years ago) Second hand smoke exposure: Yes Alcohol intake: never Substance/Drug Use: never Adopted: No Caregiver/support person: Yes Lives independently: No Household members: spouse Marital status: Number of children: 0 Number of grandchildren: 0 Current occupational status: unemployed Current gender identity: Female Female Reproductive History: Date of last menstrual period: 07/02/23 Physical Exam 2 Const: COMMON NORMALS: alert HENMT: COMMON NORMALS: normocephalic HEAD & SCALP: normocephalic Neck/C-Spine: COMMON NORMALS: full ROM Resp: COMMON NORMALS: normal respiratory effort and clear to auscultation bilaterally AUSCULTATION: clear to auscultation bilaterally Cardio: COMMON NORMALS: regular rate and regular rhythm RATE: regular rate RHYTHM: regular rhythm GI: COMMON NORMALS: Soft to palpation and non-tender PALPATION: Yes Soft to palpation : COMMON NORMALS: Yes no CVA tenderness BLADDER/KIDNEY EXAM: Yes no CVA tenderness Back/Pelvis: COMMON NORMALS: no CVA tenderness Extremity: COMMON NORMALS: normal to inspection Neuro: SENSORIUM/ORIENTATION: Yes alert Skin: COMMON NORMALS: turgor normal GENERAL SKIN EXAM: turgor normal Course 2 Vital Signs: Vital signs: Vital Signs Temperature 97.5 F L 07/19/23 16:49 Pulse Rate 69 07/19/23 19:03 Respiratory Rate 18 07/19/23 19:03 Blood Pressure 122/82 07/19/23 17:34 Pulse Oximetry 98 07/19/23 19:03 Oxygen Delivery Me thod Room Air 07/19/23 19:03 MDM - Nausea/Vomiting/Diarrhea Medical Decision Making Patient comes in with some abdominal pain states that as lower left abdomen started yesterday immediately seem to improved after seeing her doctor. Diagnosed her for urinary tract infection. Today patient had recurrence of the pain with nausea and vomiting into getting episodes and then pain in her lower abdomen. Patient appears nontoxic. Patient appears in mild to moderate pain at this time. Vital signs are normal. Patient reported no fever. Differential diagnosis includes renal colic, ureteral stone, pyelonephritis, cystitis, ovarian cyst, appendicitis, diverticulitis, constipation. CBC had mild elevation of white count of 15,000, CMP noted creatinine 1.0, urine has a white blood cells and red blood cells. CT noted a nonobstructing 2 mm stone in the distal left ureter no hydro ureter or hydronephrosis was noted. Patient also had a couple of nodules in the lung bases with recommendation for follow-up with CT chest. Reviewed exam with patient recommended treatment for urinary stone. Recommend continuation of Macrobid as ordered. Patient was given some Toradol tablets and Zofran for her pain and discomfort. Reviewed need for CT scan at 3 to 6 months and then a repeat at 18 to 24 months. Patient will follow-up with primary care regarding this recommendation. Lab Data 07/19/23 17:30 07/19/23 17:30 Radiology Impressions Abdomen/Pelvis CT 07/19/23 17:05 IMPRESSION: 1. Question 2 mm nonobstructing stone in the distal left ureter on (series 6, image 81) and (series 3, image 170). No upstream hydroureter or hydronephrosis. 2. There is an 11 mm pulmonary nodule in the left lung base (series 3, image 20). There is a juxtapleural pulmonary nodule in the left lung base measuring 10 mm (series 3, image 26). For patients at low risk (minimal or absent history of smoking and of other known risk factors), recommend CT Chest at 3-6 months, then consider CT Chest at 18-24 months. For patients at high risk (history of smoking or of other known risk factors), recommend CT Chest at 3-6 months, then CT Chest at 18-24 months. (Reference: Abeba) References: Abeba Andrade et al. Guidelines for Management of Incidental Pulmonary Nodules Detected on CT Images: From the Fleischner Society 2017. Radiology. 2017;284(1):228-243. Laboratory Results WBC 15.48 10^3/uL (3.29-11.43) H 07/19/23 17:30 RBC 4.42 10^6/uL (3.85-5.65) 07/19/23 17:30 Hgb 13.60 g/dL (11.27-16.99) 07/19/23 17:30 Hct 41.0 % (36-47) 07/19/23 17:30 MCV 92.8 fl (85-98) 07/19/23 17:30 MCH 30.8 pg (27-33) 07/19/23 17:30 MCHC 33.2 g/dL (30-55) 07/19/23 17:30 RDW 13.7 % (12.1-15.1) 07/19/23 17:30 Plt Count 418 10^3/cmm (157-399) H 07/19/23 17:30 MPV 9.6 fL (7.4-10.4) 07/19/23 17:30 Neut % (Auto) 69.5 % 07/19/23 17:30 Lymph % (Auto) 21.6 % 07/19/23 17:30 [place] % (Auto) 6.4 % 07/19/23 17:30 Eos % (Auto) 1.6 % 07/19/23 17:30 Baso % (Auto) 0.5 % 07/19/23 17:30 Neut # (Auto) 10.78 10^3/uL (1.8-7.7) H 07/19/23 17:30 Lymph # (Auto) 3.3 10^3/uL (0.8-4.8) 07/19/23 17:30 [place] # (Auto) 1.0 10^3/uL (0.2-0.9) H 07/19/23 17:30 Eos # (Auto) 0.2 10^3/uL (0.0-0.8) 07/19/23 17:30 Baso # (Auto) 0.1 10^3/uL (0.0-0.1) 07/19/23 17:30 Nucleated RBC % (auto) 0 % 07/19/23 17:30 Nucleated RBCs # 0.0 /100WBC 07/19/23 17:30 Sodium 140 mmol/L (136-145) 07/19/23 17:30 Potassium 4.3 mmol/L (3.5-5.1) 07/19/23 17:30 Chloride 103 mmol/L (98-107) 07/19/23 17:30 Carbon Dioxide 25 mmol/L (22-29) 07/19/23 17:30 Anion Gap 16.3 (5-19) 07/19/23 17:30 BUN 8 mg/dL (6-20) 07/19/23 17:30 Creatinine 1.0 mg/dL (0.5-0.9) H 07/19/23 17:30 GFR Calculation 65.6 mL/min (90-130) L 07/19/23 17:30 Glucose 110 mg/dL (65-115) 07/19/23 17:30 Calculated Osmolality 289 mOsm/kg (285-295) 07/19/23 17:30 Lactic Acid 1.2 mmol/L (0.5-2.2) 07/19/23 17:30 Calcium 8.5 mg/dL (8.5-10.5) 07/19/23 17:30 Total Bilirubin 0.2 mg/dL (0.15-1.2) 07/19/23 17:30 AST 14 U/L (0-32) 07/19/23 17:30 ALT 11 U/L (0-33) 07/19/23 17:30 Alkaline Phosphatase 103 U/L (35-105) 07/19/23 17:30 Total Protein 8.1 g/dL (6.6-8.7) 07/19/23 17:30 Albumin 4.0 g/dL (3.5-5.2) 07/19/23 17:30 Globulin 4.1 g/dL (1.3-4.6) 07/19/23 17:30 Lipase 18 U/L (13-60) 07/19/23 17:30 HCG, Qual Negative (Negative) 07/19/23 17:30 Urine Color [place] (Yellow) A 07/19/23 19:00 Urine Appearance Hazy (CLEAR) A 07/19/23 19:00 Urine pH 6 (5-7) 07/19/23 19:00 Ur Specific [place] 1.020 (1.005-1.030) 07/19/23 19:00 Urine Protein 3+ (Negative) H 07/19/23 19:00 Urine Glucose (UA) Norm (Normal) 07/19/23 19:00 Urine Ketones 1+ (Negative) H 07/19/23 19:00 Urine Blood 3+ (Negative) H 07/19/23 19:00 Urine Nitrate Positive (Negative) H 07/19/23 19:00 Urine Bilirubin 2+ (Negative) H 07/19/23 19:00 Urine Urobilinogen 8 mg/dL (Negative) H 07/19/23 19:00 Ur Leukocyte Esterase 1+ (Negative) H 07/19/23 19:00 Urine RBC 0-4 /hpf (0-2) H 07/19/23 19:00 Urine WBC 25-40 /hpf (0-5) H 07/19/23 19:00 Ur Squamous Epith Cells 5-10 /hpf (0-5) H 07/19/23 19:00 Amorphous Sediment Trace /hpf 07/19/23 19:00 Urine Bacteria 2+ /hpf (NONE) H 07/19/23 19:00 Urine Mucus 1+ /hpf 07/19/23 19:00 All radiology interpretation(s) finalized by discharge Discharge Plan Discharge Patient Disposition: Home Clinical Impression: Left ureteral calculus, Incidental lung nodule, greater than or equal to 8mm Condition: Stable Prescriptions: New ketorolac 10 mg tablet 10 mg PO Q6H PRN (Reason: pain) 1 Days Qty: 10 0RF ondansetron 4 mg tablet,disintegrating 4 mg PO Q8H PRN (Reason: nausea and vomiting) Qty: 10 0RF No Action Vraylar 3 mg capsule 3 mg PO DAILY bupropion HCl [Wellbutrin XL] 150 mg tablet extended release 24 hr 150 mg PO QAM nitrofurantoin monohyd/m-cryst [Macrobid] 100 mg capsule 100 mg PO Q12H 5 Days Qty: 10 0RF Rx Instructions: must administer with a meal/food levothyroxine 25 mcg Tablet 25 mcg PO DAILY divalproex 500 mg Tablet Extended Release 24 Hr 1,500 mg PO DAILY 30 Days Qty: 90 1RF Discharge Orders: Discharge ED (Routine); Ordered 07/19/23 Ordered By: Reymundo Wiggins Referrals: Manisha Del Toro PA [Primary Care Provider] - Discharge Diet: Usual diet Discharge Activity: Increase activity as tolerated Patient Instructions: Kidney Stones (ED) Activity Restrictions/Additional Instructions: Use medication as needed for pain and nausea. Continue with antibiotic as prescribed. Drink plenty of water and fluids. Follow-up with urologist for further evaluation and treatment. Case management was requested to assist with this appointment. Return to ER for worsening symptoms such as uncontrolled pain, fever greater than 100.4, or new concerns. Coding Level of Care Code ED Ophthalmic Photographer for Noris Archer
--- NOTE | 2023-07-19 17:05 | CTR_ITS ---
PROCEDURE INFORMATION: Exam: CT Abdomen And Pelvis Without Contrast Exam date and time: 07/19/2023 6:15 PM Age: 28 years old Clinical indication: Abdominal pain; Prior surgery; Surgery date: 6+ months; Surgery type: Csection; Patient HX: Bilateral flank pain with hematuria; Additional info: Hematuria, stephanie flank pain TECHNIQUE: Imaging protocol: Computed tomography of the abdomen and pelvis without contrast. Radiation optimization: All CT scans at this facility use at least one of these dose optimization techniques: automated exposure control; mA and/or kV adjustment per patient size (includes targeted exams where dose is matched to clinical indication); or iterative reconstruction. COMPARISON: US OB transvaginal [id number] 01/09/2021 11:17 AM RADIATION DOSE METRICS: Total DLP (mGy-cm): 565.22 FINDINGS: Lungs: There is an 11 mm pulmonary nodule in the left lung base (series 3, image 20). There is a juxtapleural pulmonary nodule in the left lung base measuring 10 mm (series 3, image 26). Liver: Normal. No mass. Gallbladder and bile ducts: Normal. No calcified stones. No ductal dilation. Pancreas: Normal. No ductal dilation. Spleen: Normal. No splenomegaly. Adrenal glands: Normal. No mass. Kidneys and ureters: Question 2 mm nonobstructing stone in the distal left ureter on (series 6, image 81) and (series 3, image 170). Stomach and bowel: Unremarkable. No obstruction. No mucosal thickening. Appendix: No evidence of appendicitis. Intraperitoneal space: Unremarkable. No free air. No significant fluid collection. Vasculature: Unremarkable. No abdominal aortic aneurysm. Lymph nodes: Unremarkable. No enlarged lymph nodes. Urinary bladder: Unremarkable as visualized. Reproductive: Unremarkable as visualized. Bones/joints: Unremarkable. No acute fracture. Soft tissues: Unremarkable. CT/CT kidney stone [id number] IMPRESSION: 1. Question 2 mm nonobstructing stone in the distal left ureter on (series 6, image 81) and (series 3, image 170). No upstream hydroureter or hydronephrosis. 2. There is an 11 mm pulmonary nodule in the left lung base (series 3, image 20). There is a juxtapleural pulmonary nodule in the left lung base measuring 10 mm (series 3, image 26). For patients at low risk (minimal or absent history of smoking and of other known risk factors), recommend CT Chest at 3-6 months, then consider CT Chest at 18-24 months. For patients at high risk (history of smoking or of other known risk factors), recommend CT Chest at 3-6 months, then CT Chest at 18-24 months. (Reference: Abeba) References: Abeba Andrade, et al. Guidelines for Management of Incidental Pulmonary Nodules Detected on CT Images: From the Fleischner Society 2017. Radiology. 2017;284(1):228-243.
[2023-07-19] MEDS: diphenhydrAMINE 50 mg/mL SDV 1mL 12.5 MG IVP (17:24)
[2023-07-19] MEDS: metoclopramide 5 mg/mL SDV 2 mL 10 MG IVP (17:24)
[2023-07-19] MEDS: sodium chloride 0.9% 1,000 ML 999 ML IV (17:25)
[2023-07-19] MEDS: ketorolac 30 mg/mL INJ 15 MG IVP (17:25)
[2023-07-19 17:34] VITALS: BP 122/82; RESP 18; O2SAT 99
[2023-07-19 17:40] LABS: Basophils # 0.1 10^3/uL (0.0-0.1); Basophils % 0.5 %; Eosinophils # 0.2 10^3/uL (0.0-0.8); Eosinophils % 1.6 %; Lymphocytes # 3.3 10^3/uL (0.8-4.8); Lymphocytes % 21.6 %; Mean Corpuscular HGB Conc 33.2 g/dL (30-55); Mean Corpuscular Hemoglobin 30.8 pg (27-33); Mean Corpuscular Volume 92.8 fl (85-98); Mean Platelet Volume 9.6 fL (7.4-10.4); Monocytes % 6.4 %; Neutrophils # 10.78 10^3/uL (1.8-7.7); Neutrophils % 69.5 %; Nucleated Red Blood Cells % 0 %; Platelet Count 418 10^3/cmm (157-399); Red Blood Count 4.42 10^6/uL (3.85-5.65); Red Cell Distribution Width 13.7 % (12.1-15.1); White Blood Count 15.48 10^3/uL (3.29-11.43)
[2023-07-19 18:04] LABS: Alanine Aminotransferase 11 U/L (0-33); Alkaline Phosphatase 103 U/L (35-105); Anion Gap 16.3 (5-19); Aspartate Amino Transferase 14 U/L (0-32); Blood Urea Nitrogen 8 mg/dL (6-20); Calcium 8.5 mg/dL (8.5-10.5); Carbon Dioxide 25 mmol/L (22-29); Chloride 103 mmol/L (98-107); Globulin 4.1 g/dL (1.3-4.6); Glomerular Filtration Rate 65.6 mL/min (90-130); Glucose 110 mg/dL (65-115); HCG, Serum Qual Negative (Negative); Lipase 18 U/L (13-60); Osmolality Calculated 289 mOsm/kg (285-295); Potassium 4.3 mmol/L (3.5-5.1); Sodium 140 mmol/L (136-145); Total Bilirubin 0.2 mg/dL (0.15-1.2); Total Protein 8.1 g/dL (6.6-8.7)
[2023-07-19 18:05] LABS: Creatinine Clr Calc Pharmacy 92.4688; Lactic Sepsis W/Reflex 1.2 mmol/L (0.5-2.2)
[2023-07-19 18:09] VITALS: PULSE 69; O2SAT 99
[2023-07-19 19:03] VITALS: PULSE 69; RESP 18; O2SAT 98
[2023-07-19 19:35] LABS: Add Urine Microscopic? YES; Bilirubin Urine 2+ (Negative); Blood Urine 3+ (Negative); Glucose Urine UA Norm (Normal); Ketones Urine 1+ (Negative); Leukocyte Esterase Urine 1+ (Negative); Nitrate Urine Positive (Negative); Protein Urine 3+ (Negative); Urine Appearance Hazy (CLEAR); Urine Color Orange (Yellow); Urobilinogen Urine 8 mg/dL (Negative); pH Urine 6 (5-7)
[2023-07-19 19:36] LABS: Add Urine Culture? Yes; Amorphous Sediment Urine TRACE /hpf; Bacteria Urine 2+ /hpf; Mucus Urine 1+ /hpf; RBC Urine 0-4 /hpf (0-2); WBC Urine 25-40 /hpf (0-5)
[2023-07-19 20:07] VITALS: PULSE 80; RESP 16; O2SAT 99
[2023-07-19 20:25] VITALS: BP 111/69; PULSE 87; RESP 15; O2SAT 99
--- NOTE | 2023-07-20 10:06 | DCPLANNER ---
er f/u referral to urology sent to [facility] per patient
== END 2023-07-19 20:26 | disposition home or self-care (01) ==
PROVIDERS: Emergency Provider Nurse Practitioner Family; PCP Physician Assistant
DX: N20.1 Calculus of ureter (principal); R91.1 Solitary pulmonary nodule; Z87.891 Personal history of nicotine dependence
CPT/HCPCS: 74176; 80053; 81001; 83605; 83690; 84703; 85025; 87086; 96374; 96375; 99285; J1200; J1885; J2765; J7030

== ENCOUNTER 2023-08-24 16:02 | Outpatient (CLI) | payer MEDICAID, SELFPAY ==
--- NOTE | 2023-08-24 16:08 | CTR_ITS ---
PROCEDURE INFORMATION: Exam: CT Chest With Contrast; Diagnostic Exam date and time: 08/24/2023 4:19 PM Age: 28 years old Clinical indication: Pulmonary nodules seen on prior abdominal CT.; Abnormal radiologic exam of lung or chest; Additional info: Abnormal CT TECHNIQUE: Imaging protocol: Diagnostic computed tomography of the chest with contrast. Radiation optimization: All CT scans at this facility use at least one of these dose optimization techniques: automated exposure control; mA and/or kV adjustment per patient size (includes targeted exams where dose is matched to clinical indication); or iterative reconstruction. Contrast material: OMNI 350; Contrast volume: 100 ml; Contrast route: INTRAVENOUS (IV); COMPARISON: CR XR chest 2V* [id number] 02/14/2021 11:30 AM RADIATION DOSE METRICS: Total DLP (mGy-cm): 273.14 FINDINGS: There are a few mildly prominent left hilar lymph nodes. No axillary or mediastinal adenopathy is seen. There are no pleural or pericardial effusions. No osseous abnormality of acute significance. Two nodular opacities in the left lower lobe are again evident. The more inferior and lateral of these has significantly decreased in size since recent CT exam. The other has decreased minimally in size since the prior study. CT/CT chest w con* [id number] IMPRESSION: 1. Left lower lobe nodular opacities, one of which has definitely decreased in size in the other may have decreased minimally in size since 07/19/2023. Given these features, and patient's age, benign etiologies highly likely. No acute infiltrates are seen. 2. Mildly prominent left hilar lymph nodes, most likely reactive. A follow-up study in 4-6 months could provide reassurance, if desired.
[2023-08-24] MEDS: iohexol 350 mg/mL 500 mL Btl (per mL) IV (16:27)
== END 2023-08-24 16:03 | disposition home or self-care (01) ==
LOC: RAD 16:02
PROVIDERS: PCP Physician Assistant; Visit Provider Physician Assistant
DX: R91.8 Other nonspecific abnormal finding of lung field (principal)
CPT/HCPCS: 71260; Q9967

== ENCOUNTER → 2023-11-10 11:24 | Outpatient (BNVA) | payer OTHER, SELFPAY | PROVIDERS: PCP Physician Assistant; Visit Provider Nurse Practitioner Psychiatric/Mental Health | DX: Z79.899 Other long term (current) drug therapy (principal) | CPT/HCPCS: 80053; 80061; 80164; 83036 ==

== ENCOUNTER 2023-11-17 12:12 | Emergency (ER) | payer MEDICAID, SELFPAY ==
[2023-11-17 12:20] VITALS: BP 144/80; PULSE 55; RESP 16; TEMP 36.9; O2SAT 99; BMI 24.3
--- NOTE | 2023-11-17 12:27 | US_ITS ---
WS: [id number] US transvaginal [id number] HISTORY: rlq pain. ovarian source? COMPARISON: None available. Uterus: 7.8 cm x 4.0 cm x 3.4 cm. Normal size anteverted uterus. No fibroid or mass. scar noted along the lower uterine segment. Endometrium: 0.4 cm. Normal. Right ovary: 2.6 cm x 1.8 cm x 2.3 cm. Normal size and vascularity, no cystic or solid masses. Small follicles. Left ovary: 2.6 cm x 2.6 cm x 1.6 cm. Normal size and vascularity, no cystic or solid masses. Small f ollicles. No free fluid in the cul-de-sac. US/US transvaginal [id number] IMPRESSION: 1. No intrauterine gestation. 2. Ovaries are normal size with follicles. No free fluid.
--- NOTE | 2023-11-17 12:57 | PC.NURSE ---
PT taken to [facility] @[id number]
--- NOTE | 2023-11-17 13:08 | ED_ITS ---
HPI - Abdominal Pain 2 General: Chief Complaint: Abdominal Pain Stated Complaint: ft rt abd pain Time Seen by Provider: 11/17/23 12:17 History of Present Illness: 28-year-old female with a history of PTS D, bipolar disorder and hypothyroidism who presents emergency room with right lower quadrant abdominal pain. She has had a in the past but no other surgical history. Started about 2 hours ago. Sharp in her right lower quadrant. She has had some nausea and vomiting associated with pain. No dysuria. No fevers. No chest pain. No shortness of breath. No altered mental status. Related Data Home Medications Medication Instructions Recorded Confirmed levothyroxine 25 mcg tablet 25 mcg PO DAILY 03/22/19 11/17/23 divalproex 500 mg tablet,delayed 1,000 mg PO DAILY@1900 11/17/23 11/17/23 release fluphenazine HCl 1 mg tablet 1 mg PO QAM 11/17/23 11/17/23 folic acid 1 mg tablet 4 mg PO DAILY 11/17/23 11/17/23 nitrofurantoin 100 mg PO Q12H 11/17/23 11/17/23 monohydrate/macrocrystals 100 mg capsule norgestimate 0.25 mg-ethinyl 1 tab PO DAILY 11/17/23 11/17/23 estradiol 35 mcg tablet (Sprintec (28)) propranolol 10 mg tablet 10 mg PO QAM 11/17/23 11/17/23 sumatriptan succinate 50 mg tablet See Rx Instructions .Route .COMPLEX 11/17/23 11/17/23 Previous Rx's Medication Instructions Recorded ondansetron 4 mg disintegrating 4 mg PO Q8H PRN nausea and 07/19/23 tablet vomiting #10 tabs ciprofloxacin HCl 500 mg tablet 500 mg PO BID 7 days #14 tabs 11/17/23 diclofenac sodium 50 mg 50 mg PO BID PRN pain #14 tabs 11/17/23 tablet,delayed release metronidazole 500 mg tablet 500 mg PO Q8H 7 days #21 tabs 11/17/23 prednisone 20 mg tablet 60 mg (3 x 20 mg) PO DAILY 5 days 11/17/23 #15 tabs Allergies Allergy/AdvReac Type Severity Reaction Status Date / Time amoxicillin Allergy ALGY-Rash Verified 11/10/23 09:45 Review of Systems 2 Narrative: Constitutional symptoms: Negative except as documented in HPI. Skin symptoms: Negative except as documented in HPI. Eye symptoms: Negative except as documented in HPI. ENMT symptoms: Negative except as documented in HPI. Respiratory symptoms: Negative except as documented in HPI. Cardiovascular symptoms: Negative except as documented in HPI. Gastrointestinal symptoms: Negative except as documented in HPI. Genitourinary symptoms: Negative except as documented in HPI. Musculoskeletal symptoms: Negative except as documented in HPI. Neurologic symptoms: Negative except as documented in HPI. Psychiatric symptoms: Negative except as documented in HPI. Endocrine symptoms: Negative except as documented in HPI. PFSH ED 2 PFSH: Medical History (Updated 11/17/23 @ 14:50 by Sandra Villasenor MD) Cannabis dependence with current use Post-traumatic stress disorder, chronic Bipolar I disorder, most recent episode mixed, severe with psychotic features Psychiatric care Hypothyroidism (acquired) Surgical History History of delivery No pertinent past surgical history Family History Father CAD (coronary artery disease) Grandmother Diabetes Social History Smoking and tobacco/nicotine status: former use of tobacco/nicotine (Stopped smoking marijuana couple years ago) Second hand smoke exposure: Yes Alcohol intake: never Substance/Drug Use: never Adopted: No Caregiver/support person: Yes Lives independently: No Household members: spouse Marital status: Number of children: 0 Number of grandchildren: 0 Current occupational status: unemployed Current gender identity: Female Physical Exam 2 Narrative: EXAM NARRATIVE: General: Alert, no acute distress. Skin: Warm, dry. Head: Normocephalic, atraumatic. Neck: Supple, trachea midline. Eye: Extraocular movements are intact. Ears, nose, mouth and throat: mucosa moist. Cardiovascular: Regular, Normal peripheral perfusion. Respiratory: Lungs are clear to auscultation, respirations are non-labored, breath sounds are equal, Symmetrical chest wall expansion. Gastrointestinal: Soft, moderate right lower quadrant tenderness to pain, Non distended Musculoskeletal: Normal ROM, no deformity. Neurological: Alert and oriented, No focal neurological deficit observed. Psychiatric: Cooperative, appropriate mood & affect. Course 2 Vital Signs: Vital signs: Vital Signs Temperature 98.5 F 09/17/24 12:20 Pulse Rate 101 H 11/17/23 14:46 Respiratory Rate 16 11/17/23 14:46 Blood Pressure 143/81 11/17/23 14:46 Pulse Oximetry 95 11/17/23 14:46 Oxygen Delivery Me thod Room Air 11/17/23 14:46 MDM - Abdominal Pain Medical Decision Making Medical decision making: Differential diagnosis for this patient with right lower quadrant abdominal pain including but not limited to and based on the above HPI, review of systems and physical exam: Ureterolithiasis. Urinary tract infection. Appendicitis. colitis. small bowel obstruction. Crohn's flare. Pancreatitis. Cholelithiasis or cholecystitis. Hepatitis. Diverticulitis. Constipation. ovarian cyst. ovarian torsion Workup: Orders were placed to evaluate differential diagnosis based on the above differential, HPI and exam: Lab Review: Laboratory results were reviewed and interpreted by myself the emergency room physician. Patient does have a significant white count of 18,000. Renal function is normal. She still has bit of a urinary tract infection. CT had some concern for autoimmune colitis such as Crohn's, however her CRP is completely negative which would go against this. I am going to place her on steroids and antibiotics. She is on Macrobid for UTI so I am changing her to Cipro and Flagyl to cover both for urinary tract infection and the possible colitis. Transvaginal ultrasound. Ovaries are normal in size with follicles. No free fluid. This was reviewed and interpreted by myself the emergency room physician. I also reviewed the radiology report. CT of the abdomen pelvis with contrast: There is some concern for colitis in the right lower quadrant. I discussed these findings with the radiologist on-call. I reviewed the patient's medical record Reexamination: Patient remained stable. No increased work of breathing. No altered mental status. No focal motor deficits. Patient says her pain is quite a bit improved. Assessment and plan: Colitis UTI Right lower quadrant abdominal pain ?IV steroid and IV Toradol in the emergency room - Discharged home - Discussed findings and plan with patient. Answered any questions. - All laboratory values were reviewed and interpreted personally by myself, the ER physician - All imaging was reviewed and interpreted personally by myself, the ER physician. - Evaluation and treatment of this problem were appropriate in the emergency setting Lab Data 11/17/23 13:20 11/17/23 13:20 Labs/Radiology: Radiology Impressions Transvaginal US 11/17/23 12:27 IMPRESSION: 1. No intrauterine gestation. 2. Ovaries are normal size with follicles. No free fluid. Abdomen/Pelvis CT 11/17/23 13:19 IMPRESSION: 1. Mild tethering of the mesentery in the mid LEFT abdomen with adjacent small bowel wall thickening and hyperemia. No free air is identified. There is an additional abnormal loop of small bowel in the RIGHT adnexa. There is overall stranding within the fat associated with both of these abnormal loops of bowel. Differential includes ischemia/adhesions and acute exacerbation of inflammatory bowel disease such as Crohn's. 2. Normal appendix. 3. Stable LEFT lower lobe pulmonary nodules. Laboratory Results WBC 18.31 10^3/uL (3.29-11.43) H 11/17/23 13:20 RBC 4.36 10^6/uL (3.85-5.65) 11/17/23 13:20 Hgb 13.30 g/dL (11.27-16.99) 11/17/23 13:20 Hct 40.0 % (36-47) 11/17/23 13:20 MCV 91.7 fl (85-98) 11/17/23 13:20 MCH 30.5 pg (27-33) 11/17/23 13:20 MCHC 33.3 g/dL (30-55) 11/17/23 13:20 RDW 12.6 % (12.1-15.1) 11/17/23 13:20 Plt Count 379 10^3/cmm (157-399) 11/17/23 13:20 MPV 9.8 fL (7.4-10.4) 11/17/23 13:20 Neut % (Auto) 79.9 % 11/17/23 13:20 Lymph % (Auto) 14.7 % 11/17/23 13:20 Norman % (Auto) 4.2 % 11/17/23 13:20 Eos % (Auto) 0.5 % 11/17/23 13:20 Baso % (Auto) 0.3 % 11/17/23 13:20 Neut # (Auto) 14.63 10^3/uL (1.8-7.7) H 11/17/23 13:20 Lymph # (Auto) 2.7 10^3/uL (0.8-4.8) 11/17/23 13:20 Norman # (Auto) 0.8 10^3/uL (0.2-0.9) 11/17/23 13:20 Eos # (Auto) 0.1 10^3/uL (0.0-0.8) 11/17/23 13:20 Baso # (Auto) 0.1 10^3/uL (0.0-0.1) 11/17/23 13:20 Nucleated RBC % (auto) 0 % 11/17/23 13:20 Nucleated RBCs # 0.0 /100WBC 11/17/23 13:20 Sodium 142 mmol/L (136-145) 11/17/23 13:20 Potassium 4.0 mmol/L (3.5-5.1) 11/17/23 13:20 Chloride 107 mmol/L (98-107) 11/17/23 13:20 Carbon Dioxide 23 mmol/L (22-29) 11/17/23 13:20 Anion Gap 16.0 (5-19) 11/17/23 13:20 BUN 8 mg/dL (6-20) 11/17/23 13:20 Creatinine 0.9 mg/dL (0.5-0.9) 11/17/23 13:20 GFR Calculation 74.0 mL/min (90-130) L 11/17/23 13:20 Glucose 78 mg/dL (65-115) 11/17/23 13:20 Calculated Osmolality 291 mOsm/kg (285-295) 11/17/23 13:20 Calcium 8.9 mg/dL (8.5-10.5) 11/17/23 13:20 Total Bilirubin 0.5 mg/dL (0.15-1.2) 11/17/23 13:20 AST 11 U/L (0-32) 11/17/23 13:20 ALT 11 U/L (0-33) 11/17/23 13:20 Alkaline Phosphatase 62 U/L (35-105) 11/17/23 13:20 C-Reactive Protein 3.0 mg/L (0.0-4.9) 11/17/23 13:20 Total Protein 7.0 g/dL (6.6-8.7) 11/17/23 13:20 Albumin 4.0 g/dL (3.5-5.2) 11/17/23 13:20 Globulin 3.0 g/dL (1.3-4.6) 11/17/23 13:20 Lipase 21 U/L (13-60) 11/17/23 13:20 HCG, Qual Negative (Negative) 11/17/23 13:20 Urine Color Yellow (Yellow) 11/17/23 12:35 Urine Appearance Cloudy (CLEAR) A 11/17/23 12:35 Urine pH 6 (5-7) 11/17/23 12:35 Ur Specific [place] 1.020 (1.005-1.030) 11/17/23 12:35 Urine Protein 1+ (Negative) H 11/17/23 12:35 Urine Glucose (UA) Norm (Normal) 11/17/23 12:35 Urine Ketones 1+ (Negative) H 11/17/23 12:35 Urine Blood 3+ (Negative) H 11/17/23 12:35 Urine Nitrate Negative (Negative) 11/17/23 12:35 Urine Bilirubin Neg (Negative) 11/17/23 12:35 Urine Urobilinogen Norm mg/dL (Negative) 11/17/23 12:35 Ur Leukocyte Esterase 1+ (Negative) H 11/17/23 12:35 Urine RBC 5-10 /hpf (0-2) H 11/17/23 12:35 Urine WBC 5-10 /hpf (0-5) H 11/17/23 12:35 Ur Squamous Epith Cells 10-15 /hpf (0-5) H 11/17/23 12:35 Amorphous Sediment Not Reportable 11/17/23 12:35 Urine Bacteria 1+ /hpf (NONE) H 11/17/23 12:35 Urine Mucus 2+ /hpf 11/17/23 12:35 Valproic Acid 38.9 ug/mL (50-100) L 11/17/23 13:20 All radiology interpretation(s) finalized by discharge Discharge Plan Discharge Patient Disposition: Home Clinical Impression: Colitis, Urinary tract infection Condition: Stable Prescriptions: New prednisone 20 mg tablet 60 mg PO DAILY 5 Days Qty: 15 0RF metronidazole 500 mg tablet 500 mg PO Q8H 7 Days Qty: 21 0RF ciprofloxacin HCl 500 mg tablet 500 mg PO BID 7 Days Qty: 14 0RF diclofenac sodium 50 mg tablet,delayed release (DR/EC) 50 mg PO BID PRN (Reason: pain) Qty: 14 0RF No Action levothyroxine 25 mcg Tablet 25 mcg PO DAILY ondansetron 4 mg tablet,disintegrating 4 mg PO Q8H PRN (Reason: nausea and vomiting) Qty: 10 0RF Sprintec (28) 0.25-35 mg-mcg tablet 1 tab PO DAILY sumatriptan succinate 50 mg tablet See Rx Instructions .ROUTE .COMPLEX Rx Instructions: TAKE ONE TABLET BY MOUTH AT ONSET OF MIGRAINE, MAY REPEAT IN 1 TO 2 HOURS, MAX OF 2 TABS IN 24 HOURS. divalproex 500 mg tablet,delayed release (DR/EC) 1,000 mg PO DAILY@1900 folic acid 1 mg Tablet 4 mg PO DAILY nitrofurantoin monohyd/m-cryst 100 mg capsule 100 mg PO Q12H propranolol 10 mg tablet 10 mg PO QAM fluphenazine HCl 1 mg tablet 1 mg PO QAM Discharge Orders: Discharge ED (Routine); Ordered 11/17/23 Ordered By: Sandra Villasenor Referrals: Manisha DelT oro PA [Primary Care Provider] - Discharge Diet: Usual diet Discharge Activity: Increase activity as tolerated Patient Instructions: Colitis (ED) Activity Restrictions/Additional Instructions: Stop Macrobid and start Cipro and Flagyl along with steroids that were written. Thank you for choosing [facility] for your healthcare needs today. Please realize this is an emergency room and that we are providing you with a medical screening exam and this may not be complete and all inclusive of all the testing and or work up that you may need to determine your ailment or severity of your illness. You have been screened and evaluated and felt safe for discharge. Health conditions do change or evolve sometimes and as such it is important that you follow up with your Primary Doctor to be re checked, 3-5 days is a general good time frame for follow up. 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
[2023-11-17 13:09] LABS: Add Urine Microscopic? YES; Bilirubin Urine Neg (Negative); Blood Urine 3+ (Negative); Glucose Urine UA Norm (Normal); Ketones Urine 1+ (Negative); Leukocyte Esterase Urine 1+ (Negative); Nitrate Urine Negative (Negative); Protein Urine 1+ (Negative); Urine Appearance Cloudy (CLEAR); Urine Color Yellow (Yellow); Urobilinogen Urine Norm (Negative); pH Urine 6 (5-7)
--- NOTE | 2023-11-17 13:09 | PC.NURSE ---
Pt arrived back from [facility] at 1310
[2023-11-17 13:11] VITALS: BP 142/85; PULSE 83; RESP 16; O2SAT 96
[2023-11-17 13:12] LABS: Add Urine Culture? Yes; Bacteria Urine 1+ /hpf; Mucus Urine 2+ /hpf
--- NOTE | 2023-11-17 13:19 | CT_ITS ---
WS: [id number] CT ABDOMEN AND PELVIS WITH CONTRAST HISTORY: Abdominal pain TECHNIQUE: Imaging performed of the abdomen and pelvis with IV contrast. Single phase imaging of the abdomen. Coronal and sagittal reformats are submitted. All CT scans at [facility] use at ty st one of these dose optimization techniques: automated exposure control; mA and/or kV adjustment per patient size (includes targeted exams where dose is matched to clinical indication); or iterative re construction. IV CONTRAST: Omnipaque 350; 100 mL IV. Oral contrast: No DLP: 532.93 mGy.cm COMPARISON: 07/19/2023 Lower thorax: Stable 7 mm pulmonary nodule at the LEFT lung base since 07/19/2023. There is a smaller nodule more lateral at the LEFT lung base. Due to the patient's age this is probably benign. Heart is normal size. No hiatal hernia. Liver/biliary system: Normal size with no intrahepatic dilatation. Gallbladder: Normal. No gallstones or wall thickening. No pericholecystic fluid. Pancreas: Normal size pancreas and pancreatic duct. No adjacent inflammation. Spleen: Normal size spleen. No mass or infarct. Adrenal glands: Normal. Right kidney: Normal. Left kidney: Normal. Aorta: Normal. Lymphadenopathy: None. Free fluid: None. GI tract: Nondistended stomach. There is a focal tethering in the central mesentery with a few abnorm al small bowel loops. There is small bowel mucosal thickening with stricture in the central abdomen a ssociated with the central tethering. Edema noted extending through the omental fat at this location. There is additional loss of the normal configuration of the small bowel in the RIGHT lower quadrant with mild wall thickening and fat stranding. There does not appear to be an obstruction. Mild promine nce of the vasa recta. The appendix is normal. No colon abnormality. Abdominal wall: Unremarkable abdominal wall. No hernia. Pelvis: No free fluid. The uterus is midline. Both ovaries are identified. Ovary was normal size on r ecent transvaginal imaging with normal vascularity. Bones: Unremarkable. CT/CT abdomen pelvis w con* [id number] IMPRESSION: 1. Mild tethering of the mesentery in the mid LEFT abdomen with adjacent small bowel wall thickening and hyperemia. No free air is identified. There is an ad ditional abnormal loop of small bowel in the RIGHT adnexa. There is overall str anding within the fat associated with both of these abnormal loops of bowel. Di fferential includes ischemia/adhesions and acute exacerbation of inflammatory b owel disease such as Crohn's. 2. Normal appendix. 3. Stable LEFT lower lobe pulmonary nodules.
[2023-11-17 13:43] LABS: Basophils # 0.1 10^3/uL (0.0-0.1); Basophils % 0.3 %; Eosinophils # 0.1 10^3/uL (0.0-0.8); Eosinophils % 0.5 %; Lymphocytes # 2.7 10^3/uL (0.8-4.8); Lymphocytes % 14.7 %; Mean Corpuscular HGB Conc 33.3 g/dL (30-55); Mean Corpuscular Hemoglobin 30.5 pg (27-33); Mean Corpuscular Volume 91.7 fl (85-98); Mean Platelet Volume 9.8 fL (7.4-10.4); Monocytes # 0.8 10^3/uL (0.2-0.9); Monocytes % 4.2 %; Neutrophils # 14.63 10^3/uL (1.8-7.7); Neutrophils % 79.9 %; Nucleated Red Blood Cells % 0 %; Platelet Count 379 10^3/cmm (157-399); Red Blood Count 4.36 10^6/uL (3.85-5.65); Red Cell Distribution Width 12.6 % (12.1-15.1); White Blood Count 18.31 10^3/uL (3.29-11.43)
[2023-11-17 13:46] LABS: HCG, Serum Qual Negative (Negative)
[2023-11-17 13:52] LABS: Valproic Acid Level 38.9 ug/mL (50-100)
[2023-11-17 13:53] LABS: Alanine Aminotransferase 11 U/L (0-33); Alkaline Phosphatase 62 U/L (35-105); Aspartate Amino Transferase 11 U/L (0-32); Blood Urea Nitrogen 8 mg/dL (6-20); Calcium 8.9 mg/dL (8.5-10.5); Carbon Dioxide 23 mmol/L (22-29); Chloride 107 mmol/L (98-107); Creatinine Clr Calc Pharmacy 101.4222; Glucose 78 mg/dL (65-115); Lipase 21 U/L (13-60); Osmolality Calculated 291 mOsm/kg (285-295); Sodium 142 mmol/L (136-145); Total Bilirubin 0.5 mg/dL (0.15-1.2)
[2023-11-17 14:00] VITALS: BP 117/76; PULSE 93; RESP 16; O2SAT 94
[2023-11-17] MEDS: iohexol 350 mg/mL 500 mL Btl (per mL) IV (14:13)
[2023-11-17 14:46] VITALS: BP 143/81; PULSE 101; RESP 16; O2SAT 95
[2023-11-17] MEDS: ketorolac 30 mg/mL INJ IVP (15:15)
[2023-11-17] MEDS: methylPREDNISolone sod succ 125 mg/2 mL INJ IVP (15:16)
[2023-11-17 15:18] VITALS: BP 109/75; PULSE 78; RESP 16; O2SAT 95
[2023-11-17 15:42] VITALS: BP 117/77; PULSE 93; RESP 16; O2SAT 96
== END 2023-11-17 15:44 | disposition home or self-care (01) ==
PROVIDERS: Emergency Medicine; Emergency Provider Emergency Medicine; PCP Physician Assistant
DX: K52.9 Noninfective gastroenteritis and colitis, unspecified (principal); N39.0 Urinary tract infection, site not specified; Z87.891 Personal history of nicotine dependence
CPT/HCPCS: 36415; 74177; 76830; 80053; 80164; 81001; 83690; 84703; 85025; 86140; 87077; 87086; 87186; 96374; 96375; 99285; J1885; J2919

== ENCOUNTER → 2023-12-10 08:33 | Outpatient (BNVA) | payer MEDICAID, SELFPAY | PROVIDERS: PCP Physician Assistant; Referring Provider Nurse Practitioner Psychiatric/Mental Health; Visit Provider Internal Medicine Cardiovascular Disease | DX: Z79.899 Other long term (current) drug therapy (principal); R00.1 Bradycardia, unspecified; I49.1 Atrial premature depolarization | CPT/HCPCS: 93005 ==

== ENCOUNTER → 2023-12-15 10:04 | Outpatient (BNVA) | payer OTHER, SELFPAY | PROVIDERS: PCP Physician Assistant; Visit Provider Nurse Practitioner Psychiatric/Mental Health | DX: Z79.899 Other long term (current) drug therapy (principal) | CPT/HCPCS: 82306 ==

== ENCOUNTER → 2024-02-10 12:11 | Outpatient (BNVA) | payer OTHER, SELFPAY | PROVIDERS: PCP Physician Assistant; Visit Provider Internal Medicine Cardiovascular Disease | DX: R00.0 Tachycardia, unspecified (principal); R00.2 Palpitations; R07.9 Chest pain, unspecified | CPT/HCPCS: 93005 ==

== ENCOUNTER 2024-02-26 18:08 | Inpatient (IN) | payer MEDICAID, SELFPAY ==
[2024-02-26 18:11] VITALS: BP 157/99; PULSE 148; RESP 18; TEMP 36.9; O2SAT 99
--- NOTE | 2024-02-26 18:22 | ED.C_ITS ---
HPI - Psych 2 General: Chief Complaint: Psychiatric Symptoms Stated Complaint: 96 Time Seen by Provider: 02/26/24 18:10 Source: patient and police Mode of arrival: ambulatory Limitations: no limitations History of Present Illness: 29-year-old female who is here on a 96-h our hold patient was seen at [facility] earlier did not mention she had been having suicidal thoughts they placed her on a court ordered 96-hour hold patient is here with police she states she has had some passing thoughts denies any specific plan currently has a history of bipolar disorder and depression Associated symptoms: Reports depression and suicidal ideation Related Data Home Medications Medication Instructions Recorded Confirmed levothyroxine 25 mcg tablet 25 mcg PO DAILY 03/22/19 02/10/24 norgestimate 0.25 mg-ethinyl 1 tab PO DAILY 11/17/23 02/10/24 estradiol 35 mcg tablet (Sprintec (28)) sumatriptan succinate 50 mg tablet See Rx Instructions .Route .COMPLEX 11/17/23 02/10/24 Previous Rx's Medication Instructions Recorded ondansetron 4 mg disintegrating 4 mg PO Q8H PRN nausea and 07/19/23 tablet vomiting #10 tabs quetiapine 25 mg tablet (Seroquel) 25 mg PO BID PRN 01/13/24 anxiety/agitation/psychosis #60 tabs divalproex 500 mg tablet,delayed 1,500 mg (3 x 500 mg) PO .8 pm #90 02/10/24 release tabs folic acid 1 mg tablet 1 mg PO .8 pm #30 tabs 02/10/24 propranolol 10 mg tablet 5 mg (1/2 x 10 mg) PO BID PRN 02/10/24 anxiety #30 tabs quetiapine 300 mg tablet,extended 300 mg PO .9 pm #30 tabs 02/10/24 release 24 hr (Seroquel XR) Allergies Allergy/AdvReac Type Severity Reaction Status Date / Time amoxicillin Allergy ALGY-Rash Verified 02/10/24 08:51 Review of Systems 2 Const: Denies: fever(s), chills, body aches or change in appetite ENMT: Denies: throat pain or dental pain Card: Denies: chest pain Resp: Denies: dyspnea GI: Denies: abdominal pain, nausea, vomiting or diarrhea : Denies: dysuria Musc: Denies: neck pain or back pain Skin/Breast: Denies: rash Neuro: Denies: headache(s) Psych: Reports: depression and suicidal ideation PFS ED 2 PFSH: Medical History Generalized anxiety disorder with panic attacks Autism spectrum disorder Cannabis dependence with current use Post-traumatic stress disorder, chronic Bipolar I disorder, most recent episode mixed, severe with psychotic features Psychiatric care Hypothyroidism (acquired) Surgical History History of delivery No pertinent past surgical history Family History Father CAD (coronary artery disease) Grandmother Diabetes Social History Smoking and tobacco/nicotine status: never used tobacco/nicotine Second hand smoke exposure: Yes Alcohol intake: never Substance/Drug Use: never Adopted: No Caregiver/support person: Yes Lives independently: No Household members: spouse Marital status: Number of children: 0 Number of grandchildren: 0 Current occupational status: unemployed Current gender identity: Female Physical Exam 2 Const: COMMON NORMALS: no acute distress, patient oriented x3 and healthy appearing HENMT: COMMON NORMALS: normocephalic and atraumatic HEAD & SCALP: n ormocephalic and atraumatic Eye: COMMON NORMALS: conjunctivae normal CONJUNCTIVA: Yes conjunctivae normal Neck/C-Spine: COMMON NORMALS: full ROM and supple Chest: COMMONS NORMALS: normal inspection of the chest Resp: COMMON NORMALS: normal respiratory effort Cardio: COMMON NORMALS: regular rate, regular rhythm and No murmurs present (Cardio) RATE: regular rate RHYTHM: regular rhythm Extremity: COMMON NORMALS: normal to inspection and full ROM Neuro: COMMON NORMALS: patient oriented x3, moves all extremities and no focal motor deficits Psych: COMMON NORMALS: mental status grossly normal, Normal thought process present and cooperative MOOD & AFFECT: Yes depressed mood THOUGHT PROCESS: Normal thought process present Skin: COMMON NORMALS: no rashes or lesions noted and no wounds GENERAL SKIN EXAM: no rashes or lesions noted Course 2 Vital Signs: Vital signs: Vital Signs Temperature 98.5 F 02/26/24 18:11 Pulse Rate 148 H 02/26/24 18:11 Respiratory Rate 18 02/26/24 18:11 Blood Pressure 157/99 02/26/24 18:11 Pulse Oximetry 99 02/26/24 18:11 Oxygen Delivery Me thod Room Air 02/26/24 18:11 MDM - Psych Medical Decision Making Patient presents here with suicidal ideations she is placed on a 96-hour hold she is medically cleared I spoke to psychiatrist will admit at this time. Medical Records I reviewed the patient's medical records. Lab Data I reviewed the patient's lab results. 02/26/24 18:42 02/26/24 18:42 Laboratory Results WBC 9.16 10^3/uL (3.29-11.43) 02/26/24 18:42 RBC 4.22 10^6/uL (3.85-5.65) 02/26/24 18:42 Hgb 13.10 g/dL (11.27-16.99) 02/26/24 18:42 Hct 38.7 % (36-47) 02/26/24 18:42 MCV 91.7 fl (85-98) 02/26/24 18:42 MCH 31.0 pg (27-33) 02/26/24 18:42 MCHC 33.9 g/dL (30-55) 02/26/24 18:42 RDW 12.5 % (12.1-15.1) 02/26/24 18:42 Plt Count 355 10^3/cmm (157-399) 02/26/24 18:42 MPV 9.8 fL (7.4-10.4) 02/26/24 18:42 Neut % (Auto) 56.2 % 02/26/24 18:42 Lymph % (Auto) 34.0 % 02/26/24 18:42 Carter % (Auto) 7.6 % 02/26/24 18:42 Eos % (Auto) 1.5 % 02/26/24 18:42 Baso % (Auto) 0.5 % 02/26/24 18:42 Neut # (Auto) 5.14 10^3/uL (1.8-7.7) 02/26/24 18:42 Lymph # (Auto) 3.1 10^3/uL (0.8-4.8) 02/26/24 18:42 Carter # (Auto) 0.7 10^3/uL (0.2-0.9) 02/26/24 18:42 Eos # (Auto) 0.1 10^3/uL (0.0-0.8) 02/26/24 18:42 Baso # (Auto) 0.1 10^3/uL (0.0-0.1) 02/26/24 18:42 Nucleated RBC % (auto) 0 % 02/26/24 18:42 Nucleated RBCs # 0.0 /100WBC 02/26/24 18:42 Sodium 135 mmol/L (136-145) L 02/26/24 18:42 Potassium 3.8 mmol/L (3.5-5.1) 02/26/24 18:42 Chloride 102 mmol/L (98-107) 02/26/24 18:42 Carbon Dioxide 20 mmol/L (22-29) L 02/26/24 18:42 Anion Gap 16.8 (5-19) 02/26/24 18:42 BUN 7 mg/dL (6-20) 02/26/24 18:42 Creatinine 1.1 mg/dL (0.5-0.9) H 02/26/24 18:42 GFR Calculation 58.3 mL/min (90-130) L 02/26/24 18:42 Glucose 142 mg/dL (65-115) H 02/26/24 18:42 Calculated Osmolality 280 mOsm/kg (285-295) L 02/26/24 18:42 Calcium 9.0 mg/dL (8.5-10.5) 02/26/24 18:42 Total Bilirubin 0.2 mg/dL (0.15-1.2) 02/26/24 18:42 AST 14 U/L (0-32) 02/26/24 18:42 ALT 10 U/L (0-33) 02/26/24 18:42 Alkaline Phosphatase 69 U/L (35-105) 02/26/24 18:42 Total Protein 7.3 g/dL (6.6-8.7) 02/26/24 18:42 Albumin 3.8 g/dL (3.5-5.2) 02/26/24 18:42 Globulin 3.5 g/dL (1.3-4.6) 02/26/24 18:42 Salicylates < 0.3 mg/dL (3-10) L 02/26/24 18:42 Acetaminophen < 5.0 ug/mL (10-30) L 02/26/24 18:42 Ethyl Alcohol < 10 mg/dL (0-10) 02/26/24 18:42 No radiology studies performed this visit Discharge Plan Discharge Patient Disposition: Admitted As Inpatient Clinical Impression: Suicidal ideation Condition: Stable Prescriptions: No Action quetiapine [Seroquel] 25 mg tablet 25 mg PO BID PRN (Reason: anxiety/agitation/psychosis) Qty: 60 3RF Rx Instructions: May take one tablet twice per day as needed for anxiety/agitation/psychosis quetiapine [Seroquel XR] 300 mg tablet extended release 24 hr 300 mg PO .9 pm Qty: 30 3RF Rx Instructions: Take one tablet at 9 pm divalproex 500 mg tablet,delayed release (DR/EC) 1,500 mg PO .8 pm Qty: 90 3RF Rx Instructions: Take three tablets at 8 pm folic acid 1 mg tablet 1 mg PO .8 pm Qty: 30 3RF Rx Instructions: Take one tablet at 8 pm propranolol 10 mg tablet 5 mg PO BID PRN (Reason: anxiety) Qty: 30 1RF Rx Instructions: may take half tablet twice per day as needed for anxiety levothyroxine 25 mcg Tablet 25 mcg PO DAILY ondansetron 4 mg tablet,disintegrating 4 mg PO Q8H PRN (Reason: nausea and vomiting) Qty: 10 0RF Sprintec (28) 0.25-35 mg-mcg tablet 1 tab PO DAILY sumatriptan succinate 50 mg tablet See Rx Instructions .ROUTE .COMPLEX Rx Instructions: TAKE ONE TABLET BY MOUTH AT ONSET OF MIGRAINE, MAY REPEAT IN 1 TO 2 HOURS, MAX OF 2 TABS IN 24 HOURS. Referrals: Manisha Del Toro PA [Primary Care Provider] - Coding Level of Care Code ED [employer] for Noris Archer
[2024-02-26 18:52] LABS: Basophils # 0.1 10^3/uL (0.0-0.1); Basophils % 0.5 %; Eosinophils # 0.1 10^3/uL (0.0-0.8); Eosinophils % 1.5 %; Hematocrit 38.7 % (36-47); Lymphocytes # 3.1 10^3/uL (0.8-4.8); Mean Corpuscular HGB Conc 33.9 g/dL (30-55); Mean Corpuscular Volume 91.7 fl (85-98); Mean Platelet Volume 9.8 fL (7.4-10.4); Monocytes # 0.7 10^3/uL (0.2-0.9); Monocytes % 7.6 %; Neutrophils # 5.14 10^3/uL (1.8-7.7); Neutrophils % 56.2 %; Nucleated Red Blood Cells % 0 %; Platelet Count 355 10^3/cmm (157-399); Red Blood Count 4.22 10^6/uL (3.85-5.65); Red Cell Distribution Width 12.5 % (12.1-15.1); White Blood Count 9.16 10^3/uL (3.29-11.43)
[2024-02-26 19:09] LABS: Alanine Aminotransferase 10 U/L (0-33); Albumin Level 3.8 g/dL (3.5-5.2); Alkaline Phosphatase 69 U/L (35-105); Anion Gap 16.8 (5-19); Aspartate Amino Transferase 14 U/L (0-32); Blood Urea Nitrogen 7 mg/dL (6-20); Carbon Dioxide 20 mmol/L (22-29); Chloride 102 mmol/L (98-107); Creatinine Clr Calc Pharmacy 82.2342; Globulin 3.5 g/dL (1.3-4.6); Glomerular Filtration Rate 58.3 mL/min (90-130); Glucose 142 mg/dL (65-115); Osmolality Calculated 280 mOsm/kg (285-295); Potassium 3.8 mmol/L (3.5-5.1); Sodium 135 mmol/L (136-145); Total Bilirubin 0.2 mg/dL (0.15-1.2); Total Protein 7.3 g/dL (6.6-8.7)
[2024-02-26 19:17] LABS: Acetaminophen < 5.0 ug/mL (10-30); Alcohol Level < 10 mg/dL (0-10); Salicylate < 0.3 mg/dL (3-10)
--- NOTE | 2024-02-26 19:36 | PC.NURSE ---
96 Hr pt rights reviewed with pt @[id number] with assistance of [facility] disabilities services officer Helio. All education reviewed. Pt verbalized that she understook the 96 hr hold process, but also stated she understands that she is being held against her will . HS educated why 96 hr was placed. Pt copy was left with pt, and she then proceeded to take the paper and crumble it up into a ball and throw it onto the floor. Pt visibly upset and crying, but otherwise cooperative at this time.
--- NOTE | 2024-02-26 20:05 | PC.NURSE ---
Pt advised she can call her from [facility] since she has been admitted for a 96hr hold. Pt is upset she has to stay due to not being SI. Pt stated she is being held against her will. Physician notified that the pt is upset about being admitted.
[2024-02-26] MEDS: LORazepam 2 mg Tablet PO (20:45)
[2024-02-26 20:50] VITALS: BP 122/73; PULSE 108; RESP 18; O2SAT 96
[2024-02-26 21:32] VITALS: BP 131/80; PULSE 106; TEMP 37.2; O2SAT 96
[2024-02-26 23:19] LABS: HCG Qualitative Urine. Negative (Negative)
[2024-02-26 23:31] LABS: Amphetamines Screen Urine Negative (Negative); Barbiturates Screen Urine Negative (Negative); Benzodiazepines Screen Urine Positive (Negative); Cocaine Screen Urine Negative (Negative); Opiate Screen Urine Negative (Negative); PCP Screen Urine Negative (Negative); THC Screen Urine Positive (Negative)
[2024-02-26] MEDS: divalproex DR 500 mg Tablet 1500 MG PO (23:33)
[2024-02-26] MEDS: quetiapine XR (24HR) 300 mg Tablet PO (23:34)
[2024-02-26] MEDS: hyDROXYzine 25 mg Capsule 50 MG PO (23:34)
[2024-02-26] MEDS: trazodone 50 mg Tablet PO (23:35)
[2024-02-27 06:00] VITALS: BP 132/96; PULSE 92; RESP 16; TEMP 36.7; O2SAT 96
[2024-02-27] MEDS: levothyroxine 25 mcg Tablet PO (06:33)
[2024-02-27] MEDS: folic acid 1 mg Tablet PO (08:41)
[2024-02-27] MEDS: hyDROXYzine 25 mg Capsule 50 MG PO (12:29)
--- NOTE | 2024-02-27 12:47 | PC.NURSE ---
pt is up at nurses station crying stating that she was told that DR. Mera would be seeing her at 10am today and it is past that time. pt stated she is not suicidal and it is holding her against her will to keep her here when she is not suicidal. when this nurse asked pt what happen that she is here at this facility pt stated that the night before she had gotten into an argument with her in front of her son and she was upset and crying, her picked her up and escorted her to the crisis center, pt stated that when she was talking to them they wanted her to go to the Emergency room for help. at that time pt stated she was not suicidal and didn't want to go to the Emergency room. pt stated that she left and went home then five hours later the deputy sheriff civil division came to her house and arrested her an brought her to the Emergency room against her will. pt states she wants to go home, request that she be transferred to another facility and to be seen by another psychiatrist that can see her now. pt states that she is not suicidal and that she will be going home tonight, pt states that she will be contacting a nailhead setter if she does not go home tonight. multiple attempts by nursing staff to explain to pt that as soon as the Doctor is available we will let him know she is wanting to speak with him, but she is on a 96 hour hold so it will be up to the doctor decide if she is stable enough to leave at that time, and the best thing she can do is try and remain calm and wait on the doctor to be available. pt stated at that time I will call my now. after pt hung up the phone a gentleman came to the unit using the neuro psych unit door. at that time he identified himself as the patients . pt came to the window stating we were holding her against her will and denying her right to see the doctor. pt attempted to explain to pt that she had to play with in the rules that were set up and that everyone was aware of what is going on. pt continued to go from crying to appearing to be mad. pt at one time stated that she knew all the feather boner in this town and that she would be contacting them. at that time nursing staff explained to both patient and her that visiting hours are at 3pm an that he is welcome to come back then.
--- NOTE | 2024-02-27 13:01 | P.NPUHP_ITS ---
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 February 26, 2024, feeling desperate and in emotional pain, but described it as a passive wish and stated she did not intend to act on it. [place] better after discussing a safety plan and no longer has suicidal thoughts. Denied any thoughts to hurt or kill anyone else. Denied hearing or seeing things others cannot and feeling paranoid. Described feeling sad and overwhelmed on February 26, 2024, with sadness and anger growing, leading to a visit to [facility]. Currently feels sad about being hospitalized but is trying to keep hopes up. Stress related to the holidays and relationship difficulties with her noted. Attention and concentration are intact and memory appeared unreliable at times but likely intentionally so, but none were formally tested. She is alert and oriented x 3. Insight and judgment are impaired. Impulse control is impaired. 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 The patient is experiencing significant emotional distress characterized by overwhelming sadness and anger, which led to suicidal ideations on February 26, 2024. The patient reported these feelings to her and subsequently sought help at [facility], where a safety plan was developed. Staff report however that this was a secondary option as their desire was that she be evaluated in the emergency department because there was concerns about the veracity of her reported turnaround in lethality. She presents on a 96-hour hold because of this concern and is frustrated that the evaluation process does not involve her endorsing her lack of lethality and being discharged. 1. Continue current medication. 2. Will get some collateral information. 3. Continue individual, group and milieu therapy. 4. Continue every 15 minute checks for safety. 5. Encourage sober living treatment after discharge at the highest level care to which she is willing to commit. 6. We will evaluate against the backdrop of the 96-hour hold and discharge when appropriate. Involuntary Hold Information 2 96 Hour Hold: 96 Hour Involuntary Admission: Yes 96 Hour Hold Ending Date: 03/04/24 96 Hour Hold Ending Time: 18:15 Other Hold: Hold End Date: 03/04/24 Attestations NPU 2 Medical Necessity Statement*: Inpatient hospitalization is medically necessary and the clinically appropriate intervention at this time. We will monitor medications and make changes as indicated. Patient will be in the hospital for over two midnights. Likely length of stay is 2-4 days. Coding Level of Care Code Acute Code for Chg Fwd Diagnoses Acute psychosis F23 Anxiety and depression F41.9; F32.9 Hypothyroidism (acquired) E03.9 Palpitations R00.2
[2024-02-27] MEDS: OLANZapine 5 mg ODT PO ×2 (13:02→17:12)
--- NOTE | 2024-02-27 13:30 | PC.NURSE ---
PT HAS BEEN OBSERVED COMING TO THE NURSES STATION HYSTERICAL AND TEARFUL MAKING THREATS SHE IS GOING TO [place] THIS PLACE AND EVERYONE HERE. I'M CALLING EVERY ARCHITECTURAL COATING FINISHER IN [place]OWN AND POSTING IT ON FACEBOOK THAT YOU ARE KEEPING ME IN HERE AND THE DOCTOR WON'T SEE ME. PT HAS BEEN EDUCATED BY THIS RN AND 3 OTHER NURSES ABOUT THE 96 OUR HOLD PROCESS AND THAT DR. ZHU WILL SEE HER WITHIN 24 HOURS OF BEING ADMITTED TO THE UNIT. IT WAS EXPLAINED TO PT THE WOULD BE HERE THIS AFTERNOON AND START SEEING PTS AND SHE WOULD ALSO BE SEEN AT THAT TIME. PT CALLED AND INFORMED HIM THAT STAFF WAS DENYING HER TO SEE THE DR. PTS DID COME TO THE NPU ASKING QUESTIONS AND WANTING TO KNOW WHY SHE HAS NOT BEEN SEEN. PT AND WERE BOTH EDUCATED AGAIN AND QUESTIONS WERE ANSWERED. PTS WAS CALM AND REASONABLE WITH THE INFORMATION HE WAS GIVEN AND HE DID ATTEMPT TO CALM THE PT DOWN WHILE STANDING AT THE NURSES STATION. PT DID EVENTUALLY CALM BUT CONTINUED TO MAKE THREATS THAT MY ARCHITECTURAL COATING FINISHER FRIENDS WILL KNOW ABOUT THIS. PT WAS INFORMED THAT IT IS HER RIGHT TO TELL HER FRIENDS ABOUT HER EXPERIENCE. DR. ZHU WAS NOTIFIED OF PT BEHAVIORS, NO NEW ORDERS RECEIVE. MEDIA AID JENNY CARRANZA WAS NOTIFIED ON ROUNDS. NPU DIRECTOR INDUSTRIAL MEGHNA Liz RN WAS ALSO NOTIFIED VIA PHONE.
[2024-02-27 14:00] VITALS: BP 118/92; PULSE 122; RESP 16; TEMP 36.9; O2SAT 96
--- NOTE | 2024-02-27 14:17 | PC.NURSE ---
Patient Note Patient at the window around 1230, patient tearful and stating she wants to be released. Patient states i was told that i would see the dr. at 10am. It is past that and i am being held against my will . 2 nurses explained several times how a 96 hour hold works and how it was started. Patient insists that she is no longer suicidal and should not still be here. no matter what explanation staff gave, patient continued to work herself up getting louder and more frustrated. While talking with her, patient's arrived to drop off home medication. encouraged patient to play within the rules and try to keep it together and talk to the dr. Patient continues to state this isn't fair and I shouldn't be here . Patient states she was seen at the stabilization center. States she talked through her thoughts and felt better when she left. States that 5 hours later, the corrective therapy aide teacher showed up and arrested me and brought me here . Patient continues to talk in the nulato of i shouldn't be here and demanding to talk to the dr. Told the patient that the doctor would see her today and was not yet on the unit at that time.
--- NOTE | 2024-02-27 17:20 | PC.NURSE ---
patient behavior patient crying almost hysterically on the phone. Has spoken with the doctor. She states, no one listens to me, i will be here forever. Patient demanded something for anxiety, zydis was given. Less than 5 minutes later, patient knocking on window demanding something else for anxiety, this isn't working . Explained to patient how zydis works, patient again asked for something else and this staff told her we needed to let the zydis work. she then states so you just aren't going to treatment me and turned and walked away.
[2024-02-27] MEDS: NORGESTIMATE ETHINYL ESTRADIOL 1 EACH PO (17:33)
[2024-02-27] MEDS: quetiapine XR (24HR) 300 mg Tablet PO (21:26)
[2024-02-27] MEDS: divalproex DR 500 mg Tablet 1500 MG PO (21:26)
[2024-02-27] MEDS: trazodone 50 mg Tablet PO (21:26)
[2024-02-27 22:00] VITALS: BP 121/77; PULSE 71; RESP 14; TEMP 37.1; O2SAT 98
--- NOTE | 2024-02-27 22:13 | PC.NURSE ---
PATIENT UP TO DESK SEVERAL TIMES IN THE LAST HOUR CRYING HYSTERICALLY THAT SHE IS BEING HELD IN THIS HALFWAY AGAINST HER WILL. HAS BEEN ON THE PHONE SEVERAL TIMES CRYING HYSTERICALLY TO FAMILY THAT SHE DOESN'T NEED TO BE HERE, THAT SHE IS BEING HELD AGAINST HER WILL. ATTEMPTS MADE BY SEVERAL STAFF, TRYING TO EXPLAIN THAT SHE IS HERE ON A COURT ORDERED 96HOUR HOLD. THAT WHEN THE DOCTOR FEELS SHE IS NO LONGER A THREAT TO HERSELF OR OTHERS, THAT IS WHEN HE WILL DECIDE WEATHER SHE NEEDS MORE TREATMENT, OR THAT HER OUT PATIENT TREATMENT WILL BE MORE BENEFICIAL. BUT THAT UNTIL THE DOCTOR FEELS SHE IS READY TO BE DISCHARGED, SHE NEEDS TO ACCEPT AND ACKNOWLEDGE HER GOALS IN HER TREATMENT, SHE MAY BE HERE LONGER THAN SHE THINKS IS NECESSARY. PATIENT WAS REMINDED THAT NO ONE IN THIS UNIT PUT HER HERE. THAT A CHIEF NURSE EXECUTIVE SIGNED COURT ORDER WAS THE BASIS OF HER BEING HERE. THAT COMMENTS MADE BY HER TO SOMEONE, MADE THEM BELIEVE SHE WAS A DANGER TO HERSELF. PATIENT DENIES HAVING SAID ANYTHING LIKE THAT. PATIENT AGAIN WAS TOLD THAT IF AND WHEN SHE IS TO BE RELEASED, IS UP TO ONLY THE DOCTOR. THAT HE IS THE ONLY ONE TO MAKE THAT DECISION. PATIENT THEN WALKED AWAY, WENT TO DOUBLE DOORS AND PUSHED ON THEM TRYING TO OPEN THEM, THEN WANT TO HER ROOM AND LAID DOWN ON HER BED. RN WENT TO ATTEMPT TO TALK TO PATIENT, CALLED HER NAME AND PATIENT IGNORED RN. PATIENT IS OBSERVED TO BE RESTING QUIETLY IN BED WITH BOTH EYES CLOSED AT THIS TIME. EVERY 15 MINUTE MONITORING CONTINUES.
[2024-02-28 06:00] VITALS: BP 127/83; PULSE 122; RESP 16; TEMP 36.9; O2SAT 99
[2024-02-28] MEDS: levothyroxine 25 mcg Tablet PO (06:21)
[2024-02-28] MEDS: folic acid 1 mg Tablet PO (08:40)
[2024-02-28] MEDS: NORGESTIMATE ETHINYL ESTRADIOL 1 EACH PO (08:40)
[2024-02-28] MEDS: hyDROXYzine 25 mg Capsule 50 MG PO ×3 (08:40→20:57)
--- NOTE | 2024-02-28 10:54 | P.NPUPN_ITS ---
Subjective NPU 2 Subjective: Patient presented today reporting that she is doing better. Patient is much less adversarial per staff reports and direct observation. She did have her log stacker operator visit today to talk about getting her out of here. Otherwise she denied any new issues or problems and continued to deny lethality. She denied any side effects to her medication. Mental Status Exam 2 MSE Comments: This is a well-nourished well-developed white female in hospital scrubs with limited grooming but adequate eye contact. No abnormal movements except for mild psychomotor retardation. More cooperative with exam in no acute distress. Speech was slightly decreased rate and volume. Mood described as better today, affect is congruent. Thought process, organized. Thought content: patient denies suicidal or homicidal ideation, no delusions reported or noted, and denies auditory or visual hallucinations. Reported having suicidal ideations on February 26, 2024, feeling desperate and in emotional pain, but described it as a passive wish and stated she did not intend to act on it. [place] better after discussing a safety plan and no longer has suicidal thoughts. Denied any thoughts to hurt or kill anyone else. Denied hearing or seeing things others cannot and feeling paranoid. Described feeling sad and overwhelmed on February 26, 2024, with sadness and anger growing, leading to a visit to [facility]. Currently feels sad about being hospitalized but is trying to keep hopes up. Stress related to the holidays and relationship difficulties with her noted. Attention and concentration are intact and memory appeared unreliable at times but likely intentionally so, but none were formally tested. She is alert and oriented x 3. Insight and judgment are limited but improving. Impulse control is impaired. 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 The patient is experiencing significant emotional distress characterized by overwhelming sadness and anger, which led to suicidal ideations on February 26, 2024. The patient reported these feelings to her and subsequently sought help at [facility], where a safety plan was developed. Staff report however that this was a secondary option as their desire was that she be evaluated in the emergency department because there was concerns about the veracity of her reported turnaround in lethality. She presents on a 96-hour hold because of this concern and is frustrated that the evaluation process does not involve her endorsing her lack of lethality and being discharged. 1. Continue current medication. 2. Will get some collateral information. 3. Continue individual, group and milieu therapy. 4. Continue every 15 minute checks for safety. 5. Encourage sober living treatment after discharge at the highest level care to which she is willing to commit. 6. We will evaluate against the backdrop of the 96-hour hold and discharge when appropriate. Patient much less adversarial today. Involuntary Hold Information 2 96 Hour Hold: 96 Hour Involuntary Admission: Yes 96 Hour Hold Ending Date: 03/04/24 96 Hour Hold Ending Time: 18:15 Other Hold: Hold End Date: 03/04/23 Attestations NPU 2 Medical Necessity Statement*: Inpatient hospitalization is medically necessary and the clinically appropriate intervention at this time. We will monitor medications and make changes as indicated. Likely length of stay is 1-3 days. Coding Level of Care Code Acute Code for g Fwd Diagnoses Acute psychosis F23 Anxiety and depression F41.9; F32.9 Hypothyroidism (acquired) E03.9 Palpitations R00.2
[2024-02-28 14:00] VITALS: BP 146/73; PULSE 128; RESP 16; TEMP 36.6; O2SAT 96
[2024-02-28 20:50] VITALS: BP 108/75; PULSE 107; RESP 18; TEMP 36.8; O2SAT 98
[2024-02-28] MEDS: divalproex DR 500 mg Tablet 1500 MG PO (20:57)
[2024-02-28] MEDS: trazodone 50 mg Tablet PO (20:57)
[2024-02-28] MEDS: quetiapine XR (24HR) 300 mg Tablet PO (20:57)
[2024-02-28] MEDS: acetaminophen 325 mg Tablet 650 MG PO (23:02)
[2024-02-29] MEDS: OLANZapine 5 mg ODT PO (03:04)
[2024-02-29 06:00] VITALS: BP 112/74; PULSE 99; RESP 16; TEMP 36.9; O2SAT 97
[2024-02-29] MEDS: levothyroxine 25 mcg Tablet PO (06:11)
[2024-02-29] MEDS: folic acid 1 mg Tablet PO (07:53)
[2024-02-29] MEDS: NORGESTIMATE ETHINYL ESTRADIOL 1 EACH PO (07:54)
[2024-02-29] MEDS: acetaminophen 325 mg Tablet 650 MG PO (09:27)
--- NOTE | 2024-02-29 13:04 | W.PM.NPUDCS ---
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 # (Auto) 0.7 10^3/uL (0.2- 0.9) 02/26/24 18:42 Eos # (Auto) 0.1 10^3/uL (0.0- 0.8) 02/26/24 18:42 Baso # (Auto) 0.1 10^3/uL (0.0- 0.1) 02/26/24 18:42 Nucleated RBC % (a uto) 0 % 02/26/24 18:42 Nucleated RBCs # 0.0 /100WBC 02/26/24 18:42 Sodium 135 mmol/L (136-1 45) L 02/26/24 18:42 Potassium 3.8 mmol/L (3.5-5 .1) 02/26/24 18:42 Chloride 102 mmol/L (98-10 7) 02/26/24 18:42 Carbon Dioxide 20 mmol/L (22-29) L 02/26/24 18:42 Anion Gap 16.8 (5-19) 02/26/24 18:42 BUN 7 mg/dL (6-20) 02/26/24 18:42 Creatinine 1.1 mg/dL (0.5-0. 9) H 02/26/24 18:42 GFR Calculation 58.3 mL/min (90-1 30) L 02/26/24 18:42 Glucose 142 mg/dL (65-115 ) H 02/26/24 18:42 Calculated Osmolal ity 280 mOsm/kg (285- 295) L 02/26/24 18:42 Calcium 9.0 mg/dL (8.5-10 .5) 02/26/24 18:42 Total Bilirubin 0.2 mg/dL (0.15-1 .2) 02/26/24 18:42 AST 14 U/L (0-32) 02/26/24 18:42 ALT 10 U/L (0-33) 02/26/24 18:42 Alkaline Phosphata se 69 U/L (35-105) 02/26/24 18:42 Total Protein 7.3 g/dL (6.6-8.7 ) 02/26/24 18:42 Albumin 3.8 g/dL (3.5-5.2 ) 02/26/24 18:42 Globulin 3.5 g/dL (1.3-4.6 ) 02/26/24 18:42 HCG, Qual Negative (Negati ve) 02/26/24 23:05 Salicylates < 0.3 mg/dL (3-10 ) L 02/26/24 18:42 Urine Opiates Scre en Negative ng/mL (N egative) 02/26/24 23:05 Acetaminophen < 5.0 ug/mL (10-3 0) L 02/26/24 18:42 Ur Barbiturates Sc reen Negative ng/mL (N egative) 02/26/24 23:05 Ur Phencyclidine S crn Negative ng/mL (N egative) 02/26/24 23:05 Ur Amphetamines Sc reen Negative ng/mL (N egative) 02/26/24 23:05 U Benzodiazepines Scrn Positive ng/mL (N egative) H 02/26/24 23:05 Urine Cocaine Scre en Negative ng/mL (N egative) 02/26/24 23:05 U Marijuana (THC) Screen Positive ng/mL (N egative) H 02/26/24 23:05 Ethyl Alcohol < 10 mg/dL (0-10) 02/26/24 18:42 Vitals: Last Vital Signs Temp 98.4 F 02/29/24 06:00 Pulse 99 02/29/24 06:00 Resp 16 02/29/24 06:00 BP 112/74 12/30/24 06:00 Pulse Ox 97 02/29/24 06:00 O2 Del Method Room Air 02/29/24 06:00 Discharge Plan Discharge Patient Disposition: Home Condition: Stable Prescriptions: Continued quetiapine [Seroquel] 25 mg tablet 25 mg PO BID PRN (Reason: anxiety/agitation/psychosis) Qty: 60 3RF Rx Instructions: May take one tablet twice per day as needed for anxiety/agitation/psychosis propranolol 10 mg tablet 5 mg PO BID PRN (Reason: anxiety) Qty: 30 1RF Rx Instructions: may take half tablet twice per day as needed for anxiety levothyroxine 25 mcg Tablet 25 mcg PO DAILY norgestimate-ethinyl estradiol [Sprintec (28)] 0.25-35 mg-mcg tablet 1 tab PO DAILY sumatriptan succinate 50 mg tablet See Rx Instructions .ROUTE .COMPLEX Rx Instructions: TAKE ONE TABLET BY MOUTH AT ONSET OF MIGRAINE, MAY REPEAT IN 1 TO 2 HOURS, MAX OF 2 TABS IN 24 HOURS. divalproex 500 mg tablet,delayed release (DR/EC) 1,500 mg PO BEDTIME Rx Instructions: Take three tablets at bed time quetiapine [Seroquel XR] 300 mg tablet extended release 24 hr 300 mg PO BEDTIME Rx Instructions: Take one tablet at 9 pm folic acid 1 mg tablet 1 mg PO DAILY Rx Instructions: Take one tablet at 8 pm Discharge Orders: Discharge Order (Routine); Ordered 02/29/24 Ordered By: Orlin Mera Referrals: [facility] [Other] (Call Rosemarie Nance, MS,[facility] [phone]) Ramona Todd, PMHNP [Staff Physician] - 03/03/24 8:45 am (Follow up) Manisha Del Toro PA [Primary Care Provider] - Discharge Diet: Regular Discharge Activity: Resume usual activity Patient Instructions: Opioid Safety Discharge Attestations NPU Time Spent in Discharge Care*: less than 30 min Specific Discharge Activities: Specific discharge activities: educating patient, discussing with senior case manager/social workers/dc planners, documenting/other paperwork and evaluating patient/reviewing data Coding Level of Care Code Acute Code for Chg Fwd Diagnoses Acute psychosis F23 Anxiety and depression F41.9; F32.9 Hypothyroidism (acquired) E03.9 Palpitations R00.2
[2024-02-29 13:26] VITALS: BP 112/74; PULSE 99; RESP 16; TEMP 36.9; O2SAT 97
[2024-02-29 14:00] VITALS: RESP 16
== END 2024-02-29 14:13 | disposition home or self-care (01) | DRG 885 ==
LOC: ER 19:37 → NP 20:42
PROVIDERS: Admitting Provider Psychiatry & Neurology Psychiatry; Emergency Provider Emergency Medicine; PCP Physician Assistant; Visit Provider Psychiatry & Neurology Psychiatry
DX: F23 Brief psychotic disorder (principal); R45.851 Suicidal ideations; F41.9 Anxiety disorder, unspecified; F32.A Depression, unspecified; E03.9 Hypothyroidism, unspecified; R00.2 Palpitations
CPT/HCPCS: 80053; 80306; 80307; 81025; 85025; 99285

== ENCOUNTER → 2024-06-21 09:11 | Outpatient (BNVA) | payer OTHER, SELFPAY | PROVIDERS: PCP Physician Assistant; Visit Provider Nurse Practitioner Psychiatric/Mental Health | DX: Z79.899 Other long term (current) drug therapy (principal) | CPT/HCPCS: 80053; 80061; 80164; 83036 ==

== ENCOUNTER 2024-07-14 18:56 | Emergency (ER) | payer OTHER, MEDICAID, SELFPAY ==
[2024-07-14 19:02] VITALS: BP 128/82; PULSE 112; RESP 23; TEMP 36.7; O2SAT 98; BMI 26.6
--- NOTE | 2024-07-14 19:56 | ED_ITS ---
HPI - Anxiety General: Chief Complaint: Anxiety Stated Complaint: si Anxiety Time Seen by Provider: 07/14/24 19:15 History of Present Illness: Patient is a 29-year-old female with history of bipolar disorder that had a verbal altercation with her , when her threatened to leave her. She states she is autistic, and did not know how to deal with the feelings. She initially hit her own head, and dorsum of left hand, however, patient states this is something she does at times out of frustration and was not trying to hurt herself. Initially she was rocking back and forth in triage, and hyperventilating. This has stopped. Patient did not have any additional inter vention other than taking her 50 mg of Seroquel for her anxiety. She denies any suicide ideas, or thoughts. She came to the emergency room because she did not want to harm herself. She does not feel like she will harm herself. She states she has a therapist that she would like to see tomorrow. Associated symptoms: Reports nausea and palpitations; Deny chest pain, chills, fever(s), headache(s) or vomiting Related Data Home Medications ?Medication ?Instructions ?Recorded ?Confirmed levothyroxine 25 mcg tablet 25 mcg PO DAILY 03/22/19 0 07/10/24 norgestimate 0.25 mg-ethinyl 1 tab PO DAILY 11/17/23 0 07/10/24 estradiol 0.035 mg tablet (Sprintec (28)) sumatriptan succinate 50 mg tablet See Rx Instructions .Route .COMPLEX 11/17/23 07/10/24 Previous Rx's ?Medication ?Instructions ?Recorded divalproex 500 mg tablet,delayed 1,500 mg (3 x 500 mg) PO BEDTIME 06/21/24 release #90 tabs propranolol 10 mg tablet 5 mg (1/2 x 10 mg) PO BID OK N 06/21/24 anxiety #30 tabs quetiapine 300 mg tablet,extended 300 mg PO .8 pm #30 tabs 06/21/24 release 24 hr (Seroquel XR) quetiapine 50 mg tablet 50 mg PO TID PRN 06/21/24 anxiety/agitation/psychosis #90 tabs miscellaneous medical supply 1 ea miscellaneous BID wo und #1 ea 07/10/24 sulfamethoxazole 800 1 tab PO BID 10 days #20 tab s 07/10/24 mg-trimethoprim 160 mg tablet (Bactrim DS) Allergies Allergy/AdvReac Type Severity Reaction Status Date / Time amoxicillin Allergy ALGY-Rash Verified 07/10/24 16:54 Review of Systems General: Reports: 10 or more systems reviewed and unremarkable except in HPI and below Const: Denies: fever(s) or chills Eyes: Denies: change in vision or blurry vision ENMT: Denies: throat pain, mouth pain or tinnitus Card: Reports: palpitations; Denies: chest pain Resp: Denies: dyspnea or wheezing GI: Reports: nausea; Denies: abdominal pain or vomiting : Denies: flank pain or difficulty voiding Musc: Denies: neck pain or back pain Neuro: Denies: headache(s), numbness in extremities or weakness in extremities Psych: Reports: anxiety, mood swings, panic attacks and hopelessness; Denies: depression, loss of interest, change in appetite, memory loss, visual hallucinations, auditory hallucinations, suicidal ideation or homicidal ideation PFS ED PFSH: Medical History Generalized anxiety disorder with panic attacks Autism spectrum disorder Cannabis dependence with current use Post-traumatic stress disorder, chronic Bipolar I disorder, most recent episode mixed, severe with psychotic features Psychiatric care Hypothyroidism (acquired) Surgical History History of delivery No pertinent past surgical history Family History Father CAD (coronary artery disease) Grandmother Diabetes Social History Smoking and tobacco/nicotine status: former use of tobacco/nicotine Second hand smoke exposure: Yes Alcohol intake: never Substance/Drug Use: never Adopted: No Caregiver/support person: Yes Lives independently: No Household members: spouse Marital status: Number of children: 0 Number of grandchildren: 0 Current occupational status: unemployed Current gender identity: Female Physical Exam Const: COMMON NORMALS: no acute distress, average body habitus, patient oriented x3 and no limitations GENERAL APPEARANCE: cooperative ORIENTATION/CONSCIOUSNESS: Yes awake, Yes oriented to person, Yes oriented to place and Yes oriented to time; not confused Resp: COMMON NORMALS: normal respiratory effort and clear to auscultation bilaterally EFFORT & INSPECTION: Yes able to speak in complete sentences AUSCULTATION: clear to auscultation bilaterally Cardio: COMMON NORMALS: regular rhythm, S1 normal heart sound present and S2 normal heart sound present RHYTHM: regular rhythm HEART SOUNDS: S1 normal heart sound present and S2 normal heart sound present GI: COMMON NORMALS: Normal to inspection, nondistended, normoactive bowel sounds present, Soft to palpation and non-tender PALPATION: Yes Soft to palpation : COMMON NORMALS: Yes no CVA tenderness BLADDER/KIDNEY EXAM: Yes no CVA tenderness Back/Pelvis: COMMON NORMALS: no CVA tenderness Neuro: COMMON NORMALS: patient oriented x3 SENSORIUM/ORIENTATION: Yes oriented to person, Yes oriented to place and Yes oriented to time Psych: COMMON NORMALS: mental status grossly normal, Normal thought process present, cooperative and speech normal ATTITUDE: Yes agitated (mildly, redirectable) ACTIVITY/MOTOR BEHAVIOR: Yes appropriate eye contact SPEECH: Yes normal speech MOOD & AFFECT: Yes anxious (mild) THOUGHT PROCESS: Normal thought process present, No disorganized and No confused THOUGHT CONTENT: Yes Normal thought content present, No Suicidality present, No Homicidality present and No delusions ATTENTION/CONCENTRATION: Yes attention grossly intact and Yes concentration grossly intact MEMORY/COGNITION: Yes memory grossly intact INSIGHT: Good insight present (Psych) JUDGEMENT: Good judgement present (Psych) Skin: COMMON NORMALS: negative for no wounds (small pinpoint red area to dorsum of left hand x2) Course Vital Signs: Vital signs: Vital Signs Temperature 98.0 F 07/14/24 19:02 Pulse Rate 112 H 07/14/24 19:02 Respiratory Rate 23 H 07/14/24 19:02 Blood Pressure 128/82 07/14/24 19:02 Pulse Oximetry 98 07/14/24 19:02 Oxygen Delivery Me thod Room Air 07/14/24 19:02 MDM - Anxiety Medical Decision Making 29-year-old female with anxiety, bipolar disorder, compliant to medications, and established with therapist, presents with anxiety after fighting with her verbally. She does not want to harm herself and denies any thoughts of harming herself. She would like to be discharged home after calming down. I have asked patient to go to her mother's house tonight to avoid any conflict. Patient states understanding and agrees. Patient is improved after Ativan and is requesting at home. I do not have any red flags of concern with her at this time. There is no suicide thoughts/ideas and she denies them at this time. No radiology studies performed this visit Discharge Plan Discharge Patient Disposition: Home Clinical Impression: Acute anxiety Condition: Stable Prescriptions: No Action sulfamethoxazole-trimethoprim [Bactrim DS] 800-160 mg tablet 1 tab PO BID 10 Days Qty: 20 0RF miscellaneous medical supply Misc 1 ea miscellaneous BID Qty: 1 0RF Rx Instructions: medihoney quetiapine 50 mg tablet 50 mg PO TID PRN (Reason: anxiety/agitation/psychosis) Qty: 90 3RF Rx Instructions: May take one tablet three times per day as needed for anxiety/agitation/psy chosis quetiapine [Seroquel XR] 300 mg tablet extended release 24 hr 300 mg PO .8 pm Qty: 30 3RF Rx Instructions: Take one tablet at 8 pm propranolol 10 mg tablet 5 mg PO BID PRN (Reason: anxiety) Qty: 30 3RF Rx Instructions: may take half tablet twice per day as needed for anxiety divalproex 500 mg tablet,delayed release (DR/EC) 1,500 mg PO BEDTIME Qty: 90 3RF Rx Instructions: Take three tablets at bed time levothyroxine 25 mcg Tablet 25 mcg PO DAILY norgestimate-ethinyl estradiol [Sprintec (28)] 0.25-35 mg-mcg tablet 1 tab PO DAILY sumatriptan succinate 50 mg tablet See Rx Instructions .ROUTE .COMPLEX Rx Instructions: TAKE ONE TABLET BY MOUTH AT ONSET OF MIGRAINE, MAY REPEAT IN 1 TO 2 HOURS, MAX OF 2 TABS IN 24 HOURS. Discharge Orders: Discharge ED (Routine); Ordered 07/14/24 Ordered By: Danika Ramirez Referrals: Manisha Del Toro PA [Primary Care Provider, Physicians Maintenance Technician] Discharge Diet: Usual diet Discharge Activity: Resume usual activity Patient Instructions: Anxiety (ED) Activity Restrictions/Additional Instructions: Please go to your mom's tonight. Call your therapist early in the morning to see your therapist tomorrow. As discussed, you might need to discuss additional strategies or any additional concerns after you think over today's events. Take your medication as prescribed, and as we discussed. No driving tonight. Take care yourself. We are happy to help you if you need us. Print Language: Polish Coding Level of Care Code ED Microfilm Technician for Noris Archer
[2024-07-14] MEDS: LORazepam 0.5 mg Tablet PO (20:25)
[2024-07-14 21:00] VITALS: BP 128/83; PULSE 103; O2SAT 97
== END 2024-07-14 21:02 | disposition home or self-care (01) ==
PROVIDERS: Emergency Provider Physician Assistant; PCP Physician Assistant
DX: F41.8 Other specified anxiety disorders (principal); Z87.891 Personal history of nicotine dependence
CPT/HCPCS: 99283; J9999

== ENCOUNTER → 2024-08-10 15:02 | Outpatient (BNVA) | payer OTHER, SELFPAY | PROVIDERS: PCP Physician Assistant; Visit Provider Nurse Practitioner | DX: R30.9 Painful micturition, unspecified (principal); N39.0 Urinary tract infection, site not specified | CPT/HCPCS: 81000; 87086 ==

== ENCOUNTER → 2024-08-18 18:19 | Outpatient (BNVA) | payer OTHER, SELFPAY | PROVIDERS: PCP Physician Assistant; Visit Provider Family Medicine | DX: R39.9 Unspecified symptoms and signs involving the genitourinary system (principal) | CPT/HCPCS: 81000 ==

== ENCOUNTER → 2025-02-13 11:14 | Outpatient (BNVA) | payer OTHER, SELFPAY | PROVIDERS: PCP Physician Assistant; Visit Provider Nurse Practitioner Psychiatric/Mental Health | DX: Z79.899 Other long term (current) drug therapy (principal) | CPT/HCPCS: 80053; 80164 ==